=== PATIENT | female | born 1940 | race Caucasian/White ===

== ENCOUNTER 2016-09-27 12:02 | Outpatient (CLI) | payer MEDICARE, OTHER | END 2016-09-27 12:03 | disposition home or self-care (01) | DX: C73 Malignant neoplasm of thyroid gland (principal) ==

== ENCOUNTER 2016-11-23 11:54 | Outpatient (CLI) | payer MEDICARE, OTHER | END 2016-11-23 11:55 | disposition home or self-care (01) | DX: R07.81 Pleurodynia (principal) ==

== ENCOUNTER 2016-11-30 10:44 | Outpatient (CLI) | payer MEDICARE, OTHER | END 2016-11-30 10:45 | disposition home or self-care (01) | DX: Z12.31 Encounter for screening mammogram for malignant neoplasm of breast (principal) ==

== ENCOUNTER 2016-12-22 13:38 | Outpatient (CLI) | payer MEDICARE, OTHER | END 2016-12-22 13:39 | disposition critical access hospital (66) | LOC: EMS 13:38 | PROVIDERS: ATTEND Surgery | DX: S09.90XA Unspecified injury of head, initial encounter (principal); Z79.01 Long term (current) use of anticoagulants; W22.8XXA Striking against or struck by other objects, initial encounter; W18.39XA Other fall on same level, initial encounter; Y92.003 Bedroom of unspecified non-institutional (private) residence as the place of occurrence of the external cause | CPT/HCPCS: A0425; A0429 ==

== ENCOUNTER 2016-12-22 13:58 | Emergency (ER) | payer MEDICARE, OTHER | END 2016-12-22 14:52 | disposition home or self-care (01) | DX: S09.90XA Unspecified injury of head, initial encounter (principal); S00.03XA Contusion of scalp, initial encounter; W18.30XA Fall on same level, unspecified, initial encounter; Y92.009 Unspecified place in unspecified non-institutional (private) residence as the place of occurrence of the external cause; I10 Essential (primary) hypertension; I48.91 Unspecified atrial fibrillation; Z79.01 Long term (current) use of anticoagulants; Z79.82 Long term (current) use of aspirin; E11.9 Type 2 diabetes mellitus without complications; Z79.84 Long term (current) use of oral hypoglycemic drugs ==

== ENCOUNTER 2017-02-27 15:33 | Outpatient (CLI) | payer MEDICARE, OTHER | END 2017-02-27 15:34 | disposition critical access hospital (66) | LOC: EMS 15:33 | PROVIDERS: ATTEND Surgery | DX: R53.1 Weakness (principal); H53.9 Unspecified visual disturbance | CPT/HCPCS: A0425; A0429 ==

== ENCOUNTER 2017-02-27 15:51 | Emergency (ER) | payer MEDICARE, OTHER ==
--- NOTE | 2017-02-27 16:10 | ED Physician Documentation ---
History of Present Illness - Stated complaint Stated Complaint: WEAKNESS - Chief complaint Chief Complaint: General - History obtained from History obtained from: Patient, Family, EMS - History of Present Illness Timing: Other (76-year-old woman with history of paroxysmal atrial fibrillation on Xarelto and had an episode of the grocery store today where she felt like her eyes were fluttering side to side uncontrollably, she paid for her items and went out into the parking lot where she had a presyncopal episode with generalized weakness and was helped to the ground without injury. In total her symptoms lasted about 20 minutes and are now gone. She feels fine at this juncture. There is no associated chest pain, shortness of breathing, pedal edema, black or tarry stools.) Review of Systems Ten Systems: 10 systems reviewed and negative Constitutional: reports: Fatigue. denies: Fever, Chills Cardiac: denies: Chest pain / pressure, Palpitations Respiratory: denies: Dyspnea, Cough PD PAST MEDICAL HISTORY - Past Medical History Cardiovascular: Hypertension, Coronary artery disease, [place], Atrial fibrillation Neuro: TIA Endocrine/Autoimmune: Type 2 diabetes GI: GERD, Hiatal hernia Musculoskeletal: Osteoarthritis - Past Surgical History Past Surgical History: Yes Ortho: Knee replacement, Carpal Tunnel surgery Cardiovascular: Coronary stent HEENT: Tonsil/Adenoidectomy - Present Medications Home Medications: Ambulatory Orders Medication Instructions Recorded Confirmed Folic Acid 1 mg PO DAILY 09/05/14 03/26/15 Isosorbide Mononitrate [Isosorbide 30 mg PO DAILY 09/05/14 03/26/15 Mononitrate ER] Omeprazole [PriLOSEC] 20 mg PO BID 09/05/14 03/25/15 metFORMIN [Glucophage] 500 mg PO BID 09/05/14 03/26/15 Rivaroxaban [Xarelto] 20 mg PO DAILY 10/11/14 03/26/15 Atorvastatin [Lipitor] 40 mg PO DAILY 03/25/15 03/25/15 Docusate Sodium [Colace Clear] 50 mg PO DAILY PRN 03/25/15 03/25/15 Acetaminophen/Diphenhydramine 2 tab PO Q8HR 03/26/15 03/26/15 [Acetaminophen Pm Caplet] Aspirin [Aspir 81] 1 tab PO DAILY 03/26/15 03/26/15 Cholecalciferol (Vitamin D3) 400 unit PO DAILY 03/26/15 03/26/15 [Vitamin D3] Fentanyl [Fentanyl 12mcg patch] 150 each TD 03/26/15 03/26/15 Fluticasone [Flonase] 2 spray NS DAILY 03/26/15 03/26/15 Levothyroxine [Synthroid] 1 tab PO DAILY 03/26/15 03/26/15 Metoprolol Tartrate 1 tab PO BID 03/26/15 03/26/15 Amox/Clav 875/125 [Augmentin] 1 each PO Q12H #14 tablet 02/12/16 - Allergies Allergies/Adverse Reactions: Allergies Allergy/AdvReac Type Severity Reaction Status Date / Time No Known Drug Allergies Allergy Verified 12/22/16 14:02 - Social History Does the pt smoke?: No Smoking Status: Never smoker Does the pt drink ETOH?: No Does the pt have substance abuse?: No - Family History Family history: reports: Non contributory - Immunizations Immunizations are current?: Yes - POLST Patient has POLST: No PD ED PE NORMAL - Vitals Vital signs reviewed: Yes - General General: Alert and oriented X 3, No acute distress - HEENT HEENT: PERRL, EOMI - Neck Neck: Supple, no meningeal sign, No bony TTP - Cardiac Cardiac: RRR, No murmur - Respiratory Respiratory: No respiratory distress, Clear bilaterally - Abdomen Abdomen: Soft, Non tender - Derm Derm: Normal color, Warm and dry - Extremities Extremities: No edema, No calf tenderness / cord - Neuro Neuro: Alert and oriented X 3, Normal speech - Psych Psych: Normal mood, Normal affect Results - Vitals Vitals: Vital Signs - 24 hr 02/27/17 02/27/17 15:52 16:29 Temperature 36.8 C Heart Rate 61 58 L Respiratory 20 18 Rate Blood Pressure 191/75 H 125/58 L O2 Saturation 100 97 Oxygen O2 Source Room air - EKG (time done) 1607 Rate: Rate (enter#) (57) Rhythm: NSR Edison: LAD Intervals: Normal MS QRS: Normal Ischemia: Normal ST segments Computer interpretation: Agree with computer - Labs Labs: Laboratory Tests 02/27/17 02/27/17 02/27/17 16:10 16:10 16:20 WBC 4.2 L RBC 4.48 Hgb 13.1 Hct 38.7 MCV 86.5 MCH 29.3 MCHC 33.8 RDW 15.7 H Plt Count 142 MPV 7.7 L Neut # 2.5 Lymph # 1.3 L [place] # 0.3 Eos # 0.1 Baso # 0.0 Absolute Nucleated RBC 0.00 Nucleated RBCs 0.0 Sodium 140 Potassium 4.0 Chloride 105 Carbon Dioxide 28 Anion Gap 7.0 BUN 9 Creatinine 0.6 Estimated GFR (MDRD) 97 Glucose 105 H Calcium 8.2 L Magnesium 1.4 L Total Bilirubin 0.6 AST 34 ALT 26 Alkaline Phosphatase 77 Total Protein 6.3 L Albumin 3.1 L Globulin 3.2 Albumin/Globulin Ratio 1.0 Lipase 16 L Urine Color STRAW Urine Clarity CLEAR Urine pH 6.0 Ur Specific Hyrum <=1.005 Urine Protein NEGATIVE Urine Glucose (UA) NEGATIVE Urine Ketones NEGATIVE Urine Occult Blood NEGATIVE Urine Nitrite NEGATIVE Urine Bilirubin NEGATIVE Urine Urobilinogen 0.2 (NORMAL) Ur Leukocyte Esterase NEGATIVE Ur Microscopic Review NOT INDICATED Urine Culture Comments NOT INDICATED PD MEDICAL DECISION MAKING - ED course ED course: 76-year-old woman with history of paroxysmal atrial fibrillation presents after not episode of weakness, no evidence of stroke or seizure. She was in A. fib during the episode per the paramedics so that may have been causative but spontaneously converted to sinus rhythm before arrival. She has a normal exam here. Workup demonstrates mild hypomagnesemia which is repleted orally. Departure - Departure Disposition: 01 Home, Self Care Clinical Impression: Muscle weakness, Hypomagnesemia Condition: Stable Record reviewed to determine appropriate education?: Yes Instructions: ED Weakness [facility] Comments: Call your doctor to arrange a follow-up appointment, make the next available appointment. In the interim, return anytime if worse or if new symptoms develop.
[2017-02-27 16:36] LABS: BASOPHILS % (AUTO) 0.4 %; EOSINOPHILS # (AUTO) 0.1 10^3/uL (0.0-0.7); EOSINOPHILS % (AUTO) 1.5 %; HCT - HEMATOCRIT 38.7 % (37.0-47.0); HGB - HEMOGLOBIN 13.1 g/dL (12.0-16.0); LYMPHOCYTES # (AUTO) 1.3 10^3/uL (1.5-3.5); LYMPHOCYTES % (AUTO) 31.5 %; MEAN CORPUSCULAR HEMOGLOBIN 29.3 pg (27.0-31.0); MEAN CORPUSCULAR HGB CONC 33.8 g/dL (32.0-36.0); MEAN CORPUSCULAR VOLUME 86.5 fL (81.0-99.0); MEAN PLATELET VOLUME 7.7 fL (7.9-10.8); MONOCYTES # (AUTO) 0.3 10^3/uL (0.0-1.0); NEUTROPHILS # (AUTO) 2.5 10^3/uL (1.5-6.6); NEUTROPHILS % (AUTO) 59.6 %; RED BLOOD COUNT 4.48 10^6/uL (4.20-5.40); RED CELL DISTRIBUTION WIDTH 15.7 % (12.0-15.0); UNCORRECTED WHITE BLOOD COUNT 4.2 x10^3/uL; WHITE BLOOD COUNT 4.2 x10^3/uL (4.8-10.8)
[2017-02-27 16:42] LABS: BILIRUBIN,URINE NEGATIVE (NEGATIVE)
[2017-02-27 16:44] LABS: UA CHARGE (STRIP ONLY) YES; UR CULTURE IF IND NOT INDICATED
[2017-02-27 16:46] LABS: BILIRUBIN,TOTAL 0.6 mg/dL (0.2-1.0); CALCIUM 8.2 mg/dL (8.5-10.3); CREATININE 0.6 mg/dL (0.4-1.0); MAGNESIUM 1.4 mg/dL (1.7-2.8); TOTAL PROTEIN 6.3 g/dL (6.7-8.2)
[2017-02-27] MEDS ORDERED: MAGNESIUM OXIDE 400 MG TABLET PO STA (16:50)
[2017-02-27] MEDS ORDERED: MAGNESIUM OXIDE 400 MG TABLET PO ONE (16:53)
[2017-02-27 16:58] VITALS: BP 154/67
== END 2017-02-27 17:10 | disposition home or self-care (01) ==
LOC: EDUNIT# → ED 15:51
DX: M62.81 Muscle weakness (generalized) (principal); E83.42 Hypomagnesemia; I48.91 Unspecified atrial fibrillation; Z79.01 Long term (current) use of anticoagulants; I10 Essential (primary) hypertension; I25.10 Atherosclerotic heart disease of native coronary artery without angina pectoris; I25.2 Old myocardial infarction; E11.9 Type 2 diabetes mellitus without complications; Z79.84 Long term (current) use of oral hypoglycemic drugs; K21.9 Gastro-esophageal reflux disease without esophagitis; M19.90 Unspecified osteoarthritis, unspecified site; Z86.73 Personal history of transient ischemic attack (TIA), and cerebral infarction without residual deficits; Z79.82 Long term (current) use of aspirin
CPT/HCPCS: 36415; 80053; 81003; 83690; 83735; 85025; 93005; 99284; A9270; 81001; 87086

== ENCOUNTER 2017-03-03 12:24 | Outpatient (CLI) | payer MEDICARE, OTHER ==
[2017-03-03] MEDS ORDERED: GADOBUTROL 7.5 MMOL/7.5 ML VIAL IVP ONE (14:25)
--- NOTE | 2017-03-03 23:56 | MRI Report ---
REVISED: THIS REPORT WAS ORIGINALLY SIGNED ON 03/03/2017 @ 23:56. ORDERING PROVIDER FIELD REVISED ON 03/05/2017. EXAM: MRI LUMBAR SPINE WITHOUT AND WITH CONTRAST EXAM DATE: 03/03/2017 02:45 PM. CLINICAL HISTORY: CHRONIC BACK PAIN, left knee pain, bilateral foot neuropathy, history of lung cancer. COMPARISONS: None. TECHNIQUE: Multiplanar, multisequence T1-weighted and fluid-sensitive sequences of the lumbar spine from T11 to S2 before and after administration of intravenous contrast. IV contrast: 7.5 mL Gadavist. Other: None. FINDINGS: Spinal Cord: The conus terminates at . No signal abnormality in the visualized spinal cord. Alignment: Normal. No scoliosis or spondylolisthesis. Bone Marrow: Five [id number] lumbar vertebral bodies are assumed. No gross fractures or bone lesions. No bone marrow edema or abnormal enhancement. Disk Levels/Facets: T12-L1: Unremarkable. L1-L2: Unremarkable. L2-L3: There is disk height loss with endplate degenerative changes. There is a broad-based disk bulge. There is moderate facet hypertrophy. There is mild to moderate central canal narrowing. Mild right neural foraminal narrowing. L3-L4: There is a mild disk bulge. There is moderate facet hypertrophy. There is moderate central canal narrowing. There is mild bilateral neural foraminal narrowing. L4-L5: There is 3 mm anterolisthesis of L4 on L5. There is severe bilateral facet hypertrophy. There is moderate central canal narrowing. There is mild bilateral neural foraminal narrowing. L5-S1: Apparent postoperative changes with diskectomy and vertebral body fusion and laminectomies. No central canal or neural foraminal narrowing. Spinal Canal: No enhancing masses within the spinal canal. No epidural abscess. Musculature: Normal. No edema, abnormal enhancement, or fatty atrophy. Other: The visualized pelvic cavity is unremarkable. IMPRESSION: 1. L3-L4 disk bulge and posterior element degenerative changes with moderate central canal narrowing. 2. L4-L5 grade 1 anterolisthesis and posterior element degenerative changes with moderate central canal narrowing. 3. L2-L3 disk bulge and facet hypertrophy with mild to moderate central canal narrowing. 4. Mild right L2-L3, mild bilateral L3-L4, and mild bilateral L4-L5 neural foraminal narrowing. [facility] Referring Provider Line: [phone] SITE ID: [id number]
--- NOTE | 2017-03-06 18:57 | MRI Report ---
EXAM: MRI CERVICAL SPINE WITHOUT AND WITH CONTRAST EXAM DATE: 03/03/2017 01:56 PM. CLINICAL HISTORY: Persistent spine and neck pain. COMPARISON: MR cervical spine 03/28/2014. TECHNIQUE: Multiplanar, multisequence T1-weighted and fluid-sensitive sequences of the cervical spine before and after administration of intravenous contrast. IV contrast: Without and with contrast, 7.5 mL IV Gadavist. Other: None. FINDINGS: Neurologic Structures: The visualized posterior fossa structures are unremarkable. No signal abnormal ity in the visualized spinal cord. Alignment: 2 mm retrolisthesis of C3 on C4. 4 mm anterolisthesis of C7 on T1. Bone Marrow: No gross fractures or bone lesions. No marrow edema or abnormal enhancement. Interspace Levels/Facets: C1-C2: Unremarkable. C2-C3: Left greater than right facet arthropathy without significant canal or foraminal narrowing. C3-C4: Moderate disk height loss and disk desiccation. Minimal retrolisthesis. Posterior disk osteoph yte complex with left greater than right uncovertebral hypertrophy. Left greater than right facet art hropathy. Moderate canal narrowing with mild ventral and dorsal cord impingement. Severe left, mild t o moderate right foraminal narrowing. C4-C5: Disk desiccation. Posterior disk osteophyte complex and ligamentum flavum thickening. Moderate to severe canal narrowing with mild cord impingement. Moderate bilateral foraminal narrowing. C5-C6: Severe disk height loss. Posterior disk osteophyte complex partially effacing the ventral CSF space without cord impingement. Mild to moderate bilateral foraminal narrowing. C6-C7: Moderate disk height loss. Ligamentum flavum thickening. Left greater than right uncovertebral hypertrophy. Moderate left, mild right foraminal narrowing. C7-T1: Disk desiccation. Anterolisthesis. No significant canal narrowing. Mild bilateral facet arthro zakia. Spinal Canal: No enhancing lesions within the spinal canal. No epidural abscess. Musculature: Normal. No edema, enhancement, or fatty atrophy. Other: The paravertebral and prevertebral soft tissues are normal. IMPRESSION: 1. Multilevel degenerative changes with mild ventral and dorsal cord impingement at C3-C4 and C4-C5. 2. At C2-C3, left facet arthropathy, no significant narrowing, unchanged. 3. At C3-C4, slight progression of ligamentum flavum thickening with mild ventral and dorsal cord imp ingement progressive compared to 03/28/2014. No cord signal abnormalities. No significant change in s evere left, mild to moderate right foraminal narrowing. 4. At C4-C5, nonprogressive ventral and dorsal mild cord impingement secondary to disk osteophyte com plex and ligamentum flavum thickening. No cord signal abnormalities. Moderate bilateral foraminal amy rowing appears unchanged. 5. At C5-C6, severe disk height loss, mild to moderate bilateral foraminal narrowing, without signifi cant change. 6. At C6-C7, left greater than right uncovertebral hypertrophy with moderate left, mild right foramin al narrowing. No significant change. 7. At C7-T1, mild grade 1 anterolisthesis. Unchanged. Mild bilateral facet arthropathy without signif icant canal or foraminal narrowing. [facility] Referring Provider Line: [phone] SITE ID: [id number]
--- NOTE | 2017-03-06 18:57 | MRI Report ---
EXAM: MRI THORACIC SPINE WITHOUT AND WITH CONTRAST EXAM DATE: 03/03/2017 01:29 PM. CLINICAL HISTORY: Chronic back pain. History of lung cancer, large hiatal hernia status post right lo wer lobe resection. COMPARISONS: CT chest 05/26/2015. TECHNIQUE: Multiplanar, multisequence T1-weighted and fluid-sensitive sequences of the thoracic spine from C7 to L1 before and after administration of intravenous contrast. IV contrast: 7.[address] Other: None. FINDINGS: Spinal Cord: No signal abnormality in the visualized spinal cord. Alignment: There is minimal, 2 mm anterolisthesis of T1 on T2. Bone Marrow: No gross fractures or bone lesion. No bone marrow edema or abnormal enhancement. Inciden bindu Schmorl's node endplate type changes along the upper anterior L1 endplate. Disk Levels/Facets: Multilevel mild diskogenic degenerative changes with disk desiccation at nearly a ll levels. There is no significant spinal canal or foraminal narrowing. Minimal posterior bulging at T9-T10, T10 -T11 and T11-T12 without significant canal narrowing. Spinal Canal: No enhancing masses within the spinal canal. No epidural abscess. Musculature: There is mild atrophy of the paraspinous muscle. Other: There is a large hiatal hernia. Rounded ovoid T2 hyperintense secretion within the posterior a spect of the visualized trachea at T2 level. Postsurgical changes superimposed over the left lower lo be. Visualized abdomen appears unremarkable. IMPRESSION: 1. No acute abnormalities. No evidence to suggest metastatic lesion. No significant canal or foramina l narrowing. 2. Mild multilevel degenerative changes most pronounced in the lower thoracic spine. 3. Large hiatal hernia. Probable retained secretions and ovoid nonenhancing fluid-like signal intensi ty along the posterior trachea. [facility] Referring Provider Line: [phone] SITE ID: [id number]
== END 2017-03-03 12:25 | disposition home or self-care (01) ==
LOC: DI 12:24
PROVIDERS: ATTEND Physical Medicine & Rehabilitation Pain Medicine
DX: M51.36 Other intervertebral disc degeneration, lumbar region (principal); M43.16 Spondylolisthesis, lumbar region; M47.896 Other spondylosis, lumbar region; Z85.118 Personal history of other malignant neoplasm of bronchus and lung; Z85.01 Personal history of malignant neoplasm of esophagus
CPT/HCPCS: 72156; 72157; 72158; A9585

== ENCOUNTER 2017-03-29 16:08 | Outpatient (CLI) | payer MEDICARE, OTHER ==
--- NOTE | 2017-03-29 17:07 | XRAY Preliminary Report ---
Exam: XR Chest 2 View PA/LAT IMPRESSION: 1. Large hiatal hernia. 2. Findings of COPD with possible chronic tiny effusions. [facility] SITE ID: [id number]
--- NOTE | 2017-03-29 17:09 | XRAY Report ---
EXAM: CHEST RADIOGRAPHY EXAM DATE: 03/29/2017 04:29 PM. CLINICAL HISTORY: SCAPULA Pain, bad COUGH. COMPARISON: 11/09/2014 and 11/23/2016. TECHNIQUE: 2 views. FINDINGS: Lungs/Pleura: Hyperexpanded with flattened diaphragm and coarse lung markings typical of COPD. No def inite acute infiltrate, consolidation, or pneumothorax. Chronic blunting of costophrenic angle; possi ble tiny effusions. Mediastinum: Normal heart size, unchanged. Upper lobe vessels not distended. Large hiatal hernia with prominent air-fluid level. Other: Osteopenia, scoliosis, degenerative changes. IMPRESSION: 1. Large hiatal hernia. 2. Findings of COPD with possible chronic tiny effusions. [facility] Referring Provider Line: [phone] SITE ID: [id number]
== END 2017-03-29 16:09 | disposition home or self-care (01) ==
LOC: DI 16:08
PROVIDERS: ATTEND Internal Medicine
DX: J44.9 Chronic obstructive pulmonary disease, unspecified (principal); K44.9 Diaphragmatic hernia without obstruction or gangrene
CPT/HCPCS: 71020

== ENCOUNTER 2017-04-11 08:42 | Outpatient (CLI) | payer MEDICARE, OTHER ==
--- NOTE | 2017-04-11 13:50 | Mammography Report ---
DIGITAL DIAGNOSTIC RIGHT MAMMOGRAM: 04/11/2017 CLINICAL INDICATION: Rash, pain, family history of breast cancer. TECHNIQUE: Right CC, MLO, true lateral views. COMPARISON: 11/30/2016, 01/15/2015, 01/26/2014, 03/01/2012, 01/19/2011, 01/27/2009. FINDINGS: The right breast again demonstrates scattered fibroglandular densities. Coarse and punctat e, typically benign calcifications are present. No suspicious masses, clustered microcalcifications, or regions of architectural distortion are identified. Specifically, no mammographic abnormality is a ppreciated at the 9 o'clock position of the right breast, at the site of the painful rash indicated b y the patient. IMPRESSION: BENIGN FINDINGS. RECOMMENDATION: CONTINUED CLINICAL MANAGEMENT OF SKIN RASH. ROUTINE ANNUAL SCREENING, DUE IN NOVEMBER, U NLESS OTHERWISE CLINICALLY INDICATED. BIRADS CATEGORY 2-BENIGN FINDINGS. STANDARD QUALIFYING STATEMENTS 1. This examination was reviewed with the aid of Computer-Aided Detection (CAD). 2. A negative or benign imaging report should not delay biopsy if clinically suspicious findings are present. Consider surgical consultation if warranted. More than 5% of cancers are not identified by i yen. 3. Dense breasts may obscure an underlying neoplasm. JOB #: [id number] EXT JOB #:[id number]
== END 2017-04-11 08:43 | disposition home or self-care (01) ==
LOC: DI 08:42
PROVIDERS: ATTEND Internal Medicine
DX: N64.4 Mastodynia (principal); R21 Rash and other nonspecific skin eruption; Z80.3 Family history of malignant neoplasm of breast

== ENCOUNTER 2017-09-02 09:41 | Emergency (ER) | payer MEDICARE, OTHER ==
--- NOTE | 2017-09-02 10:13 | ED Physician Documentation ---
History of Present Illness - Stated complaint Stated Complaint: SORE THROAT/SINUS - Chief complaint Chief Complaint: Cardiac - Additonal information Additional information: hx from pt 77 f hx a fib on xarelot and a heart murmur to ER for dry couhg sore throat sinus congestions soa told nurse she was having chest pressure as well but to me she just says cough and trouble breathing no new leg swelling no contact with pna or flu no travel Review of Systems Constitutional: reports: Fatigue. denies: Fever, Chills Nose: reports: Congestion Throat: reports: Sore throat Respiratory: reports: Cough GI: denies: Vomiting, Diarrhea Musculoskeletal: denies: Extremity swelling (none new) Endocrine: reports: Easy bruising / bleeding (on xarelto) Immunocompromised: denies: Immunocompromised PD PAST MEDICAL HISTORY - Past Medical History Past Medical History: Yes Cardiovascular: Hypertension, Coronary artery disease, [place], Atrial fibrillation Neuro: TIA Endocrine/Autoimmune: Type 2 diabetes GI: GERD, Hiatal hernia Musculoskeletal: Osteoarthritis - Past Surgical History Past Surgical History: Yes General: Other Ortho: Knee replacement, Carpal Tunnel surgery Cardiovascular: Coronary stent HEENT: Tonsil/Adenoidectomy - Present Medications Home Medications: Ambulatory Orders Medication Instructions Recorded Confirmed Folic Acid 1 mg PO DAILY 09/05/14 09/02/17 Isosorbide Mononitrate [Isosorbide 30 mg PO DAILY 09/05/14 09/02/17 Mononitrate ER] Omeprazole [PriLOSEC] 20 mg PO BID 09/05/14 09/02/17 metFORMIN [Glucophage] 1,500 mg PO BID 09/05/14 09/02/17 Rivaroxaban [Xarelto] 20 mg PO DAILY 10/11/14 09/02/17 Atorvastatin [Lipitor] 20 mg PO DAILY 03/25/15 09/02/17 Docusate Sodium [Colace Clear] 250 mg PO PRN PRN 03/25/15 09/02/17 Acetaminophen/Diphenhydramine 650 mg PO Q8HR 03/26/15 09/02/17 [Acetaminophen Pm Caplet] Aspirin [Aspir 81] 1 tab PO DAILY 03/26/15 09/02/17 Cholecalciferol (Vitamin D3) 400 unit PO DAILY 03/26/15 09/02/17 [Vitamin D3] Fentanyl [Fentanyl 12mcg patch] 150 each TD TID 03/26/15 09/02/17 Levothyroxine [Synthroid] 1 tab PO DAILY 03/26/15 09/02/17 Metoprolol Tartrate 75 mg PO BID 03/26/15 09/02/17 Benzonatate [Tessalon] 100 mg PO TID PRN #20 capsule 09/02/17 Multivit-Min/Iron Fum/Folic AC 1 tab PO DAILY 09/02/17 09/02/17 [Acgdz-Eqstaeu-Rsiywtgh Tablet] Nitroglycerin [Nitrostat] 1 tab SQ PRN PRN 09/02/17 09/02/17 Oseltamivir [Tamiflu] 75 mg PO BID #9 capsule 09/02/17 Vit B Cmplx 3/FA/Vit C/Biotin 1 tab PO DAILY 09/02/17 09/02/17 [Nephro-Kathleen Rx Tablet] guaiFENesin/DEXTROMETHORPHAN 10 ml PO Q6H PRN #120 ml 09/02/17 [Robitussin Dm] - Allergies Allergies/Adverse Reactions: Allergies Allergy/AdvReac Type Severity Reaction Status Date / Time No Known Drug Allergies Allergy Verified 09/02/17 09:58 - Social History Does the pt smoke?: No Smoking Status: Never smoker Does the pt drink ETOH?: No Does the pt have substance abuse?: No - Immunizations Immunizations are current?: Yes - POLST Patient has POLST: No PD ED PE NORMAL - Vitals Vital signs reviewed: Yes - HEENT HEENT: PERRL, Moist mucous membranes, Pharynx benign - Neck Neck: Supple, no meningeal sign - Cardiac Cardiac: RRR - Respiratory Respiratory: No respiratory distress, Clear bilaterally - Abdomen Abdomen: Soft, Non tender - Extremities Extremities: Other (mild symm edema) - Neuro Neuro: Alert and oriented X 3 Results - Vitals Vitals: Vital Signs - 24 hr 09/02/17 09/02/17 09/02/17 09:55 11:33 12:41 Temperature 36.6 C Heart Rate 54 L 48 L 57 L Respiratory 16 18 16 Rate Blood Pressure 107/60 95/56 L 109/73 O2 Saturation 96 95 100 Oxygen O2 Source Room air - EKG (time done) 1000 Rate: Rate (enter#) (51) Rhythm: NSR [place]: Normal Intervals: Normal [place] QRS: Normal Ischemia: Normal ST segments - Labs Labs: Laboratory Tests 09/02/17 09/02/17 09/02/17 10:20 10:20 10:20 Troponin I < 0.04 B-Natriuretic Peptide 167 H Influenza A (Rapid) POSITIVE H Influenza B (Rapid) Negative Influenza Types A,B Ag + H - Rads (name of study) CXR Radiology: See rad report (miuld hyperinflation, crhonic blunting of angle, HH, no acute pna) PD MEDICAL DECISION MAKING - ED course ED course: influenza planned to dc on tamiflu BP was little low will give IVF and recheck have source and neg lactate - do not think further eval for sepsis needed Departure - Departure Disposition: Home, Self Care Clinical Impression: Influenza A Instructions: ED Flu, Medication: Tamiflu (Oseltamivir) Follow-Up: Krysta Mcknight MD [Primary Care Provider] - (this week for a recheck ) Prescriptions: Benzonatate [Tessalon] 100 mg PO TID PRN #20 capsule PRN Reason: to ease cough guaiFENesin/DEXTROMETHORPHAN [Robitussin Dm] 10 ml PO Q6H PRN #120 ml PRN Reason: Cough Oseltamivir [Tamiflu] 75 mg PO BID #9 capsule Comments: Rest and drink plenty of fluids Follow up with your PMD for recheck this week Return if worse in any way - influenza can be a very dangerous disease and secondary infections can develop after one is weakened by the flu virus
[2017-09-02] MEDS ORDERED: BENZONATATE 100 MG CAPSULE PO STA (10:14)
--- NOTE | 2017-09-02 10:55 | XRAY Report ---
EXAM: CHEST RADIOGRAPHY EXAM DATE: 09/02/2017 10:31 AM. CLINICAL HISTORY: Cough sp soa. COMPARISON: 03/29/2017. TECHNIQUE: 2 views. FINDINGS: Lungs/Pleura: Chronic blunting of the costophrenic sulci; tiny pleural effusions are not excluded. Mi ld pulmonary hyperinflation suggests COPD. Coarse lung markings. No new pulmonary opacity. Large hiat al hernia with air-fluid level. Mildly tortuous aorta with calcifications. Heart size is normal. Mediastinum: As above. Other: None. IMPRESSION: 1. No convincing acute cardiopulmonary abnormality. 2. Other findings as noted above. [facility] Referring Provider Line: [phone] SITE ID: [id number]
--- NOTE | 2017-09-02 10:55 | XRAY Preliminary Report ---
Exam: XR CHEST 2 VIEW X-RAY IMPRESSION: 1. No convincing acute cardiopulmonary abnormality. 2. Other findings as noted above. [facility] SITE ID: [id number]
[2017-09-02] MEDS ORDERED: OSELTAMIVIR 75 MG CAPSULE PO STA (11:39)
[2017-09-02] MEDS ORDERED: SODIUM CHLORIDE 0.9% 500 ML IV ONE (11:39)
[2017-09-02] MEDS: FLUTICASONE NASAL SPRAY NAS SCH ×2 (12:02→12:03)
[2017-09-02 12:42] VITALS: BP 109/73
== END 2017-09-02 13:20 | disposition home or self-care (01) ==
LOC: ED 09:41
DX: J10.1 Influenza due to other identified influenza virus with other respiratory manifestations (principal); I48.91 Unspecified atrial fibrillation; Z79.01 Long term (current) use of anticoagulants; I10 Essential (primary) hypertension; I25.2 Old myocardial infarction; I25.10 Atherosclerotic heart disease of native coronary artery without angina pectoris; R01.1 Cardiac murmur, unspecified; E11.9 Type 2 diabetes mellitus without complications; Z79.84 Long term (current) use of oral hypoglycemic drugs; M19.90 Unspecified osteoarthritis, unspecified site; K21.9 Gastro-esophageal reflux disease without esophagitis; Z86.73 Personal history of transient ischemic attack (TIA), and cerebral infarction without residual deficits; Z79.82 Long term (current) use of aspirin
CPT/HCPCS: 36415; 71046; 83880; 84484; 87275; 87276; 93005; 96360; 99283; 99284; A9270

== ENCOUNTER 2017-10-03 16:54 | Outpatient (CLI) | payer MEDICARE, OTHER ==
--- NOTE | 2017-10-04 11:37 | Ultrasound Report ---
ULTRASOUND NECK: 10/03/2017 CLINICAL INDICATION: History of thyroid cancer, status post thyroidectomy. TECHNIQUE: Real-time scanning was performed with sales representative groceries static images obtained. FINDINGS: Ultrasound of the thyroid bed was performed. No recurrent or residual mass is seen on either side of the trachea. No cervical adenopathy is appreciated. IMPRESSION: POSTOPERATIVE CHANGES OF THYROIDECTOMY. NO RECURRENT OR RESIDUAL MASS IS IDENTIFIED IN THE THYROID BED. TD: 10/04/2017 11:36
== END 2017-10-03 16:55 | disposition home or self-care (01) ==
LOC: DI 16:54
PROVIDERS: ATTEND Student in an Organized Health Care Education/Training Program
DX: C73 Malignant neoplasm of thyroid gland (principal)
CPT/HCPCS: 76536

== ENCOUNTER 2017-11-06 14:36 | Outpatient (CLI) | payer MEDICARE, OTHER ==
--- NOTE | 2017-11-06 17:24 | XRAY Report ---
RIGHT RIBS: 11/06/2017 CLINICAL INDICATION: Pain. FINDINGS: Oblique views of the right ribs were obtained, with a marker at site of maximal tenderness. There is no evidence of a displaced rib fracture. Moderate hiatal hernia is present, similar to chest x-ray of 09/02/2017. No pneumothorax is appreciated. An old, healed right anterior fifth rib fracture is incidentally noted. IMPRESSION: NO EVIDENCE OF ACUTE DISPLACED RIB FRACTURE. OLD, HEALED RIGHT 5TH RIB FRACTURE. TD: 11/06/2017 17:23
== END 2017-11-06 14:37 | disposition home or self-care (01) ==
LOC: DI 14:36
PROVIDERS: ATTEND Internal Medicine
DX: R07.81 Pleurodynia (principal)

== ENCOUNTER 2017-12-13 15:52 | Outpatient (CLI) | payer MEDICARE, OTHER ==
[2017-12-13 16:14] LABS: CREATININE 0.6 mg/dL (0.4-1.0)
== END 2017-12-13 15:53 | disposition home or self-care (01) ==
LOC: LAB 15:52
PROVIDERS: ATTEND Internal Medicine Cardiovascular Disease
DX: I48.91 Unspecified atrial fibrillation (principal)
CPT/HCPCS: 36415; 82565

== ENCOUNTER 2017-12-13 16:03 | Outpatient (CLI) | payer MEDICARE, OTHER ==
--- NOTE | 2017-12-14 17:32 | Mammography Report ---
DIGITAL SCREENING MAMMOGRAM: 12/13/2017 CLINICAL INDICATION: A 77-year-old for screening. COMPARISON: 03/2017, 11/2016, 01/2015, 01/2014, 02/2012, 01/2011. TECHNIQUE: Routine CC and MLO projections were obtained of the breasts. FINDINGS: The breasts demonstrate scattered fibroglandular densities bilaterally. Coarse and punctate, typically benign calcifications are present. No suspicious masses, clustered microcalcifications, or regions of architectural distortion are identified. IMPRESSION: BENIGN FINDINGS. RECOMMENDATION: Routine annual screening unless otherwise clinically indicated. BI-RADS category 2 benign findings. STANDARD QUALIFYING STATEMENTS 1. This examination was reviewed with the aid of Computed-Aided Detection (CAD). 2. A negative or benign imaging report should not delay biopsy if clinically suspicious findings are present. Consider surgical consultation if warranted. More than 5% of cancers are not identified by imaging. 3. Dense breasts may obscure an underlying neoplasm. TD: 12/14/2017 17:31
== END 2017-12-13 16:04 | disposition home or self-care (01) ==
LOC: DI 16:03
PROVIDERS: ATTEND Internal Medicine
DX: Z12.31 Encounter for screening mammogram for malignant neoplasm of breast (principal)
CPT/HCPCS: 77067

== ENCOUNTER 2018-01-17 06:12 | Day surgery (SDC) | payer MEDICARE, OTHER ==
[2018-01-17] MEDS ORDERED: LACTATED RINGERS 500 ML IV ONE (06:25)
[2018-01-17] MEDS ORDERED: PROPARACAINE 0.5% OPHTH DROPS 15 ML ONE (06:31)
[2018-01-17] MEDS ORDERED: CYCLOPENTOLATE 1% OPHTH DROPS 2 ML ONE (06:31)
[2018-01-17] MEDS ORDERED: PHENYLEPHRINE 2.5% OPHTH 2 ML DROPS ONE (06:31)
[2018-01-17] MEDS ORDERED: KETOROLAC 0.45% OPHTH DROPS ONE (06:31)
[2018-01-17] MEDS ORDERED: CYCLOPENTOLATE 1% OPHTH DROPS 2 ML RIGHTEYE ONE (06:40)
[2018-01-17] MEDS ORDERED: KETOROLAC 0.45% OPHTH DROPS RIGHTEYE ONE (06:40)
[2018-01-17] MEDS ORDERED: PHENYLEPHRINE 2.5% OPHTH 2 ML DROPS RIGHTEYE ONE (06:40)
[2018-01-17] MEDS ORDERED: PROPARACAINE 0.5% OPHTH DROPS 15 ML RIGHTEYE ONE ×2 (06:40→07:41)
[2018-01-17] MEDS ORDERED: EPINEPHrine 1 MG/ML AMP ONE (07:07)
[2018-01-17] MEDS ORDERED: BRIMONIDINE 0.2% OPHTH DROPS 5 ML ONE (07:08)
[2018-01-17] MEDS ORDERED: TIMOLOL 0.5% OPHTH DROPS ONE (07:08)
[2018-01-17] MEDS ORDERED: TRIAMCIN/MOXIFLOX OPHTHALMIC 0.6 ML VIAL IO ONE ×2 (07:08→07:53)
[2018-01-17] MEDS ORDERED: BSS/LIDOCAINE/EPINEPHRINE 1 ML SYRINGE ONE ×2 (07:09→07:54)
[2018-01-17] MEDS ORDERED: MIDAZOLAM 2 MG/2 ML VIAL IVP ONE (07:15)
[2018-01-17] MEDS ORDERED: BRIMONIDINE 0.2% OPHTH DROPS 5 ML OPTH ONE (07:38)
[2018-01-17] MEDS ORDERED: CHONDR SULF/HYALURONATE SYRINGE IO ONE (07:39)
[2018-01-17] MEDS ORDERED: EPINEPHrine 1 MG/ML AMP IR ONE (07:39)
[2018-01-17] MEDS ORDERED: TIMOLOL 0.5% OPHTH DROPS RIGHTEYE ONE (07:40)
[2018-01-17] MEDS ORDERED: BSS/LIDOCAINE/EPINEPHRINE 1 ML SYRINGE IO ONE (07:41)
[2018-01-17] MEDS ORDERED: VANCOMYCIN OPHTHALMI 8MG/0.8ML 8 MG/0.8 ML SYRINGE IO ONE ×2 (07:42→07:54)
[2018-01-17 08:01] VITALS: BP 132/63
--- NOTE | 2018-01-17 14:21 | OPERATIVE REPORT ---
DATE OF SERVICE: 01/17/2018 Physician: Isacc Ovalle MD PREOPERATIVE DIAGNOSIS: Visually significant cataract, right eye. This was her first cataract surgery. POSTOPERATIVE DIAGNOSIS: Visually significant cataract, right eye. This was her first cataract surgery. NAME OF PROCEDURE: Phacoemulsification with posterior chamber intraocular lens implant, right eye. SURGEON: Isacc Ovalle MD ANESTHESIA: Monitored anesthesia care. COMPLICATIONS: None. OPERATIVE INDICATIONS: This is a 77-year-old woman with progressive vision loss in the right eye due to 3-4+ nuclear sclerotic and 2-3+ cortical cataract. Best corrected visual acuity was 20/25 with count fingers at 8 feet vision glare in the right eye. INDICATIONS FOR SURGERY: Overall decrease in vision, difficulty seeing words on a computer screen, difficulty seeing words closed caption or game scores on TV; difficulty driving in low light or at night, difficulty driving at night because of headlights from other vehicles, and difficulty with glare or bright lights in any situation. She was consented at length concerning risks and benefits of cataract surgery after which she expressed desire to proceed with surgery. OPERATIVE PROCEDURE: The patient was taken into OR #3 and placed under monitored anesthesia care. A surgical timeout was conducted to confirm correct patient, correct procedure, and correct surgical site. She was given topical anesthesia, and then prepped and draped in the usual sterile fashion. The eye was entered at the 12 and 9-o'clock positions. Intracameral Shugarcaine was injected into the anterior chamber, followed by Viscoat. A continuous-tear curvilinear capsulorrhexis was performed. The nucleus was hydrodissected and phacoemulsified. The cortex was evacuated using automated infusion and aspiration. Provisc was injected in the capsular bag and a 21.5 diopter intraocular lens inserted in the bag. Approximately 0.7 mL of a mixture of triamcinolone and moxifloxacin was injected subconjunctivally in the superior quadrant for infection and inflammation prophylaxis. Additionally, 0.5 mL of vancomycin was injected subconjunctivally as well. I and A was used to evacuate the viscoelastic material. The eye was inflated to physiologic pressure using balanced salt solution and found to be watertight. The patient was taken from the operating room in good condition and given postop instructions. TD: 01/17/2018 08:05 ADRI
== END 2018-01-17 06:13 | disposition home or self-care (01) ==
LOC: SDS 06:12
PROVIDERS: ATTEND Ophthalmology
PROC: 08RJ3JZ Replacement of Right Lens with Synthetic Substitute, Percutaneous Approach (ICD-10-PCS; principal; 2018-01-17 07:30)
DX: H25.811 Combined forms of age-related cataract, right eye (principal); E11.9 Type 2 diabetes mellitus without complications; I48.91 Unspecified atrial fibrillation; Z79.01 Long term (current) use of anticoagulants; Z79.82 Long term (current) use of aspirin; Z79.84 Long term (current) use of oral hypoglycemic drugs
CPT/HCPCS: 66984; A9270; J3490; V2632

== ENCOUNTER 2018-03-07 06:10 | Day surgery (SDC) | payer MEDICARE, OTHER ==
[2018-03-07] MEDS ORDERED: PROPARACAINE 0.5% OPHTH DROPS 15 ML ONE (06:42)
[2018-03-07] MEDS ORDERED: CYCLOPENTOLATE 1% OPHTH DROPS 2 ML ONE (06:42)
[2018-03-07] MEDS ORDERED: KETOROLAC 0.45% OPHTH DROPS ONE (06:42)
[2018-03-07] MEDS ORDERED: PHENYLEPHRINE 2.5% OPHTH 2 ML DROPS ONE (06:42)
[2018-03-07] MEDS ORDERED: KETOROLAC 0.45% OPHTH DROPS LEFTEYE ONE (06:45)
[2018-03-07] MEDS ORDERED: PHENYLEPHRINE 2.5% OPHTH 2 ML DROPS LEFTEYE ONE (06:45)
[2018-03-07] MEDS ORDERED: PROPARACAINE 0.5% OPHTH DROPS 15 ML LEFTEYE ONE ×2 (06:45→07:39)
[2018-03-07] MEDS ORDERED: CYCLOPENTOLATE 1% OPHTH DROPS 2 ML LEFTEYE ONE (06:45)
[2018-03-07] MEDS ORDERED: LACTATED RINGERS 500 ML IV ONE (07:05)
[2018-03-07] MEDS ORDERED: EPINEPHrine 1 MG/ML AMP ONE (07:23)
[2018-03-07] MEDS ORDERED: TRIAMCIN/MOXIFLOX OPHTHALMIC 0.6 ML VIAL IO ONE (07:23)
[2018-03-07] MEDS ORDERED: BSS/LIDOCAINE/EPINEPHRINE 1 ML SYRINGE ONE (07:24)
[2018-03-07] MEDS ORDERED: TIMOLOL 0.5% OPHTH DROPS ONE (07:24)
[2018-03-07] MEDS ORDERED: BRIMONIDINE 0.2% OPHTH DROPS 5 ML ONE (07:24)
[2018-03-07] MEDS ORDERED: VANCOMYCIN OPHTHALMI 8MG/0.8ML 8 MG/0.8 ML SYRINGE IO ONE (07:25)
[2018-03-07] MEDS ORDERED: MIDAZOLAM 2 MG/2 ML VIAL IVP ONE (07:35)
[2018-03-07] MEDS ORDERED: BRIMONIDINE 0.2% OPHTH DROPS 5 ML OPTH ONE (07:37)
[2018-03-07] MEDS ORDERED: EPINEPHrine 1 MG/ML AMP IVP ONE (07:37)
[2018-03-07] MEDS ORDERED: EPINEPHrine 1 MG/ML AMP IR ONE (07:37)
[2018-03-07] MEDS ORDERED: CHONDR SULF/HYALURONATE SYRINGE IO ONE (07:38)
[2018-03-07] MEDS ORDERED: BSS/LIDOCAINE/EPINEPHRINE 1 ML SYRINGE IO ONE (07:38)
[2018-03-07] MEDS ORDERED: TIMOLOL 0.5% OPHTH DROPS OPTH ONE (07:38)
[2018-03-07 08:16] VITALS: BP 109/56
--- NOTE | 2018-03-07 10:19 | OPERATIVE REPORT ---
DATE OF SERVICE: 03/07/2018 Physician: Isacc Ovalle MD PREOPERATIVE DIAGNOSIS: Visually significant cataract, left eye. Cataract surgery was performed on the right eye on 01/17/2018. POSTOPERATIVE DIAGNOSIS: Visually significant cataract, left eye. Cataract surgery was performed on the right eye on 01/17/2018. PROCEDURE: Phacoemulsification with posterior chamber intraocular lens implant, left eye. SURGEON: Isacc Ovalle MD ANESTHESIA: Monitored anesthesia care. COMPLICATIONS: None. OPERATIVE INDICATIONS: This is a 77-year-old woman with progressive vision loss in the left eye due to 3+ nuclear sclerotic and 2-3+ cortical cataract. Best corrected visual acuity was 20/20 with glare to count fingers at 8 feet. Indications for surgery were difficulty seeing words on a computer screen, difficulty seeing words, closed caption or game scores on TV, difficulty driving in low light or at night, difficulty driving at night because of headlights from other vehicles, and difficulty with glare or bright lights in any situation. She was consented at length concerning risks and benefits of cataract surgery. Afterward, she expressed a desire to proceed with surgery. OPERATIVE PROCEDURE: The patient was taken to OR #3 and placed under monitored anesthesia care. A surgical timeout was conducted confirming correct patient, correct procedure, and correct surgical site. She was given topical anesthesia, and prepped and draped in the usual sterile fashion. The eye was entered at the 6 and 3 o'clock position. Intracameral Shugarcaine was injected into the anterior chamber, followed by Viscoat. A continuous-tear curvilinear capsulorrhexis was performed. The nucleus was hydrodissected and phacoemulsified. The cortex was evacuated using automated infusion and aspiration. Provisc was injected in the capsular bag, and a 21.5 diopter intraocular lens was inserted in the bag. Approximately 0.7 mL of a mixture of triamcinolone, moxifloxacin, and vancomycin was injected subconjunctivally in the superior quadrant for infection and inflammation prophylaxis. I and A, was used to evacuate the viscoelastic material. The eye was inflated to physiologic pressure using balanced salt solution and found to be watertight. The patient was taken from the operating room in good condition and given postop instructions. TD: 03/07/2018 08:02
== END 2018-03-07 06:11 | disposition home or self-care (01) ==
LOC: SDS 06:10
PROVIDERS: ATTEND Ophthalmology
PROC: 08RK3JZ Replacement of Left Lens with Synthetic Substitute, Percutaneous Approach (ICD-10-PCS; principal; 2018-03-07 07:30)
DX: H25.812 Combined forms of age-related cataract, left eye (principal); I25.10 Atherosclerotic heart disease of native coronary artery without angina pectoris; I10 Essential (primary) hypertension; E11.9 Type 2 diabetes mellitus without complications; E78.5 Hyperlipidemia, unspecified; Z87.891 Personal history of nicotine dependence; Z85.118 Personal history of other malignant neoplasm of bronchus and lung; I48.91 Unspecified atrial fibrillation; Z85.01 Personal history of malignant neoplasm of esophagus
CPT/HCPCS: 66984; A9270; J3490; V2632

== ENCOUNTER 2018-11-01 15:40 | Outpatient (CLI) | payer MEDICARE, OTHER | END 2018-11-01 15:41 | disposition home or self-care (01) | LOC: LAB 15:40 | PROVIDERS: ATTEND Student in an Organized Health Care Education/Training Program | DX: C73 Malignant neoplasm of thyroid gland (principal) | CPT/HCPCS: 36415; 84443; 86376; 86800 ==

== ENCOUNTER 2018-11-09 09:24 | Outpatient (CLI) | payer MEDICARE, OTHER | END 2018-11-09 09:25 | disposition home or self-care (01) | LOC: LAB 09:24 | PROVIDERS: ATTEND Student in an Organized Health Care Education/Training Program | DX: C73 Malignant neoplasm of thyroid gland (principal) | CPT/HCPCS: 84432; 86800 ==

== ENCOUNTER 2018-11-15 09:26 | Outpatient (CLI) | payer MEDICARE, OTHER ==
--- NOTE | 2018-11-15 10:54 | CT Report ---
Reason: HEMATURIA Procedure Date: 11/15/2018 Accession Number: [id number] / [id number] Procedure: CT - Abdomen/Pelvis WO CPT Code: FULL RESULT: EXAM: CT ABDOMEN AND PELVIS (CT KUB) EXAM DATE: 11/15/2018 09:39 AM. CLINICAL HISTORY: Hematuria. COMPARISONS: ABDOMEN/PELVIS W/ 03/26/2015 2:47 AM. TECHNIQUE: Routine axial helical CT imaging was performed through the abdomen and pelvis without IV contrast. Reconstructions: Coronal and sagittal. In accordance with CT protocol optimization, one or more of the following dose reduction techniques were utilized for this exam: automated exposure control, adjustment of mA and/or KV based on patient size, or use of iterative reconstructive technique. FINDINGS: Lung Bases: Unremarkable. Right Kidney/Ureter: No stones, hydronephrosis, or hydroureter. No perinephric fat stranding. 14 mm water density cyst is again noted of the anterior lower pole. Left Kidney/Ureter: No stones, hydronephrosis, or hydroureter. No perinephric fat stranding. Stable pattern of phleboliths noted within the left renal vein. Other Solid Organs: Noncontrast images of the solid organs are grossly unremarkable. Gallbladder/Bile Ducts: Gallbladder is surgically absent. There is no biliary ductal dilatation. Peritoneal Cavity: Stable appearance of very large hiatal hernia. Air-filled duodenal diverticulum near the ligament of Treitz. There is an atypical configuration to the ascending colon extending to the hepatic flexure; the segment of colon is diminished in caliber with an ahaustral appearance and shows abrupt transition from normal-appearing cecum proximal to mildly dilated transverse colon distal to the transition. Process involves roughly a 15 cm long segment. No appreciable masses, pericolonic inflammatory stranding or mucosal thickening. There is distal colonic diverticulosis without CT evidence of diverticulitis. Pelvic Organs: No bladder stones or wall thickening. Noncontrast images of the visualized pelvic organs are unremarkable. Vasculature: Atherosclerotic deposition commensurate with age. Other: None. IMPRESSION: 1. No appreciable urinary tract stone or hydronephrosis. Etiology of hematuria not identified. 2. Atypical appearance to 15 cm long segment of ascending colon to hepatic flexure as described. No appreciable mass or mucosal thickening on the provided imaging. Process may indicate colonic spasm, perhaps as a reaction to subclinical colitis. Recommend further evaluation with CT with enteric and IV contrast. 3. Colonic diverticulosis without evidence of diverticulitis. 4. Stable very large hiatal hernia. RADIA
== END 2018-11-15 09:27 | disposition home or self-care (01) ==
LOC: DI 09:26
PROVIDERS: ATTEND Internal Medicine
DX: R31.9 Hematuria, unspecified (principal); K57.30 Diverticulosis of large intestine without perforation or abscess without bleeding; K44.9 Diaphragmatic hernia without obstruction or gangrene
CPT/HCPCS: 74176

== ENCOUNTER 2018-11-16 15:37 | Outpatient (CLI) | payer MEDICARE, OTHER ==
--- NOTE | 2018-11-18 08:53 | Ultrasound Report ---
Reason: THYROID CANCER Procedure Date: 11/16/2018 Accession Number: [id number] / [id number] Procedure: US - Head or Neck Soft Tissue CPT Code: FULL RESULT: EXAM: THYROID ULTRASOUND EXAM DATE: 11/16/2018 05:15 PM. CLINICAL HISTORY: THYROID CANCER. COMPARISON: HEAD OR NECK SOFT TISSUE 10/03/2017 5:00 PM. TECHNIQUE: Real time sonographic imaging of the thyroid was performed by the bush hog operator. Multiple ict sales representative static images were saved for review. FINDINGS: THYROID GLAND: Surgically absent. No residual thyroid tissue or evidence for mass. LYMPH NODES: No adenopathy demonstrated in the central or lateral compartment. OTHER: None. IMPRESSION: 1. Prior thyroid resection. No evidence of residual thyroid tissue or recurrent mass. Management recommendations are based on 2015 [employer] Management Guidelines for Adult Patients with Thyroid Nodules and Differentiated Thyroid Cancer. RADIA
== END 2018-11-16 15:38 | disposition home or self-care (01) ==
LOC: DI 15:37
PROVIDERS: ATTEND Student in an Organized Health Care Education/Training Program
DX: C73 Malignant neoplasm of thyroid gland (principal); E89.0 Postprocedural hypothyroidism
CPT/HCPCS: 76536

== ENCOUNTER 2019-01-10 15:23 | Outpatient (CLI) | payer MEDICARE, OTHER ==
--- NOTE | 2019-01-13 08:51 | Mammography Report ---
Reason: ANNUAL SCREENING Procedure Date: 01/10/2019 Accession Number: [id number] / [id number] Procedure: NIKHIL - Screening Mammo Dig Bilat CPT Code: FULL RESULT: EXAM: Screening Mammo Dig Bilat DATE: 01/10/2019 3:43 PM CLINICAL HISTORY: Screening encounter. No reported risk factors. TECHNIQUE: (B) - Bilateral CC and MLO views were obtained. COMPARISON: 12/13/2017 through 01/15/2015. PARENCHYMAL PATTERN: (F) - The breast(s) demonstrate(s) diffuse fatty replacement. FINDINGS: Redemonstration of coarse typically benign bilateral calcifications. There are no suspicious masses, calcifications, or areas of distortion. IMPRESSION: Benign findings. BI-RADS category 2. RECOMMENDATION: (ANNUAL) - Recommend routine annual screening mammography. BI-RADS CATEGORY: (2) - Benign Findings. STANDARD QUALIFYING STATEMENTS: 1. This examination was not reviewed with the aid of Computer-Aided Detection (CAD). 2. A negative or benign imaging report should not preclude biopsy if clinically suspicious findings are present. 3. Dense breasts may obscure an underlying neoplasm. 4. This examination was reviewed without the aid of 3D breast imaging (tomosynthesis).
== END 2019-01-10 15:24 | disposition home or self-care (01) ==
LOC: DI 15:23
PROVIDERS: ATTEND Internal Medicine
DX: Z12.31 Encounter for screening mammogram for malignant neoplasm of breast (principal)
CPT/HCPCS: 77067

== ENCOUNTER 2019-02-26 10:01 | Outpatient (CLI) | payer MEDICARE, OTHER | END 2019-02-26 10:02 | disposition critical access hospital (66) | LOC: EMS 10:01 | PROVIDERS: ATTEND Surgery | DX: R51 Headache (principal); W06.XXXA Fall from bed, initial encounter; W22.8XXA Striking against or struck by other objects, initial encounter; Y92.003 Bedroom of unspecified non-institutional (private) residence as the place of occurrence of the external cause; Z79.01 Long term (current) use of anticoagulants | CPT/HCPCS: A0425; A0429 ==

== ENCOUNTER 2019-02-26 10:21 | Emergency (ER) | payer MEDICARE, OTHER ==
--- NOTE | 2019-02-26 10:30 | ED Physician Documentation ---
PD HPI Fall - Stated complaint Stated Complaint: GLF - History obtained from History obtained from: Patient, EMS - History of Present Illness Mechanism of injury: Tripped (on uneven footing and fell backward, striking back of head. No LOC. Just could not get herself back up. could not get her up either, so called EMS.) Fall distance: Standing position Where injury occurred: Home Timing - onset: Today Injury(ies) location: Head (back). No: Neck, Chest, Abdomen Associated symptoms: No: LOC, AMS, Weakness, Paresthesias, Dyspnea Symptoms improve with: Meds (Tylenol) Worsens with: Palpation. No: Movement Contributing factors: Anticoagulated. No: Intoxicated Similar symptoms before: Has not had sx before Review of Systems Constitutional: denies: Fever, Chills Nose: denies: Rhinorrhea / runny nose, Congestion Throat: denies: Sore throat Cardiac: denies: Chest pain / pressure, Palpitations Respiratory: denies: Cough GI: denies: Abdominal Pain, Nausea, Vomiting Skin: denies: Abrasion (s), Laceration (s) Neurologic: denies: Focal weakness, Numbness, Near syncope, Altered mental status PD PAST MEDICAL HISTORY - Past Medical History Cardiovascular: Hypertension, High cholesterol, Coronary artery disease, [place], Atrial fibrillation Respiratory: Other Endocrine/Autoimmune: Type 2 diabetes GI: GERD, Hiatal hernia, Other : Incontinence HEENT: Chronic vision loss, Other Psych: Depression Musculoskeletal: Osteoarthritis, Fibromyalgia - Past Surgical History Past Surgical History: Yes General: Cholecystectomy, Hiatal hernia repair, Colonoscopy, Other Ortho: Knee replacement, Carpal Tunnel surgery Cardiovascular: Coronary stent HEENT: Tonsil/Adenoidectomy, Other - Present Medications Home Medications: Ambulatory Orders Medication Instructions Recorded Confirmed Folic Acid 1 mg PO DAILY 09/05/14 02/26/19 Isosorbide Mononitrate [Isosorbide 30 mg PO DAILY 09/05/14 02/26/19 Mononitrate ER] Omeprazole [PriLOSEC] 20 mg PO BID 09/05/14 02/26/19 metFORMIN [Glucophage] 1,500 mg PO BID 09/05/14 02/26/19 Rivaroxaban [Xarelto] 20 mg PO DAILY 10/11/14 02/26/19 Atorvastatin [Lipitor] 20 mg PO DAILY 03/25/15 02/26/19 Aspirin [Aspir 81] 1 tab PO DAILY 03/26/15 02/26/19 Fentanyl [Fentanyl 12mcg patch] 75 mcg TD ONCE 03/26/15 02/26/19 Levothyroxine [Synthroid] 100 tab PO DAILY 03/26/15 02/26/19 Metoprolol Tartrate 75 mg PO BID 03/26/15 02/26/19 Nitroglycerin [Nitrostat] 1 tab SQ PRN PRN 09/02/17 02/26/19 Magnesium 250 mg PO DAILY 01/16/18 02/26/19 - Allergies Allergies/Adverse Reactions: Allergies Allergy/AdvReac Type Severity Reaction Status Date / Time No Known Drug Allergies Allergy Verified 02/26/19 10:38 - Social History Does the pt smoke?: No Smoking Status: Never smoker Does the pt drink ETOH?: No Does the pt have substance abuse?: No - Immunizations Immunizations are current?: Yes - POLST Patient has POLST: No PD ED PE NORMAL - Vitals Vital signs reviewed: Yes - General General: Alert and oriented X 3, No acute distress, Well developed/nourished - HEENT HEENT: PERRL, EOMI, Other (some local tenderness back of head without deformity. ) - Neck Neck: Supple, no meningeal sign, No bony TTP, No adenopathy - Cardiac Cardiac: RRR - Respiratory Respiratory: No respiratory distress, Clear bilaterally - Abdomen Abdomen: Soft, Non tender - Back Back: No spinal TTP - Derm Derm: Normal color, Warm and dry - Neuro Neuro: Alert and oriented X 3, No motor deficit, No sensory deficit, Normal speech Eye Opening: Spontaneous Motor: Obeys Commands Verbal: Oriented GCS Score: 15 Results - Vitals Vitals: Vital Signs - 24 hr 02/26/19 02/26/19 10:21 12:00 Temperature 35.7 C L Heart Rate 68 68 Respiratory 16 18 Rate Blood Pressure 145/78 H 134/78 H O2 Saturation 100 Oxygen O2 Source Room air - Labs Labs: Laboratory Tests 02/26/19 02/26/19 02/26/19 10:45 10:45 10:45 WBC 3.3 L RBC 4.32 Hgb 12.3 Hct 38.7 MCV 89.6 MCH 28.5 MCHC 31.8 L RDW 14.5 Plt Count 149 MPV 9.4 Neut # (Auto) 1.5 Lymph # (Auto) 1.4 L Webster # (Auto) 0.2 Eos # (Auto) 0.1 Baso # (Auto) 0.0 Absolute Nucleated RBC 0.00 Nucleated RBC % 0.0 PT 22.6 H INR 2.0 H APTT 46.5 H Sodium 142 Potassium 3.9 Chloride 104 Carbon Dioxide 26 Anion Gap 12.0 BUN 9 Creatinine 0.5 Estimated GFR (MDRD) 119 Glucose 122 H Calcium 8.3 L Magnesium 1.6 L Total Bilirubin 0.7 AST 24 ALT 23 Alkaline Phosphatase 62 Total Protein 6.0 L Albumin 3.3 Globulin 2.7 Albumin/Globulin Ratio 1.2 Lipase 24 - Rads (name of study) head CT Radiology: Prelim report reviewed (no acute process, no ICH. 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 No follow up needed for this size of it. ), considered differential, d/w patient Departure - Departure Disposition: 01 Home, Self Care Clinical Impression: Anticoagulant long-term use Accidental fall Qualifiers: Encounter type: initial encounter Qualified Code(s): W19.XXXA - Unspecified fall, initial encounter Head contusion Qualifiers: Encounter type: initial encounter Contusion of head detail: scalp Qualified Code(s): S00.03XA - Contusion of scalp, initial encounter Condition: Stable Record reviewed to determine appropriate education?: Yes Instructions: ED Contusion Scalp Follow-Up: Krysta Mcknight MD [Primary Care Provider] - Comments: Your head CT does not show any signs of bleeding or fractures. As discussed there was an incidental finding of a old calcified small aneurysm that has not changed over time and is too small to worry about. I mention it just because it was mentioned on the CT report. Tylenol if needed for headaches. I would anticipate being sore for a day or 2. Return if increasing head injury symptoms. Discharge Date/Time: 02/26/19 12:38
[2019-02-26] MEDS ORDERED: ACETAMINOPHEN 500 MG TABLET PO STA (10:50)
[2019-02-26 10:55] LABS: BASOPHILS % (AUTO) 0.6 %; EOSINOPHILS # (AUTO) 0.1 10^3/uL (0.0-0.7); EOSINOPHILS % (AUTO) 2.1 %; HGB - HEMOGLOBIN 12.3 g/dL (12.0-16.0); LYMPHOCYTES # (AUTO) 1.4 10^3/uL (1.5-3.5); MEAN CORPUSCULAR HEMOGLOBIN 28.5 pg (27.0-31.0); MEAN CORPUSCULAR HGB CONC 31.8 g/dL (32.0-36.0); MEAN CORPUSCULAR VOLUME 89.6 fL (81.0-99.0); MEAN PLATELET VOLUME 9.4 fL (7.9-10.8); MONOCYTES # (AUTO) 0.2 10^3/uL (0.0-1.0); MONOCYTES % (AUTO) 7.3 %; NEUTROPHILS # (AUTO) 1.5 10^3/uL (1.5-6.6); NEUTROPHILS % (AUTO) 46.7 %; PLT - PLATELET COUNT 149 10^3/uL (130-450); RED BLOOD COUNT 4.32 10^6/uL (4.20-5.40); RED CELL DISTRIBUTION WIDTH 14.5 % (12.0-15.0); WHITE BLOOD COUNT 3.3 x10^3/uL (4.8-10.8)
[2019-02-26 11:03] LABS: PT - PROTHROMBIN TIME 22.6 secs (9.9-12.6)
[2019-02-26 11:06] LABS: ALBUMIN 3.3 g/dL (3.2-5.5); ALBUMIN/GLOBULIN RATIO 1.2 (1.0-2.2); BILIRUBIN,TOTAL 0.7 mg/dL (0.2-1.0); CALCIUM 8.3 mg/dL (8.5-10.3); CREATININE 0.5 mg/dL (0.4-1.0); MAGNESIUM 1.6 mg/dL (1.7-2.8)
[2019-02-26 11:10] LABS: PARTIAL THROMBOPLASTIN TIME 46.5 secs (24.9-33.3)
--- NOTE | 2019-02-26 11:40 | CT Report ---
Reason: fell and struck head; on Xarelto Procedure Date: 02/26/2019 Accession Number: [id number] / [id number] Procedure: CT - HEAD WO CPT Code: FULL RESULT: EXAM: CT HEAD EXAM DATE: 02/26/2019 11:13 AM. CLINICAL HISTORY: Fell and struck head; on Xarelto. COMPARISON: HEAD W/O 12/22/2016 2:14 PM, BRAIN/IACS 11/14/2008 9:55 AM. TECHNIQUE: Multiaxial CT images were obtained from the foramen magnum to the vertex. Reformats: Sagittal and coronal. IV contrast: None. In accordance with CT protocol optimization, one or more of the following dose reduction techniques were utilized for this exam: automated exposure control, adjustment of mA and/or KV based on patient size, or use of iterative reconstructive technique. FINDINGS: Parenchyma: No intraparenchymal hemorrhage. No evidence of mass, midline shift. Green-white differentiation is distinct. Extraaxial Spaces: Basal cisterns are patent. No subdural or epidural collections identified. Ventricles: Normal in size and position. Sinuses and Orbits: Imaged paranasal sinuses, orbits, and mastoids show no significant abnormality. Bones: No evidence of fracture or calvarial defect. Other: As seen on image 2 series 3 there is a stable 0.6 x 0.7 cm calcification with appearance suggestive of vascular aneurysm, posterior circulation., Possibly also present retrospectively on the MRI of the brain in 2008 on image 1 series 801. IMPRESSION: No acute intracranial abnormality. Question posterior circulation aneurysm, likely unchanged compared to 2017 as described. RADIA
[2019-02-26 12:57] VITALS: BP 134/78
== END 2019-02-26 12:38 | disposition home or self-care (01) ==
LOC: EDUNIT# → ED 10:21
DX: S00.03XA Contusion of scalp, initial encounter (principal); W01.0XXA Fall on same level from slipping, tripping and stumbling without subsequent striking against object, initial encounter; Y92.009 Unspecified place in unspecified non-institutional (private) residence as the place of occurrence of the external cause; E11.9 Type 2 diabetes mellitus without complications; I10 Essential (primary) hypertension; I72.9 Aneurysm of unspecified site; Z79.84 Long term (current) use of oral hypoglycemic drugs; Z79.01 Long term (current) use of anticoagulants
CPT/HCPCS: 36415; 70450; 80053; 83690; 83735; 85025; 85610; 85730; 99282; 99284; A9270

== ENCOUNTER 2019-05-20 09:30 | Outpatient (CLI) | payer MEDICARE, OTHER ==
--- NOTE | 2019-05-21 04:59 | XRAY Report ---
Reason: L SHOULDER PAIN Procedure Date: 05/20/2019 Accession Number: [id number] / [id number] Procedure: XR - Shoulder 3 View LT CPT Code: FULL RESULT: EXAM: LEFT SHOULDER RADIOGRAPHY EXAM DATE: 05/20/2019 09:46 AM CLINICAL HISTORY: Left shoulder pain. COMPARISON: None. TECHNIQUE: 3 views. FINDINGS: Bones: No acute displaced fractures or suspicious bony lesion. However, bones are at least moderately osteopenic. This reduces exam sensitivity and specificity for detection of subtle bony lesions and/or fractures. Joints: No dislocation. There is moderate to severe degenerative change of the shoulder. Soft Tissues: Findings of partial left pneumonectomy. Mild atelectasis and/or scarring within the left midlung field. No significant soft tissue swelling. IMPRESSION: No acute osseous abnormality demonstrated. RADIA
== END 2019-05-20 09:31 | disposition home or self-care (01) ==
LOC: DI 09:30
PROVIDERS: ATTEND Internal Medicine
DX: M19.012 Primary osteoarthritis, left shoulder (principal)

== ENCOUNTER 2019-05-20 09:50 | Outpatient (CLI) | payer MEDICARE, OTHER ==
[2019-05-20 10:19] LABS: CALCIUM 8.6 mg/dL (8.5-10.3); CREATININE 0.7 mg/dL (0.4-1.0)
[2019-05-20 10:50] LABS: HEMOGLOBIN A1C 0.54 g/dL; HEMOGLOBIN A1C % 5.7 % (4.6-6.2)
== END 2019-05-20 09:51 | disposition home or self-care (01) ==
LOC: LAB 09:50
PROVIDERS: ATTEND Internal Medicine
DX: Z79.899 Other long term (current) drug therapy (principal); M19.012 Primary osteoarthritis, left shoulder
CPT/HCPCS: 36415; 80048; 82607; 83036

== ENCOUNTER 2019-07-02 18:25 | Outpatient (CLI) | payer MEDICARE, OTHER | END 2019-07-02 18:26 | disposition critical access hospital (66) | LOC: EMS 18:25 | PROVIDERS: ATTEND Surgery | DX: R10.9 Unspecified abdominal pain (principal); R11.10 Vomiting, unspecified | CPT/HCPCS: A0425; A0427 ==

== ENCOUNTER 2019-07-02 18:41 | Emergency (ER) | payer MEDICARE, OTHER ==
[2019-07-02] MEDS ORDERED: MORPHINE 10 MG/ML VIAL IVP STA (18:51)
[2019-07-02] MEDS ORDERED: ONDANSETRON 4 MG/2 ML VIAL IVP STA (18:51)
[2019-07-02] MEDS ORDERED: LACTATED RINGERS 1,000 ML IV STA (18:52)
--- NOTE | 2019-07-02 18:55 | ED Physician Documentation ---
History of Present Illness - Stated complaint Stated Complaint: ABD PAIN, VOMITING - Additonal information Additional information: This is an 79-year-old female with extensive past medical history including lung and thyroid cancer s/p lobectomy, esophageal cancer s/p partial gastrectomy, cholecystectomy, coronary artery disease with PCI x 3, most recently around 2012, with no catheterizations or stress tests for years, T2DM on metformin, atrial fibrillation on xarelto, who presents with epigastric discomfort. She began having some pain after eating around 830 this morning. She states the pain worsened throughout the day and she went saw her primary care provider, she had a urinalysis run but she does not have the results of this. She has had some nausea and vomited multiple times the vomit has been nonbloody, nonbilious. Now she has been dry heaving since she has nothing left to throw up. She has not had any diarrhea or blood in her stool. She states that her breathing feels normal to her. She denies pain in her chest. Review of Systems Constitutional: denies: Fever Cardiac: denies: Chest pain / pressure Respiratory: denies: Dyspnea GI: reports: Abdominal Pain, Nausea, Vomiting : denies: Dysuria Skin: denies: Rash Neurologic: reports: Generalized weakness Immunocompromised: denies: Immunocompromised PD PAST MEDICAL HISTORY - Past Medical History Cardiovascular: Hypertension, High cholesterol, Coronary artery disease, [place], Atrial fibrillation Respiratory: Other Endocrine/Autoimmune: Type 2 diabetes GI: GERD, Hiatal hernia, Other : Incontinence HEENT: Chronic vision loss, Other Psych: Depression Musculoskeletal: Osteoarthritis, Fibromyalgia - Past Surgical History Past Surgical History: Yes General: Cholecystectomy, Hiatal hernia repair, Colonoscopy, Other Ortho: Knee replacement, Carpal Tunnel surgery Cardiovascular: Coronary stent HEENT: Tonsil/Adenoidectomy, Other - Present Medications Home Medications: Ambulatory Orders Medication Instructions Recorded Confirmed Folic Acid 1 mg PO DAILY 09/05/14 02/26/19 Isosorbide Mononitrate [Isosorbide 30 mg PO DAILY 09/05/14 02/26/19 Mononitrate ER] Omeprazole [PriLOSEC] 20 mg PO BID 09/05/14 02/26/19 metFORMIN [Glucophage] 1,500 mg PO BID 09/05/14 02/26/19 Rivaroxaban [Xarelto] 20 mg PO DAILY 10/11/14 02/26/19 Atorvastatin [Lipitor] 20 mg PO DAILY 03/25/15 02/26/19 Aspirin [Aspir 81] 1 tab PO DAILY 03/26/15 02/26/19 Fentanyl [Fentanyl 12mcg patch] 75 mcg TD ONCE 03/26/15 02/26/19 Levothyroxine [Synthroid] 100 tab PO DAILY 03/26/15 02/26/19 Metoprolol Tartrate 75 mg PO BID 03/26/15 02/26/19 Nitroglycerin [Nitrostat] 1 tab SQ PRN PRN 09/02/17 02/26/19 Magnesium 250 mg PO DAILY 01/16/18 02/26/19 - Allergies Allergies/Adverse Reactions: Allergies Allergy/AdvReac Type Severity Reaction Status Date / Time No Known Drug Allergies Allergy Verified 07/02/19 18:58 - Social History Does the pt smoke?: No Smoking Status: Never smoker Does the pt drink ETOH?: No Does the pt have substance abuse?: No - Immunizations Immunizations are current?: Yes - POLST Patient has POLST: No PD ED PE NORMAL - Vitals Vital signs reviewed: Yes - General General: Alert and oriented X 3, No acute distress - HEENT HEENT: PERRL - Neck Neck: Supple, no meningeal sign - Cardiac Cardiac: RRR, No murmur - Respiratory Respiratory: No respiratory distress, Clear bilaterally - Abdomen Abdomen: Other (Tenderness palpation in the epigastric region in the left upper quadrant. To lesser extent there is some mild right upper quadrant tenderness. No lower abdominal tenderness. No guarding.) - Derm Derm: Warm and dry - Extremities Extremities: No deformity - Neuro Neuro: Alert and oriented X 3 - Psych Psych: Normal mood, Normal affect Results - Vitals Vitals: Vital Signs - 24 hr 07/02/19 07/02/19 07/02/19 18:52 20:45 20:56 Temperature 37.9 C H Heart Rate 88 91 Respiratory 14 16 Rate Blood Pressure 139/80 H 118/66 O2 Saturation 96 94 07/02/19 07/02/19 22:09 23:16 Temperature 36.3 C L Heart Rate 89 Respiratory 21 Rate Blood Pressure 96/55 L O2 Saturation 92 Oxygen O2 Source Room air Oxygen Flow Rate 2 - EKG (time done) 18:50 Other comments: Other comments (Rate 83,Rhythm sinus, there is a first-degree AV block. There is no ST segment elevation or depression, no abnormal T wave inversions. Borderline left axis deviation.) - Labs Labs: Laboratory Tests 07/02/19 07/02/19 07/02/19 17:15 17:15 17:15 WBC 4.4 L RBC 4.10 L Hgb 12.1 Hct 36.2 L MCV 88.3 MCH 29.5 MCHC 33.4 RDW 14.1 Plt Count 129 L MPV 8.9 Neut # (Auto) 4.0 Lymph # (Auto) 0.2 L [facility] # (Auto) 0.1 Eos # (Auto) 0.0 Baso # (Auto) 0.0 Absolute Nucleated RBC 0.00 Nucleated RBC % 0.0 PT INR APTT Sodium 138 Potassium 3.6 Chloride 105 Carbon Dioxide 25 Anion Gap 8.0 BUN 8 Creatinine 0.3 L Estimated GFR (MDRD) 214 Glucose 101 H Lactic Acid Calcium 8.3 L Total Bilirubin 1.3 H AST 353 H ALT 130 H Alkaline Phosphatase 97 Troponin I High Sens 82.7 H* Total Protein 6.0 L Albumin 3.3 Globulin 2.7 Albumin/Globulin Ratio 1.2 Lipase 23 Urine Color Urine Clarity Urine pH Ur Specific [place] Urine Protein Urine Glucose (UA) Urine Ketones Urine Occult Blood Urine Nitrite Urine Bilirubin Urine Urobilinogen Ur Leukocyte Esterase Ur Microscopic Review Urine Culture Comments 07/02/19 07/02/19 07/02/19 17:15 20:05 20:07 WBC RBC Hgb Hct MCV MCH MCHC RDW Plt Count MPV Neut # (Auto) Lymph # (Auto) [facility] # (Auto) Eos # (Auto) Baso # (Auto) Absolute Nucleated RBC Nucleated RBC % PT 15.4 H INR 1.4 H APTT 33.3 Sodium Potassium Chloride Carbon Dioxide Anion Gap BUN Creatinine Estimated GFR (MDRD) Glucose Lactic Acid 1.6 Calcium Total Bilirubin AST ALT Alkaline Phosphatase Troponin I High Sens Total Protein Albumin Globulin Albumin/Globulin Ratio Lipase Urine Color YELLOW Urine Clarity CLEAR Urine pH 7.0 Ur Specific [place] 1.015 Urine Protein NEGATIVE Urine Glucose (UA) NEGATIVE Urine Ketones NEGATIVE Urine Occult Blood NEGATIVE Urine Nitrite NEGATIVE Urine Bilirubin NEGATIVE Urine Urobilinogen 1 (NORMAL) Ur Leukocyte Esterase NEGATIVE Ur Microscopic Review NOT INDICATED Urine Culture Comments NOT INDICATED 07/02/19 20:26 WBC RBC Hgb Hct MCV MCH MCHC RDW Plt Count MPV Neut # (Auto) Lymph # (Auto) [facility] # (Auto) Eos # (Auto) Baso # (Auto) Absolute Nucleated RBC Nucleated RBC % PT INR APTT Sodium Potassium Chloride Carbon Dioxide Anion Gap BUN Creatinine Estimated GFR (MDRD) Glucose Lactic Acid Calcium Total Bilirubin AST ALT Alkaline Phosphatase Troponin I High Sens 92.4 H* Total Protein Albumin Globulin Albumin/Globulin Ratio Lipase Urine Color Urine Clarity Urine pH Ur Specific [place] Urine Protein Urine Glucose (UA) Urine Ketones Urine Occult Blood Urine Nitrite Urine Bilirubin Urine Urobilinogen Ur Leukocyte Esterase Ur Microscopic Review Urine Culture Comments - Rads (name of study) CT abd/pelvis with contrast Radiology: Other (Intrahepatic and extrahepatic ductal dilatation, more prominent than prior. Periportal edema and edema by the upper common bile ductwhich may be hepatitis or ductal inflammatory changes. No obvious intraluminal filling defect by CT. Small bilateral pleural effusions.) PD MEDICAL DECISION MAKING - ED course Complexity details: considered differential (Cholangitis, choledocholithiasis, pancreatitis, obstruction, gastroenteritis, bowel perforation, gastritis, PTX, ACS) ED course: Patient has abdominal tenderness, and her symptoms appear focused in the right upper quadrant, however given her extensive cardiac history and epigastric pain, EKG was obtained which did not show signs of convincing ischemia or dysrhythmia. She does have a elevated high-sensitivity troponin at 82.7, this is repeated after several hours and had increased somewhat to 92.4. Her EKG continues to show no changes. This may be a troponin leak vs NSTEMI, she was started on heparin after discussion with accepting facility's pharmacist for recommendations (last dose of Xarelto was over 24 hours ago). Labs are notable for a mildly elevated bilirubin of 1.3, AST and ALT elevations, normal alk phos. CT scan of the abdomen and pelvis show increased biliary dilatation. Given these findings combined with her liver enzyme elevations in her symptoms, I am concerned for choledocholithiasis or other biliary obstruction. She has no leukocytosis no fever, no signs of cholangitis at this time. Pain and nausea are well-controlled with one dose of morphine and zofran. She is receiving gentle fluid hydration. I spoke with Dr. Larson of [facility], and discussed the patient's case, She was accepted for transfer. Pt and her family are also in agreement with the plan. She was transferred via ALS. Departure - Departure Disposition: 02 Transfer Acute Care Hosp Clinical Impression: Biliary obstruction Condition: Good Discharge Date/Time: 07/03/19 00:42
[2019-07-02 19:20] LABS: BASOPHILS % (AUTO) 0.2 %; EOSINOPHILS % (AUTO) 0.2 %; HGB - HEMOGLOBIN 12.1 g/dL (12.0-16.0); LYMPHOCYTES # (AUTO) 0.2 10^3/uL (1.5-3.5); LYMPHOCYTES % (AUTO) 5.5 %; MEAN CORPUSCULAR HEMOGLOBIN 29.5 pg (27.0-31.0); MEAN CORPUSCULAR HGB CONC 33.4 g/dL (32.0-36.0); MEAN CORPUSCULAR VOLUME 88.3 fL (81.0-99.0); MEAN PLATELET VOLUME 8.9 fL (7.9-10.8); MONOCYTES # (AUTO) 0.1 10^3/uL (0.0-1.0); MONOCYTES % (AUTO) 1.4 %; NEUTROPHILS % (AUTO) 92.2 %; PLT - PLATELET COUNT 129 10^3/uL (130-450); RED CELL DISTRIBUTION WIDTH 14.1 % (12.0-15.0); WHITE BLOOD COUNT 4.4 x10^3/uL (4.8-10.8)
--- NOTE | 2019-07-02 19:31 | XRAY Report ---
Reason: chest pain Procedure Date: 07/02/2019 Accession Number: [id number] / [id number] Procedure: XR - Chest 1 View X-Ray CPT Code: 66487 Final Report FULL RESULT: EXAM: CHEST RADIOGRAPHY EXAM DATE: 07/02/2019 07:05 PM. CLINICAL HISTORY: Chest pain. COMPARISON: RIBS 2 VIEW RT 11/06/2017 2:45 PM CHEST 2 VIEW 09/02/2017 10:23 AM CHEST ANGIO 09/05/2014 12:27 PM. TECHNIQUE: 1 view. FINDINGS: LUNGS: The lungs are hypoventilatory with compressive changes. Unchanged scarring within the left midlung zone. Otherwise, the aerated portions of the lungs are clear, however the lung bases are poorly evaluated. PLEURA: Changed small right pleural effusion. No clinically significant pneumothorax. MEDIASTINUM: Heart and mediastinal contours are notable for aortic calcification. The cardiac silhouette is normal in size. BONES: No suspicious osseous lesions. IMPRESSION: 1. Expiratory chest x-ray. No acute disease within the limits of this study, however, the lung bases are poorly evaluated and cannot exclude a basilar process. 2. Unchanged small right pleural effusion. RADIA
[2019-07-02] MEDS ORDERED: IOVERSOL 320 100 ML VIAL IVP ONE ×2 (19:48→20:32)
[2019-07-02 19:50] LABS: ALBUMIN 3.3 g/dL (3.2-5.5); ALBUMIN/GLOBULIN RATIO 1.2 (1.0-2.2); BILIRUBIN,TOTAL 1.3 mg/dL (0.2-1.0); CALCIUM 8.3 mg/dL (8.5-10.3); CREATININE 0.3 mg/dL (0.4-1.0)
[2019-07-02 20:24] LABS: BILIRUBIN,URINE NEGATIVE (NEGATIVE); GLUCOSE, URINE (UA) NEGATIVE (NEGATIVE); KETONES,URINE (UA) NEGATIVE (NEGATIVE); LEUKOCYTE ESTERASE, URINE NEGATIVE (NEGATIVE); NITRITE,URINE NEGATIVE (NEGATIVE); OCCULT BLOOD,URINE NEGATIVE (NEGATIVE); PROTEIN,URINE NEGATIVE (NEGATIVE); UROBILINOGEN,URINE 1 (NORMAL) E.U./dL (NORMAL)
[2019-07-02 20:27] LABS: CLARITY,URINE CLEAR (CLEAR)
--- NOTE | 2019-07-02 20:55 | CT Report ---
Reason: upper abdominal pain, vomiting Procedure Date: 07/02/2019 Accession Number: [id number] / [id number] Procedure: CT - Abdomen/Pelvis W CPT Code: Final Report FULL RESULT: EXAM: CT ABDOMEN AND PELVIS EXAM DATE: 07/02/2019 08:27 PM. CLINICAL HISTORY: Upper abdominal pain, vomiting. COMPARISONS: ABDOMEN/PELVIS W/O 11/15/2018 9:38 AM. TECHNIQUE: Routine helical CT imaging was performed through the abdomen and pelvis. IV contrast: Optiray 320; 100 mL. Enteric contrast: No. Reconstructions: Coronal and sagittal. In accordance with CT protocol optimization, one or more of the following dose reduction techniques were utilized for this exam: automated exposure control, adjustment of mA and/or KV based on patient size, or use of iterative reconstructive technique. FINDINGS: Lung Bases: Small bilateral pleural effusions. Bibasilar opacities. Hiatal hernia/gastric pull-up. Heart size normal. Coronary nary artery calcified plaque. Basilar scar/atelectasis. Liver: Mild intrahepatic ductal dilatation. Periportal edema. No hepatic lesions. Patent portal vein. Small volume of perihepatic free fluid. Gallbladder/Bile Ducts: Status post cholecystectomy. Prominent common bile duct measuring up to 12 mm without a filling defect by CT. There is edema along the upper common bile duct. Common bile duct is more prominent compared to 11/15/2018. Spleen: Normal. Pancreas: Pancreatic parenchymal volume loss. Adrenal Glands: Normal. Kidneys: Right renal cyst is seen measuring 19 mm. No hydronephrosis. Left renal parenchymal scarring and volume loss. No ureteral dilatation or ureteral calculi. Peritoneal Cavity/Bowel: Stomach is largely within the posterior mediastinum. No small bowel obstruction or small bowel wall thickening. Small volume of stool in the colon. No diverticulitis. Diverticula are seen in the distal colon. No free air. No enlarged retroperitoneal or mesenteric lymph nodes. The appendix is well visualized and normal. Pelvic Organs: Urinary bladder is mildly distended and unremarkable. Right inguinal hernia noted. No adnexal masses. No pelvic free fluid. No pelvic adenopathy. Calcifications along the margins of the uterus again seen. Vasculature: Vascular calcifications. No aneurysm. Bones: Degenerative changes of the lower thoracic and lumbar spine. Grade 1 anterolisthesis of L5 on S1. Lumbar facet arthropathy. No acute osseous abnormalities. Degenerative changes of both hip joints. Other: Mild subcutaneous edema. IMPRESSION: 1. Normal appendix. 2. Colonic diverticulosis. No diverticulitis. No bowel obstruction. 3. Status post cholecystectomy. Intrahepatic and extrahepatic ductal dilatation which appears more prominent. Periportal edema and edema by the upper common bile duct which may represent changes related to hepatic disease, possibly hepatitis or ductal inflammatory changes, less likely infiltration. Common bile duct appears also more prominent in size compared to the CT from 11/15/2018. Correlation with liver function test. No intraluminal filling defect seen by CT. 4. Small bilateral pleural effusions. Small volume of perihepatic free fluid. RADIA
[2019-07-02] MEDS ORDERED: HEPARIN 25000UNITS/500ML (D5W) 25,000 UNIT/500 ML BAG IV STA ×2 (22:50→23:09)
[2019-07-02 23:02] LABS: INR 1.4 (0.8-1.2); PT - PROTHROMBIN TIME 15.4 secs (9.9-12.6)
[2019-07-02 23:11] LABS: PARTIAL THROMBOPLASTIN TIME 33.3 secs (24.9-33.3)
[2019-07-02 23:17] VITALS: BP 96/55
== END 2019-07-03 00:42 | disposition short-term general hospital (02) ==
LOC: EDUNIT# → ED 18:41
DX: K83.1 Obstruction of bile duct (principal); Z90.49 Acquired absence of other specified parts of digestive tract; R74.8 Abnormal levels of other serum enzymes; I44.0 Atrioventricular block, first degree; I48.91 Unspecified atrial fibrillation; Z79.01 Long term (current) use of anticoagulants; Z79.82 Long term (current) use of aspirin; I10 Essential (primary) hypertension; E11.9 Type 2 diabetes mellitus without complications; Z79.84 Long term (current) use of oral hypoglycemic drugs; Z85.118 Personal history of other malignant neoplasm of bronchus and lung; Z85.850 Personal history of malignant neoplasm of thyroid; Z85.01 Personal history of malignant neoplasm of esophagus
CPT/HCPCS: 36415; 71045; 74177; 80053; 81003; 83605; 83690; 84484; 85025; 85610; 85730; 93005; 96361; 96374; 96375; 99283; 99285; J7120; Q9967; 81001; 87086

== ENCOUNTER 2019-07-03 00:31 | Outpatient (CLI) | payer MEDICARE, OTHER | END 2019-07-03 00:32 | disposition short-term general hospital (02) | LOC: EMS 00:31 | PROVIDERS: ATTEND Surgery | DX: I21.4 Non-ST elevation (NSTEMI) myocardial infarction (principal) | CPT/HCPCS: A0425; A0426 ==

== ENCOUNTER 2019-08-15 08:51 | Emergency (ER) | payer MEDICARE, OTHER ==
[2019-08-15] MEDS ORDERED: METOPROLOL 5 MG/5 ML VIAL IVP STA (09:16)
--- NOTE | 2019-08-15 09:16 | ED Physician Documentation ---
History of Present Illness - Stated complaint Stated Complaint: FAST HEART BEAT - Additonal information Additional information: This is an 79-year-old female with a history of hypertension, atrial fibrillation on Xarelto, CAD status post drug-eluting stent in 2013, and STEMI in 2016, hypertension, hyperlipidemia, history of right lung adenocarcinoma status post lobectomy in 2014, esophageal cancer status post esophagectomy in 2014, and papillary thyroid cancer status post thyroidectomy in 2015, who is sent in from cardiac rehab with elevated heart rate. Patient forgot to take her medications last night, she typically takes 100 mg of metoprolol nightly. This morning she went to her cardiac rehab and was feeling at her baseline, which is a little bit of fatigue and dyspnea, but no worse than usual and no private branch exchange service adviser the last several weeks. When she was put on the monitor in cardiac rehab she was found to be in a narrow complex irregular tachycardia at a rate of around 165. She was brought to the emergency department. She states that she feels fine and if they had not checked her heart rate she would not of known that her heart was going so quickly. She denies chest pain, abdominal pain, vomiting, leg swelling. She did take her morning medications, but does not take a rate controlling medication in the morning. Review of Systems Constitutional: denies: Fever Cardiac: denies: Chest pain / pressure Respiratory: denies: Cough GI: denies: Abdominal Pain : denies: Dysuria Skin: denies: Rash Immunocompromised: denies: Immunocompromised PD PAST MEDICAL HISTORY - Past Medical History Cardiovascular: Hypertension, High cholesterol, Coronary artery disease, [place], Atrial fibrillation Respiratory: Other Endocrine/Autoimmune: Type 2 diabetes GI: GERD, Hiatal hernia, Other : Incontinence HEENT: Chronic vision loss, Other Psych: Depression Musculoskeletal: Osteoarthritis, Fibromyalgia - Past Surgical History Past Surgical History: Yes General: Cholecystectomy, Hiatal hernia repair, Colonoscopy, Other Ortho: Knee replacement, Carpal Tunnel surgery Cardiovascular: Coronary stent HEENT: Tonsil/Adenoidectomy, Other - Present Medications Home Medications: Ambulatory Orders Medication Instructions Recorded Confirmed Folic Acid 1 mg PO DAILY 09/05/14 02/26/19 Isosorbide Mononitrate [Isosorbide 30 mg PO DAILY 09/05/14 02/26/19 Mononitrate ER] Omeprazole [PriLOSEC] 20 mg PO BID 09/05/14 02/26/19 metFORMIN [Glucophage] 1,500 mg PO BID 09/05/14 02/26/19 Rivaroxaban [Xarelto] 20 mg PO DAILY 10/11/14 02/26/19 Atorvastatin [Lipitor] 20 mg PO DAILY 03/25/15 02/26/19 Aspirin [Aspir 81] 1 tab PO DAILY 03/26/15 02/26/19 Fentanyl [Fentanyl 12mcg patch] 75 mcg TD ONCE 03/26/15 02/26/19 Levothyroxine [Synthroid] 100 tab PO DAILY 03/26/15 02/26/19 Metoprolol Tartrate 75 mg PO BID 03/26/15 02/26/19 Nitroglycerin [Nitrostat] 1 tab SQ PRN PRN 09/02/17 02/26/19 Magnesium 250 mg PO DAILY 01/16/18 02/26/19 - Allergies Allergies/Adverse Reactions: Allergies Allergy/AdvReac Type Severity Reaction Status Date / Time No Known Drug Allergies Allergy Verified 08/15/19 08:55 - Social History Does the pt smoke?: No Smoking Status: Never smoker Does the pt drink ETOH?: No Does the pt have substance abuse?: No - Immunizations Immunizations are current?: Yes - POLST Patient has POLST: No PD ED PE NORMAL - General General: Alert and oriented X 3, No acute distress - HEENT HEENT: Atraumatic - Neck Neck: Supple, no meningeal sign - Cardiac Cardiac: Other (Irregularly irregular rhythm, tachycardiaAt 110 on my examination) - Respiratory Respiratory: No respiratory distress, Clear bilaterally - Abdomen Abdomen: Normal bowel sounds, Non tender - Extremities Extremities: No deformity - Neuro Neuro: Alert and oriented X 3 Results - Vitals Vitals: Vital Signs - 24 hr 08/15/19 08/15/19 08/15/19 08:56 09:31 10:01 Temperature 36.4 C L Heart Rate 107 H 101 H 90 Respiratory 15 17 15 Rate Blood Pressure 116/79 90/65 103/72 O2 Saturation 95 95 98 08/15/19 08/15/19 08/15/19 10:30 11:30 13:00 Temperature 36.8 C Heart Rate 91 81 88 Respiratory 15 17 18 Rate Blood Pressure 100/75 106/74 97/64 O2 Saturation 97 100 99 08/15/19 08/15/19 13:16 13:30 Temperature Heart Rate 81 81 Respiratory 22 18 Rate Blood Pressure 97/68 98/67 O2 Saturation 99 99 Oxygen O2 Source Room air - EKG (time done) 8:58 Other comments: Other comments (Rate 108, rhythm atrial fibrillation, there is no ST segment elevation. There were T wave inversions in the anterior leads and T wave flattening in the lateral leads, the anterior T wave changes appear new from 07/02/2019, otherwise the EKG is similar.) 12:07 Other comments: Other comments (Rate 80, rhythm likely atrial fibrillation - slightly irregular and no p waves seen. There is no ST segment elevation or depression. There are T wave inversions in the anterior and lateral leads, similar to prior EKG from today.) - Labs Labs: Laboratory Tests 08/15/19 08/15/19 08/15/19 09:05 09:05 09:05 WBC RBC Hgb Hct MCV MCH MCHC RDW Plt Count MPV Neut # (Auto) Lymph # (Auto) [place] # (Auto) Eos # (Auto) Baso # (Auto) Absolute Nucleated RBC Nucleated RBC % Sodium 136 Potassium 4.1 Chloride 101 Carbon Dioxide 24 Anion Gap 11.0 BUN 12 Creatinine 0.8 Estimated GFR (MDRD) 69 L Glucose 158 H Calcium 8.8 Total Bilirubin 0.8 AST 27 ALT 20 Alkaline Phosphatase 56 Troponin I High Sens 16.3 H* B-Natriuretic Peptide 61 Total Protein 6.8 Albumin 3.7 Globulin 3.1 Albumin/Globulin Ratio 1.2 Lipase 31 08/15/19 08/15/19 09:18 12:33 WBC 4.2 L RBC 4.47 Hgb 13.2 Hct 40.2 MCV 89.9 MCH 29.5 MCHC 32.8 RDW 15.6 H Plt Count 185 MPV 9.5 Neut # (Auto) 2.1 Lymph # (Auto) 1.8 [place] # (Auto) 0.2 Eos # (Auto) 0.1 Baso # (Auto) 0.0 Absolute Nucleated RBC 0.00 Nucleated RBC % 0.0 Sodium Potassium Chloride Carbon Dioxide Anion Gap BUN Creatinine Estimated GFR (MDRD) Glucose Calcium Total Bilirubin AST ALT Alkaline Phosphatase Troponin I High Sens 19.7 H* B-Natriuretic Peptide Total Protein Albumin Globulin Albumin/Globulin Ratio Lipase PD MEDICAL DECISION MAKING - ED course Complexity details: considered differential (Dysrhythmia, electrolyte abnormality, ACS, medication side effect) ED course: Patient presents with asymptomatic tachycardia in the setting of known atrial fibrillation and missing her metoprolol last night. She was completely asymptomatic but was found to be tachycardic in cardiac rehab so was sent here. Her EKG shows atrial fibrillation there are some T wave inversions in the anteri or leads which appear more prominent than in her past EKG, however she has had a known [place] in the interim, which may have been responsible for these changes. She remains completely asymptomatic during her stay here. After receiving her metoprolol here her heart rate has been in normal range in the 80s. Her missed dose appears to be the culprit for her A-fib with RVR. Her chest x-ray is unremarkable, CBC unremarkable, and her HS troponin is slightly elevated at 16.3, but this is greatly improved from her past value of 92.4. I did obtain a 3-hour delta troponin as well as a repeat EKG which are essentially unchanged. On repeat evaluation patient is very eager to go home, she does not want stay in the hospital and she remains asymptomatic. She has follow-up with a steam pipe fitter within the next couple days. I reviewed that she should take her medications without missing doses, and if she has any chest pain shortness of breath or other symptoms she needs to return to the emergency depa rtment immediately. Patient agrees and was discharged home. Departure - Departure Disposition: 01 Home, Self Care Clinical Impression: Rapid heart rate Condition: Good Instructions: Atrial Fibrillation Dc Follow-Up: Krysta Mcknight MD [Primary Care Provider] - Within 1 week Comments: Your heart rate has come down nicely with the metoprolol. You may continue your normal dosing of this medication tonight. Please ensure that you do not miss doses of your medications. Follow-up with your steam pipe fitter and primary care provider soon as possible. Return to the emergency department if you develop a ny chest pain, shortness of breath, or other concerning symptoms Discharge Date/Time: 08/15/19 13:39
[2019-08-15] MEDS ORDERED: METOPROLOL TARTRATE 50 MG TABLET PO STA (09:17)
[2019-08-15 09:27] LABS: BASOPHILS % (AUTO) 0.2 %; EOSINOPHILS # (AUTO) 0.1 10^3/uL (0.0-0.7); EOSINOPHILS % (AUTO) 1.2 %; HGB - HEMOGLOBIN 13.2 g/dL (12.0-16.0); LYMPHOCYTES # (AUTO) 1.8 10^3/uL (1.5-3.5); MEAN CORPUSCULAR HEMOGLOBIN 29.5 pg (27.0-31.0); MEAN CORPUSCULAR HGB CONC 32.8 g/dL (32.0-36.0); MEAN CORPUSCULAR VOLUME 89.9 fL (81.0-99.0); MEAN PLATELET VOLUME 9.5 fL (7.9-10.8); MONOCYTES # (AUTO) 0.2 10^3/uL (0.0-1.0); MONOCYTES % (AUTO) 4.1 %; NEUTROPHILS # (AUTO) 2.1 10^3/uL (1.5-6.6); NEUTROPHILS % (AUTO) 51.3 %; PLT - PLATELET COUNT 185 10^3/uL (130-450); RED BLOOD COUNT 4.47 10^6/uL (4.20-5.40); RED CELL DISTRIBUTION WIDTH 15.6 % (12.0-15.0); WHITE BLOOD COUNT 4.2 x10^3/uL (4.8-10.8)
[2019-08-15 09:39] LABS: ALBUMIN 3.7 g/dL (3.2-5.5); ALBUMIN/GLOBULIN RATIO 1.2 (1.0-2.2); BILIRUBIN,TOTAL 0.8 mg/dL (0.2-1.0); CALCIUM 8.8 mg/dL (8.5-10.3); CREATININE 0.8 mg/dL (0.4-1.0); TOTAL PROTEIN 6.8 g/dL (6.7-8.2)
--- NOTE | 2019-08-15 09:51 | XRAY Report ---
Reason: Tachycardia, dyspnea Procedure Date: 08/15/2019 Accession Number: [id number] / [id number] Procedure: XR - Chest 1 View X-Ray CPT Code: 92918 Final Report FULL RESULT: EXAM: CHEST RADIOGRAPHY EXAM DATE: 08/15/2019 09:29 AM. CLINICAL HISTORY: Tachycardia, dyspnea. COMPARISON: CHEST 1 VIEW 07/02/2019 6:49 PM RIBS 2 VIEW RT 11/06/2017 2:45 PM CHEST 2 VIEW 09/02/2017 10:23 AM. TECHNIQUE: 1 view. FINDINGS: Lungs/Pleura: The blunted right lateral costophrenic angle is again noted, without significant interval change. No new focal opacities evident. No pleural effusion. No pneumothorax. Mediastinum: Within exam limitations, the cardiomediastinal contour is normal. Other: Moderate to severe degenerative arthritis in the bilateral shoulders again noted, similar to prior exam. IMPRESSION: Negative for acute cardiopulmonary process or cardiomegaly. RADIA
[2019-08-15 13:40] VITALS: BP 98/67
== END 2019-08-15 13:39 | disposition home or self-care (01) ==
LOC: ED 08:51
DX: I48.91 Unspecified atrial fibrillation (principal); Z79.01 Long term (current) use of anticoagulants; Z91.14 Patient's other noncompliance with medication regimen; I10 Essential (primary) hypertension; I25.10 Atherosclerotic heart disease of native coronary artery without angina pectoris; Z95.5 Presence of coronary angioplasty implant and graft; I25.2 Old myocardial infarction; E78.5 Hyperlipidemia, unspecified; E11.9 Type 2 diabetes mellitus without complications; Z79.84 Long term (current) use of oral hypoglycemic drugs; Z79.82 Long term (current) use of aspirin; Z85.850 Personal history of malignant neoplasm of thyroid; Z85.118 Personal history of other malignant neoplasm of bronchus and lung; Z85.01 Personal history of malignant neoplasm of esophagus
CPT/HCPCS: 36415; 71045; 80053; 83690; 83880; 84484; 85025; 93005; 99284; A9270

== ENCOUNTER 2019-09-15 07:42 | Outpatient (CLI) | payer MEDICARE, OTHER | END 2019-09-15 07:43 | disposition critical access hospital (66) | LOC: EMS 07:42 | PROVIDERS: ATTEND Surgery | DX: R25.1 Tremor, unspecified (principal); R11.2 Nausea with vomiting, unspecified | CPT/HCPCS: A0425; A0427 ==

== ENCOUNTER 2019-09-15 07:59 | Emergency (ER) | payer MEDICARE, OTHER ==
[2019-09-15] MEDS ORDERED: SODIUM CHLORIDE 0.9% 1,000 ML IV ONE (08:12)
--- NOTE | 2019-09-15 08:14 | ED Physician Documentation ---
History of Present Illness - Stated complaint Stated Complaint: SHAKY - Chief complaint Chief Complaint: Fever - Additonal information Additional information: This is an 79-year-old female with a history of lung cancer status post resection, esophageal cancer status post resection and reconstruction with partial gastrectomy, CAD S/P PCI most recently around 2012, thyroidectomy, who presents with shakiness, shortness of breath, and vomiting. Patient states last week she has felt more short of breath than usual this is worse with exertion gets better when she rests. She denies cough. She woke up this morning after sleeping poorly throughout the night, and felt that she was shaking uncontrollably with chattering of her teeth, she did feel febrile. She also was nauseated. She denies chest pain. EMS arrived and found her to be febrile to 102 F. She received Zofran in route. She denies pain or burning with urination she endorses frequency but states that this is baseline for her. She denies abdominal pain. She previously presented here sevral months ago with abdominal pain and was found to have liver enzyme elevations, and signs of common bile duct obstruction, she was transferred to [facility], where she had an ERCP and what sounds like a sphincterotomy. She again denies any abdominal pain today. Review of Systems Constitutional: reports: Fever, Chills Nose: denies: Rhinorrhea / runny nose Cardiac: denies: Chest pain / pressure Respiratory: reports: Dyspnea GI: reports: Nausea. denies: Abdominal Pain : reports: Frequency. denies: Dysuria Skin: denies: Rash Neurologic: reports: Generalized weakness PD PAST MEDICAL HISTORY - Past Medical History Cardiovascular: Hypertension, High cholesterol, Coronary artery disease, OR, Atrial fibrillation Respiratory: Other Endocrine/Autoimmune: Type 2 diabetes GI: GERD, Hiatal hernia, Other : Incontinence HEENT: Chronic vision loss, Other Psych: Depression Musculoskeletal: Osteoarthritis, Fibromyalgia - Past Surgical History Past Surgical History: Yes General: Cholecystectomy, Hiatal hernia repair, Colonoscopy, Other Ortho: Knee replacement, Carpal Tunnel surgery Cardiovascular: Coronary stent HEENT: Tonsil/Adenoidectomy, Other - Present Medications Home Medications: Ambulatory Orders Medication Instructions Recorded Confirmed Folic Acid 1 mg PO DAILY 09/05/14 02/26/19 Isosorbide Mononitrate [Isosorbide 30 mg PO DAILY 09/05/14 02/26/19 Mononitrate ER] Omeprazole [PriLOSEC] 20 mg PO BID 09/05/14 02/26/19 metFORMIN [Glucophage] 1,500 mg PO BID 09/05/14 02/26/19 Rivaroxaban [Xarelto] 20 mg PO DAILY 10/11/14 02/26/19 Atorvastatin [Lipitor] 20 mg PO DAILY 03/25/15 02/26/19 Aspirin [Aspir 81] 1 tab PO DAILY 03/26/15 02/26/19 Fentanyl [Fentanyl 12mcg patch] 75 mcg TD ONCE 03/26/15 02/26/19 Levothyroxine [Synthroid] 100 tab PO DAILY 03/26/15 02/26/19 Metoprolol Tartrate 75 mg PO BID 03/26/15 02/26/19 Nitroglycerin [Nitrostat] 1 tab SQ PRN PRN 09/02/17 02/26/19 Magnesium 250 mg PO DAILY 01/16/18 02/26/19 - Allergies Allergies/Adverse Reactions: Allergies Allergy/AdvReac Type Severity Reaction Status Date / Time No Known Drug Allergies Allergy Verified 09/15/19 08:09 - Social History Does the pt smoke?: No Smoking Status: Never smoker Does the pt drink ETOH?: No Does the pt have substance abuse?: No - Immunizations Immunizations are current?: Yes - POLST Patient has POLST: No PD ED PE NORMAL - Vitals Vital signs reviewed: Yes - General General: Alert and oriented X 3, No acute distress - Neck Neck: Supple, no meningeal sign - Cardiac Cardiac: No murmur, Other (Irregularly irregular rhythm, tachycardic rate) - Respiratory Respiratory: Clear bilaterally - Abdomen Abdomen: Normal bowel sounds, Soft, Non tender, Non distended - Derm Derm: Warm and dry - Extremities Extremities: No deformity - Neuro Neuro: Alert and oriented X 3, No motor deficit, No sensory deficit, Normal speech - Psych Psych: Normal mood, Normal affect Results - Vitals Vitals: Vital Signs - 24 hr 09/15/19 09/15/19 09/15/19 15:29 15:43 15:53 Temperature Heart Rate 97 101 H 92 Respiratory 28 H 19 28 H Rate Blood Pressure 73/57 L 66/43 L 84/58 L O2 Saturation 97 95 99 09/15/19 09/15/19 09/15/19 16:07 16:44 17:21 Temperature 37.1 C Heart Rate 97 101 H 98 Respiratory 23 27 H 27 H Rate Blood Pressure 92/62 95/55 L 77/49 L O2 Saturation 98 100 97 09/15/19 09/15/19 09/15/19 17:30 17:45 18:11 Temperature Heart Rate 101 H 107 H 91 Respiratory 27 H 19 24 Rate Blood Pressure 95/69 94/69 95/68 O2 Saturation 97 98 99 09/15/19 18:50 Temperature 38 C H Heart Rate 94 Respiratory 24 Rate Blood Pressure 107/58 L O2 Saturation 98 Oxygen O2 Source Room air - EKG (time done) 8:26 Other comments: Other comments (Rate 130, rhythm atrial fibrillation with rapid ventricular response, there is borderline left axis deviation. There is some T wave inversions in the anterior leads probably rate related repolarization changes.) - Labs Labs: Microbiology 09/15/19 09:36 Blood Culture - Preliminary Blood - Right Hand 09/15/19 08:38 Blood Culture - Preliminary Blood 09/15/19 15:04 Occult Blood - Final Stool Laboratory Tests 09/15/19 09/15/19 09/15/19 08:15 08:38 08:38 WBC 3.4 L RBC 4.11 L Hgb 12.4 Hct 37.9 MCV 92.2 MCH 30.2 MCHC 32.7 RDW 16.8 H Plt Count 184 MPV 8.8 Neut # (Auto) Not Reportable Lymph # (Auto) Not Reportable [place] # (Auto) Not Reportable Eos # (Auto) Not Reportable Baso # (Auto) Not Reportable Absolute Nucleated RBC Not Reportable Total Counted 100 Band Neuts % (Manual) 0 Abnorm Lymph % (Manual) 0 Nucleated RBC % Not Reportable Neutrophils # (Manual) 2.9 Lymphocytes # (Manual) 0.4 L Monocytes # (Manual) 0.0 Eosinophils # (Manual) 0.0 Basophils # (Manual) 0.0 Differential Comment MANUAL DIFFERENTIAL Platelet Estimate NORMAL (130-450,000) Platelet Morphology NORMAL APPEARANCE RBC Morph Micro Appear NORMAL APPEARANCE PT INR Sodium 140 Potassium 3.8 Chloride 101 Carbon Dioxide 24 Anion Gap 15.0 H BUN 11 Creatinine 0.7 Estimated GFR (MDRD) 80 L Glucose 118 H Lactic Acid Calcium 8.4 L Total Bilirubin 0.9 AST 307 H ALT 116 H Alkaline Phosphatase 92 Troponin I High Sens B-Natriuretic Peptide Total Protein 6.4 L Albumin 3.5 Globulin 2.9 Albumin/Globulin Ratio 1.2 Free T4 Urine Color YELLOW Urine Clarity CLEAR Urine pH 7.5 Ur Specific [place] 1.020 Urine Protein NEGATIVE Urine Glucose (UA) NEGATIVE Urine Ketones NEGATIVE Urine Occult Blood NEGATIVE Urine Nitrite NEGATIVE Urine Bilirubin NEGATIVE Urine Urobilinogen 1 (NORMAL) Ur Leukocyte Esterase NEGATIVE Urine RBC 0-5 Urine WBC 0-3 Ur Squamous Epith Cells MOD Squamous H Urine Bacteria Rare Urine Culture Comments NOT INDICATED Influenza A (Rapid) Influenza B (Rapid) 09/15/19 09/15/19 09/15/19 08:38 08:38 08:38 WBC RBC Hgb Hct MCV MCH MCHC RDW Plt Count MPV Neut # (Auto) Lymph # (Auto) [place] # (Auto) Eos # (Auto) Baso # (Auto) Absolute Nucleated RBC Total Counted Band Neuts % (Manual) Abnorm Lymph % (Manual) Nucleated RBC % Neutrophils # (Manual) Lymphocytes # (Manual) Monocytes # (Manual) Eosinophils # (Manual) Basophils # (Manual) Differential Comment Platelet Estimate Platelet Morphology RBC Morph Micro Appear PT INR Sodium Potassium Chloride Carbon Dioxide Anion Gap BUN Creatinine Estimated GFR (MDRD) Glucose Lactic Acid 2.7 H Calcium Total Bilirubin AST ALT Alkaline Phosphatase Troponin I High Sens 14.6 B-Natriuretic Peptide 55 Total Protein Albumin Globulin Albumin/Globulin Ratio Free T4 Urine Color Urine Clarity Urine pH Ur Specific [place] Urine Protein Urine Glucose (UA) Urine Ketones Urine Occult Blood Urine Nitrite Urine Bilirubin Urine Urobilinogen Ur Leukocyte Esterase Urine RBC Urine WBC Ur Squamous Epith Cells Urine Bacteria Urine Culture Comments Influenza A (Rapid) Influenza B (Rapid) 09/15/19 09/15/19 09/15/19 08:38 12:05 13:55 WBC 8.9 RBC 3.32 L Hgb 9.8 L Hct 30.4 L MCV 91.6 MCH 29.5 MCHC 32.2 RDW 16.6 H Plt Count 155 MPV 9.0 Neut # (Auto) Lymph # (Auto) [place] # (Auto) Eos # (Auto) Baso # (Auto) Absolute Nucleated RBC Total Counted Band Neuts % (Manual) Abnorm Lymph % (Manual) Nucleated RBC % Neutrophils # (Manual) Lymphocytes # (Manual) Monocytes # (Manual) Eosinophils # (Manual) Basophils # (Manual) Differential Comment Platelet Estimate Platelet Morphology RBC Morph Micro Appear PT INR Sodium Potassium Chloride Carbon Dioxide Anion Gap BUN Creatinine Estimated GFR (MDRD) Glucose Lactic Acid 1.9 Calcium Total Bilirubin AST ALT Alkaline Phosphatase Troponin I High Sens B-Natriuretic Peptide Total Protein Albumin Globulin Albumin/Globulin Ratio Free T4 1.11 Urine Color Urine Clarity Urine pH Ur Specific [place] Urine Protein Urine Glucose (UA) Urine Ketones Urine Occult Blood Urine Nitrite Urine Bilirubin Urine Urobilinogen Ur Leukocyte Esterase Urine RBC Urine WBC Ur Squamous Epith Cells Urine Bacteria Urine Culture Comments Influenza A (Rapid) Influenza B (Rapid) 09/15/19 09/15/19 09/15/19 13:55 13:55 16:42 WBC 16.5 H RBC 3.45 L Hgb 10.5 L Hct 31.5 L MCV 91.3 MCH 30.4 MCHC 33.3 RDW 16.8 H Plt Count 187 MPV 8.9 Neut # (Auto) 15.2 H Lymph # (Auto) 0.6 L [place] # (Auto) 0.4 Eos # (Auto) 0.2 Baso # (Auto) 0.1 Absolute Nucleated RBC 0.00 Total Counted Band Neuts % (Manual) Abnorm Lymph % (Manual) Nucleated RBC % 0.0 Neutrophils # (Manual) Lymphocytes # (Manual) Monocytes # (Manual) Eosinophils # (Manual) Basophils # (Manual) Differential Comment Platelet Estimate Platelet Morphology RBC Morph Micro Appear PT INR Sodium 137 Potassium 3.8 Chloride 105 Carbon Dioxide 22 Anion Gap 10.0 BUN 12 Creatinine 0.7 Estimated GFR (MDRD) 80 L Glucose 99 Lactic Acid 1.7 Calcium 7.3 L Total Bilirubin 0.9 AST 549 H ALT 208 H Alkaline Phosphatase 70 Troponin I High Sens B-Natriuretic Peptide Total Protein 4.8 L Albumin 2.5 L Globulin 2.3 Albumin/Globulin Ratio 1.1 Free T4 Urine Color Urine Clarity Urine pH Ur Specific [place] Urine Protein Urine Glucose (UA) Urine Ketones Urine Occult Blood Urine Nitrite Urine Bilirubin Urine Urobilinogen Ur Leukocyte Esterase Urine RBC Urine WBC Ur Squamous Epith Cells Urine Bacteria Urine Culture Comments Influenza A (Rapid) Influenza B (Rapid) 09/15/19 09/15/19 16:42 17:12 WBC RBC Hgb Hct MCV MCH MCHC RDW Plt Count MPV Neut # (Auto) Lymph # (Auto) [place] # (Auto) Eos # (Auto) Baso # (Auto) Absolute Nucleated RBC Total Counted Band Neuts % (Manual) Abnorm Lymph % (Manual) Nucleated RBC % Neutrophils # (Manual) Lymphocytes # (Manual) Monocytes # (Manual) Eosinophils # (Manual) Basophils # (Manual) Differential Comment Platelet Estimate Platelet Morphology RBC Morph Micro Appear PT 22.9 H INR 2.1 H Sodium Potassium Chloride Carbon Dioxide Anion Gap BUN Creatinine Estimated GFR (MDRD) Glucose Lactic Acid Calcium Total Bilirubin AST ALT Alkaline Phosphatase Troponin I High Sens B-Natriuretic Peptide Total Protein Albumin Globulin Albumin/Globulin Ratio Free T4 Urine Color Urine Clarity Urine pH Ur Specific [place] Urine Protein Urine Glucose (UA) Urine Ketones Urine Occult Blood Urine Nitrite Urine Bilirubin Urine Urobilinogen Ur Leukocyte Esterase Urine RBC Urine WBC Ur Squamous Epith Cells Urine Bacteria Urine Culture Comments Influenza A (Rapid) Negative Influenza B (Rapid) Negative - Rads (name of study) CXR Radiology: Other (Small bilateral effusions, no consolidation. Hiatal hernia) CT abd/pelvis Radiology: Other (Mild intra and extra hepatic ductal dilatation, similar to previous CT. Other chronic findings) CXR post line Radiology: Other (Central line catheter in the high right atrium) Procedures - Central Line Central Line Preparation: Consent Obtained, Time out completed, Ultrasound used, Sterile prep and drape Central line location: Right IJ Central line type: Triple lumen Central line aftercare: Chlorhexidine disc placed, Secured, Placement confirmed, No pneumothorax, No complications, Pt tolerated well, Other (Placement slightly deep on CXR, so line retracted 2 cm and re-secured using sterile technique. Pt has slight oozing from site, controlled with direct pressure.) PD MEDICAL DECISION MAKING - ED course Complexity details: considered differential (Sepsis, septic shock, bacteremia, biliary obstruction, pancreatitis, PNA, HF, ACS, malignancy) ED course: On arrival patient is tachycardic, she is in atrial fibrillation with RVR, her blood pressure is normal, she is febrile to 38.6. She is given Tylenol, labs are drawn, she was placed on the monitor. Her labs were initially notable for a leukopenia 3.4 which is about baseline for the patient. Her hemoglobin is normal. Her CMP shows AST and ALT elevations with a normal bilirubin. Her lactic acid is also elevated at 2.7. She has an anion gap though her CO2 is normal at 24. Her urine is negative, her chest x-ray does not show signs of pneumonia, her influenza swab is negative. She does not have any abdominal tenderness but given her liver enzyme elevations and unclear source for infection, CT of abdomen pelvis was obtained which shows persistent dilation of her common bile duct at 13 mm, similar to appearance on the previous CT. She had some diverticulosis as well but no diverticulitis. Her gallbladder is surgically absent. Repeat labs show a downtrending hemoglobin to 9.8, I did perform a guaiac study on her and it was positive, though she has had no reilly bleeding. No bowel movements while she has been here. Another repeat CBC a few hours later shows a stable hemoglobin of 10.5. Unclear if the initial drop was somewhat due to dilution, though I have been judicious with fluids given her heart failure. She would not tolerate a 30cc/kg bolus with her heart conditions. Her liver enzymes did uptrend from 307 to 549 for the AST, and 116 to to wait for the ALT. I spoke with the GI team at [facility] and they reviewed her records, she had an ERCP and sphicter of oddi dilation but did not have signs of CBD obstruction. She has no abdominal pain at this time so bilairy pathology is unclear as a cause of her symptoms. This may be early shock liver/ related to slight hypoperfusion. SHe does take tylenol but no overdoses by history. Her lactic acid has normalized at 1.7. Her blood pressure began downtrending and she had multiple blood pressures in the 60s systolic, so a central line was placed into her right IJ, and then norepinephrine was started with good response. The chest x-ray did show that the placement was a bit deep, I retracted the central line 3 cm using sterile technique and it was resecured. She had some mild oozing from the site, but this was controlled with direct pressure. She is on Eliquis and Plavix, she had not taken her Eliquis today and given her potential GI bleeding we held off on giving her home medication here. Her heart rate has normalized, and her blood pressure on the norepinephrine is now maintaining maps in the 70s I spoke with our hospitalist, for admission to the ICU, she felt the patient needed care cannot provide here including potential GI, infectious disease. I think reasonable, I called to [facility], they do not have any ICU beds. I called to [facility], and spoke with Dr. Fernandez of the ICU, accepted the patient for transfer. Patient has been stable on a norepinephrine drip, with stable vital signs, and appears appropriate for ACLS ground transfer. However as transferred being arranged in the ambulance in fact was arriving, I was alerted that the biomedical equipment tech for the ambulance system wanted the patient flown. I spoke with Dr. Zavala personally, and explained the situation the patient has been stable in the emergency department on the norepinephrine drip, her labs have also been stable she does not show signs of active hemorrhage, her hemoglobin is been stable between the most recent draws, and in my judgement is stable for ground ACLS, however he continues to feel that she cannot be transferred by ground, needs air transfer. I did explain that this will cause further delay in her care as we h ave a ground ambulance ready at this time, he understands this but continues to refuse ground transfer. Given that it is not an option of transfer by ground, we will transfer via air. Patient is in agreement the plan Departure - Departure Disposition: 02 Transfer Acute Care Hosp Clinical Impression: Septic shock Discharge Date/Time: 09/15/19 18:58
[2019-09-15 08:24] LABS: BILIRUBIN,URINE NEGATIVE (NEGATIVE); GLUCOSE, URINE (UA) NEGATIVE (NEGATIVE); KETONES,URINE (UA) NEGATIVE (NEGATIVE); LEUKOCYTE ESTERASE, URINE NEGATIVE (NEGATIVE); NITRITE,URINE NEGATIVE (NEGATIVE); OCCULT BLOOD,URINE NEGATIVE (NEGATIVE); PH,URINE 7.5 PH (5.0-7.5); PROTEIN,URINE NEGATIVE (NEGATIVE); UROBILINOGEN,URINE 1 (NORMAL) E.U./dL (NORMAL)
[2019-09-15 08:25] LABS: CLARITY,URINE CLEAR (CLEAR)
[2019-09-15 08:27] LABS: BACTERIA,URINE Rare /HPF (None Seen); RBC,URINE 0-5 /HPF (0-5); SQUAMOUS EPITHELIAL CELL,UR MOD Squamous (<= Few)
--- NOTE | 2019-09-15 08:36 | XRAY Report ---
Reason: Shortness of breath, fever Procedure Date: 09/15/2019 Accession Number: [id number] / [id number] Procedure: XR - Chest 1 View X-Ray CPT Code: 98430 Final Report FULL RESULT: EXAM: CHEST RADIOGRAPHY EXAM DATE: 09/15/2019 08:26 AM. CLINICAL HISTORY: Shortness of breath, fever. COMPARISON: CHEST 1 VIEW 08/15/2019 9:13 AM ABDOMEN/PELVIS W/ 07/02/2019 8:17 PM CHEST 1 VIEW 07/02/2019 6:49 PM. TECHNIQUE: 1 view. FINDINGS: Lungs/Pleura: Small bilateral pleural fluid or blunting of the costophrenic angles. Decreased lung volume. Negative for consolidation. Mediastinum: Heart size is normal. Other: Large sliding hiatal hernia. IMPRESSION: 1. Negative for active cardiopulmonary process. 2. Large sliding hiatal hernia. 3. Small bilateral pleural fluid versus pleural fibrosis. RADIA
[2019-09-15] MEDS ORDERED: ACETAMINOPHEN 325 MG TABLET PO STA (08:44)
[2019-09-15 08:51] LABS: BASOPHILS % (AUTO) 0.3 %; EOSINOPHILS % (AUTO) 0.3 %; HGB - HEMOGLOBIN 12.4 g/dL (12.0-16.0); LYMPHOCYTES % (AUTO) 9.2 %; MEAN CORPUSCULAR HEMOGLOBIN 30.2 pg (27.0-31.0); MEAN CORPUSCULAR HGB CONC 32.7 g/dL (32.0-36.0); MEAN CORPUSCULAR VOLUME 92.2 fL (81.0-99.0); MEAN PLATELET VOLUME 8.8 fL (7.9-10.8); MONOCYTES % (AUTO) 0.6 %; NEUTROPHILS % (AUTO) 89.3 %; PLT - PLATELET COUNT 184 10^3/uL (130-450); RED BLOOD COUNT 4.11 10^6/uL (4.20-5.40); RED CELL DISTRIBUTION WIDTH 16.8 % (12.0-15.0); WHITE BLOOD COUNT 3.4 x10^3/uL (4.8-10.8)
[2019-09-15 09:00] LABS: ALBUMIN 3.5 g/dL (3.2-5.5); ALBUMIN/GLOBULIN RATIO 1.2 (1.0-2.2); BILIRUBIN,TOTAL 0.9 mg/dL (0.2-1.0); CALCIUM 8.4 mg/dL (8.5-10.3); CREATININE 0.7 mg/dL (0.4-1.0); TOTAL PROTEIN 6.4 g/dL (6.7-8.2)
[2019-09-15 09:07] LABS: ABNORMAL LYMPHS % (MANUAL) 0 %; BAND NEUTROPHILS % (MANUAL) 0 %
[2019-09-15 09:39] LABS: LYMPHOCYTES # (MANUAL) 0.4 10^3/uL (1.5-3.5); LYMPHOCYTES % (MANUAL) 13 %
[2019-09-15 09:40] LABS: DIFFERENTIAL COMMENT MANUAL DIFFERENTIAL; PLATELET ESTIMATE, MANUAL NORMAL (130-450,000) (NORMAL); PLATELET MORPHOLOGY NORMAL APPEARANCE (NORMAL); RBC MORPHOLOGY (MULTIPLE) NORMAL APPEARANCE (NORMAL)
[2019-09-15] MEDS ORDERED: PIPERACILLIN/TAZOBACTAM 3.375 GM in SODIUM CHLORIDE 0.9% MINIBAG 100 ML IV STA (10:12)
[2019-09-15] MEDS ORDERED: VANCOMYCIN INJ 1 GM in SODIUM CHLORIDE 0.9% 500 ML IV STA (10:12)
[2019-09-15] MEDS ORDERED: IOVERSOL 320 100 ML VIAL IVP ONE ×2 (10:52→12:11)
--- NOTE | 2019-09-15 11:53 | CT Report ---
Reason: LFT elevations, hx biliary obstruct, fever Procedure Date: 09/15/2019 Accession Number: [id number] / [id number] Procedure: CT - Abdomen/Pelvis W CPT Code: Final Report FULL RESULT: EXAM: CT ABDOMEN AND PELVIS EXAM DATE: 09/15/2019 11:38 AM. CLINICAL HISTORY: LFT elevations, hx biliary obstruct, fever. COMPARISONS: ABDOMEN/PELVIS W/ 07/02/2019 8:17 PM. TECHNIQUE: Routine helical CT imaging was performed through the abdomen and pelvis. IV contrast: OPTI 320 90ML. Enteric contrast: No. Reconstructions: Coronal and sagittal. In accordance with CT protocol optimization, one or more of the following dose reduction techniques were utilized for this exam: automated exposure control, adjustment of mA and/or KV based on patient size, or use of iterative reconstructive technique. FINDINGS: Lung Bases: Unremarkable. Liver: Normal. No masses. Gallbladder/Bile Ducts: Gallbladder surgically absent. Minimal central intrahepatic biliary ductal dilatation. Common bile duct mildly dilated in the suprapancreatic portion measuring up to 12 mm and in the intrapancreatic portion up to 9 mm. No radiopaque choledocholithiasis. Spleen: Normal. Pancreas: Normal. Adrenal Glands: Normal. Kidneys: 1.8 cm simple cyst anterolateral cortex lower pole right kidney. Otherwise unremarkable. No hydronephrosis. Peritoneal Cavity/Bowel: Incompletely visualized large hiatal hernia with most of the stomach in the chest, as before. Unopacified small bowel loops are nondilated. The appendix is normal. There is a small amount of formed stool in the colon. There is moderate sigmoid colon diverticulosis. There is no focal pericolonic fat stranding. There is no lymphadenopathy, ascites, or pneumoperitoneum. Pelvic Organs: Small volume bladder. Uterus and ovaries are unremarkable. Vasculature: Incompletely visualized extensive coronary artery calcifications. Moderate aortoiliac calcification without abnormal dilation. Otherwise unremarkable. Bones: L5 is sacralized. There is mild to moderate multilevel lumbar degenerative disk disease greatest at L2-L3. There is prominent Schmorl's node formation superiorly at L1. There is mild bilateral L2-L3, moderate bilateral L3-L4, severe bilateral L4-L5 facet osteoarthritis. Other: Body wall unremarkable. IMPRESSION: 1. Gallbladder surgically absent. Minimal central intrahepatic and mild extrahepatic biliary ductal dilatation, as before. 2. Moderate sigmoid colon diverticulosis without evidence of acute diverticulitis. 3. Large hiatal hernia, as before. 4. Extensive coronary artery calcifications. Moderate aortoiliac atherosclerotic calcification. RADIA
[2019-09-15] MEDS ORDERED: SODIUM CHLORIDE 0.9% 250 ML IV ONE (13:19)
[2019-09-15] MEDS ORDERED: NOREPINEPHRINE IV STA (13:32)
[2019-09-15] MEDS ORDERED: DEXTROSE 5% IV STA (13:32)
[2019-09-15 13:58] LABS: HGB - HEMOGLOBIN 9.8 g/dL (12.0-16.0); MEAN CORPUSCULAR HEMOGLOBIN 29.5 pg (27.0-31.0); MEAN CORPUSCULAR HGB CONC 32.2 g/dL (32.0-36.0); MEAN CORPUSCULAR VOLUME 91.6 fL (81.0-99.0); RED BLOOD COUNT 3.32 10^6/uL (4.20-5.40); RED CELL DISTRIBUTION WIDTH 16.6 % (12.0-15.0); WHITE BLOOD COUNT 8.9 x10^3/uL (4.8-10.8)
[2019-09-15 14:19] LABS: ALBUMIN 2.5 g/dL (3.2-5.5); ALBUMIN/GLOBULIN RATIO 1.1 (1.0-2.2); BILIRUBIN,TOTAL 0.9 mg/dL (0.2-1.0); CALCIUM 7.3 mg/dL (8.5-10.3); CREATININE 0.7 mg/dL (0.4-1.0); TOTAL PROTEIN 4.8 g/dL (6.7-8.2)
--- NOTE | 2019-09-15 15:24 | XRAY Report ---
Reason: CENTRAL LINE PLACEMENT Procedure Date: 09/15/2019 Accession Number: [id number] / [id number] Procedure: XR - Chest for Line Placement CPT Code: Final Report FULL RESULT: EXAM: CHEST RADIOGRAPHY EXAM DATE: 09/15/2019 03:11 PM. CLINICAL HISTORY: CENTRAL LINE PLACEMENT. COMPARISON: 09/15/2019 chest radiograph. TECHNIQUE: 1 view. FINDINGS: Interval placement of a right internal jugular central venous catheter, with the tip terminating in the high right atrium. Lungs are clear. No pneumothorax or pleural effusion. Hiatal hernia. Atherosclerotic calcification in the aorta. Cardiomediastinal silhouette is within normal limits. No fractures. IMPRESSION: Right internal jugular central venous catheter tip terminates in the high right atrium. No pneumothorax. RADIA
[2019-09-15 16:46] LABS: BASOPHILS # (AUTO) 0.1 10^3/uL (0.0-0.1); BASOPHILS % (AUTO) 0.4 %; EOSINOPHILS # (AUTO) 0.2 10^3/uL (0.0-0.7); HGB - HEMOGLOBIN 10.5 g/dL (12.0-16.0); LYMPHOCYTES # (AUTO) 0.6 10^3/uL (1.5-3.5); LYMPHOCYTES % (AUTO) 3.4 %; MEAN CORPUSCULAR HEMOGLOBIN 30.4 pg (27.0-31.0); MEAN CORPUSCULAR HGB CONC 33.3 g/dL (32.0-36.0); MEAN CORPUSCULAR VOLUME 91.3 fL (81.0-99.0); MEAN PLATELET VOLUME 8.9 fL (7.9-10.8); MONOCYTES # (AUTO) 0.4 10^3/uL (0.0-1.0); MONOCYTES % (AUTO) 2.2 %; NEUTROPHILS # (AUTO) 15.2 10^3/uL (1.5-6.6); NEUTROPHILS % (AUTO) 92.4 %; PLT - PLATELET COUNT 187 10^3/uL (130-450); RED BLOOD COUNT 3.45 10^6/uL (4.20-5.40); RED CELL DISTRIBUTION WIDTH 16.8 % (12.0-15.0); WHITE BLOOD COUNT 16.5 x10^3/uL (4.8-10.8)
[2019-09-15 17:05] LABS: INR 2.1 (0.8-1.2); PT - PROTHROMBIN TIME 22.9 secs (9.9-12.6)
[2019-09-15 18:51] VITALS: BP 107/58
== END 2019-09-15 18:58 | disposition short-term general hospital (02) ==
LOC: EDUNIT# → ED 07:59
DX: A41.9 Sepsis, unspecified organism (principal); R65.21 Severe sepsis with septic shock; R74.8 Abnormal levels of other serum enzymes; R74.0 Nonspecific elevation of levels of transaminase and lactic acid dehydrogenase [LDH]; J90 Pleural effusion, not elsewhere classified; I11.0 Hypertensive heart disease with heart failure; I50.9 Heart failure, unspecified; I48.91 Unspecified atrial fibrillation; Z79.01 Long term (current) use of anticoagulants; Z79.02 Long term (current) use of antithrombotics/antiplatelets; Z79.82 Long term (current) use of aspirin; I25.10 Atherosclerotic heart disease of native coronary artery without angina pectoris; Z95.5 Presence of coronary angioplasty implant and graft; E11.9 Type 2 diabetes mellitus without complications; Z79.84 Long term (current) use of oral hypoglycemic drugs; K44.9 Diaphragmatic hernia without obstruction or gangrene; K83.8 Other specified diseases of biliary tract; Z90.49 Acquired absence of other specified parts of digestive tract; K57.30 Diverticulosis of large intestine without perforation or abscess without bleeding; M51.36 Other intervertebral disc degeneration, lumbar region; M47.816 Spondylosis without myelopathy or radiculopathy, lumbar region; Z85.118 Personal history of other malignant neoplasm of bronchus and lung; Z85.01 Personal history of malignant neoplasm of esophagus
CPT/HCPCS: 36415; 36556; 71045; 74177; 80053; 81001; 82272; 83605; 83880; 84439; 84484; 85025; 85027; 85610; 87040; 87077; 87181; 87275; 87276; 93005; 96361; 96365; 96366; 96367; 96375; 99284; 99285; A9270; J3370; Q9967; 87086

== ENCOUNTER 2019-10-12 13:04 | Emergency (ER) | payer MEDICARE, OTHER ==
[2019-10-12 13:12] VITALS: BP 145/82
--- NOTE | 2019-10-12 13:31 | ED Physician Documentation ---
History of Present Illness - Stated complaint Stated Complaint: FALL - Chief complaint Chief Complaint: Wound - History obtained from History obtained from: Patient, Family - History of Present Illness Timing: Today - Additonal information Additional information: 79-year-old female who is on Xarelto went to sit on the commode and abraded her tailbone against the edge of the commode and she has had some bleeding to the area and she is having some trouble controlling this she has had to wear a depends and she is had change that because of bleeding. Review of Systems Constitutional: denies: Fever Nose: denies: Congestion Respiratory: denies: Cough GI: denies: Vomiting PD PAST MEDICAL HISTORY - Past Medical History Cardiovascular: Hypertension, High cholesterol, Coronary artery disease, [place], Atrial fibrillation Respiratory: Other Endocrine/Autoimmune: Type 2 diabetes GI: GERD, Hiatal hernia, Other : Incontinence HEENT: Chronic vision loss, Other Psych: Depression Musculoskeletal: Osteoarthritis, Fibromyalgia - Past Surgical History Past Surgical History: Yes General: Cholecystectomy, Hiatal hernia repair, Colonoscopy, Other Ortho: Knee replacement, Carpal Tunnel surgery Cardiovascular: Coronary stent HEENT: Tonsil/Adenoidectomy, Other - Present Medications Home Medications: Ambulatory Orders Medication Instructions Recorded Confirmed Folic Acid 1 mg PO DAILY 09/05/14 02/26/19 Isosorbide Mononitrate [Isosorbide 30 mg PO DAILY 09/05/14 02/26/19 Mononitrate ER] Omeprazole [PriLOSEC] 20 mg PO BID 09/05/14 02/26/19 metFORMIN [Glucophage] 1,500 mg PO BID 09/05/14 02/26/19 Rivaroxaban [Xarelto] 20 mg PO DAILY 10/11/14 02/26/19 Atorvastatin [Lipitor] 20 mg PO DAILY 03/25/15 02/26/19 Aspirin [Aspir 81] 1 tab PO DAILY 03/26/15 02/26/19 Fentanyl [Fentanyl 12mcg patch] 75 mcg TD ONCE 03/26/15 02/26/19 Levothyroxine [Synthroid] 100 tab PO DAILY 03/26/15 02/26/19 Metoprolol Tartrate 75 mg PO BID 03/26/15 02/26/19 Nitroglycerin [Nitrostat] 1 tab SQ PRN PRN 09/02/17 02/26/19 Magnesium 250 mg PO DAILY 01/16/18 02/26/19 - Allergies Allergies/Adverse Reactions: Allergies Allergy/AdvReac Type Severity Reaction Status Date / Time No Known Drug Allergies Allergy Verified 10/12/19 13:09 - Social History Does the pt smoke?: No Smoking Status: Never smoker Does the pt drink ETOH?: No Does the pt have substance abuse?: No - Immunizations Immunizations are current?: Yes - POLST Patient has POLST: No PD ED PE NORMAL - Vitals Vital signs reviewed: Yes (tachy and hypertensive ) - General General: No acute distress, Well developed/nourished - HEENT HEENT: Atraumatic, PERRL, EOMI - Respiratory Respiratory: No respiratory distress - Back Back: Other (over the distal sacral area there is an abrasion that has a linear component that continues to ooze blood a deep scratch. this is covered with dermabond. ) - Derm Derm: Normal color, Warm and dry, No rash - Neuro Neuro: No motor deficit, No sensory deficit Eye Opening: Spontaneous Motor: Obeys Commands Verbal: Oriented GCS Score: 15 - Psych Psych: Normal mood, Normal affect Results - Vitals Vitals: Vital Signs - 24 hr 10/12/19 13:09 Temperature 36.8 C Heart Rate 121 H Respiratory 16 Rate Blood Pressure 145/82 H O2 Saturation 93 Oxygen O2 Source Room air Procedures - Laceration (location) sacrum Length in cm: 2 Wound type: Linear, Superficial Neurovascular status: Sensory intact, Motor intact Wound Preparation: Wound explored, To the base Skin layer closure: Dermabond Other: Patient tolerated well, No complications, Neurovascular intact Complexity: Simple PD MEDICAL DECISION MAKING - ED course Complexity details: considered differential, d/w patient, d/w family ED course: 79-year-old female on xaralto who has abraded her sacral area with a superficial laceration that continues to ooze blood require some Dermabond to cover this area to resolve her bleeding. Departure - Departure Disposition: 01 Home, Self Care Clinical Impression: Abrasion Condition: Stable Instructions: ED Abrasion Follow-Up: Krysta Mcknight MD [Primary Care Provider] - Discharge Date/Time: 10/12/19 13:39
== END 2019-10-12 13:39 | disposition home or self-care (01) ==
LOC: ED 13:04
DX: S30.810A Abrasion of lower back and pelvis, initial encounter (principal); W18.30XA Fall on same level, unspecified, initial encounter; W22.09XA Striking against other stationary object, initial encounter; Y93.E8 Activity, other personal hygiene; Y92.002 Bathroom of unspecified non-institutional (private) residence as the place of occurrence of the external cause; I10 Essential (primary) hypertension; E11.9 Type 2 diabetes mellitus without complications; Z79.84 Long term (current) use of oral hypoglycemic drugs; Z79.01 Long term (current) use of anticoagulants
CPT/HCPCS: 12001; 99282; 99284

== ENCOUNTER 2019-10-24 10:13 | Outpatient (CLI) | payer MEDICARE, OTHER | END 2019-10-24 10:14 | disposition home or self-care (01) | LOC: LAB 10:13 | PROVIDERS: ATTEND Student in an Organized Health Care Education/Training Program | DX: E05.90 Thyrotoxicosis, unspecified without thyrotoxic crisis or storm (principal) | CPT/HCPCS: 36415; 84432; 84443; 86800 ==

== ENCOUNTER 2020-10-07 13:03 | Outpatient (CLI) | payer MEDICARE, OTHER | END 2020-10-07 13:04 | disposition short-term general hospital (02) | LOC: EMS 13:03 | DX: R42 Dizziness and giddiness (principal); R00.1 Bradycardia, unspecified; R06.00 Dyspnea, unspecified; R07.9 Chest pain, unspecified; W18.11XA Fall from or off toilet without subsequent striking against object, initial encounter; Y92.002 Bathroom of unspecified non-institutional (private) residence as the place of occurrence of the external cause | CPT/HCPCS: A0425; A0427 ==

== ENCOUNTER 2020-12-16 11:29 | Outpatient (CLI) | payer MEDICARE, OTHER ==
--- NOTE | 2020-12-16 16:53 | XRAY Report ---
PROCEDURE: Hips 2V BILAT INDICATIONS: BILATERAL HIP PAIN TECHNIQUE: For total views of the hip were acquired. COMPARISON: CT abdomen/pelvis 09/15/2019 FINDINGS: Bones: No fractures or dislocations but there is moderately severe degenerative hip joint osteoarthr itis with joint space narrowing and articular margin osteophyte formation. No prior trauma is found.. No suspicious bony lesions. The visualized pelvic ring appears intact. Soft tissues: No suspicious soft tissue calcifications or masses. IMPRESSION: Moderately severe symmetric bilateral hip joint osteoarthritis without trauma. Reviewed by: Jesus Taylor MD on 12/16/2020 4:52 PM PDT Approved by: Jesus Taylor MD on 12/16/2020 4:52 PM PDT Station ID: [id number]
== END 2020-12-16 11:30 | disposition home or self-care (01) ==
LOC: DI 11:29
PROVIDERS: ATTEND Internal Medicine
DX: M16.0 Bilateral primary osteoarthritis of hip (principal)

== ENCOUNTER 2021-09-02 11:57 | Emergency (ER) | payer MEDICARE, OTHER ==
[2021-09-02] MEDS ORDERED: NITROGLYCERIN SL 0.4 MG TABLET SL STA (12:26)
[2021-09-02] MEDS ORDERED: ASPIRIN 325 MG TABLET PO STA (12:26)
--- NOTE | 2021-09-02 12:27 | ED Physician Documentation ---
History of Present Illness - Stated complaint Stated Complaint: PX UNDER RIBS,L SIDE,L SHOULDER - Chief complaint Chief Complaint: Cardiac - Additonal information Additional information: 81-year-old female who has a history of atrial fibrillation with a watchman device in place presents to the emergency department for evaluation of epigastric abdominal pain as well as chest pain. Reports that she was on the toilet began to have epigastric pain that then radiated into her chest and shoulder. She did have some nausea but no vomiting. She reports a history of multiple previous myocardial infarctions though this feels different than jazlyn mauros. She continues to endorse mild chest pain at this time here in the emergency department. She initially went to her primary care doctor's office who referred her to the ER. Review of Systems Constitutional: denies: Fever, Chills Eyes: reports: Reviewed and negative Nose: reports: Reviewed and negative Throat: reports: Reviewed and negative Cardiac: reports: Chest pain / pressure. denies: Palpitations, Pedal edema, Calf pain Respiratory: denies: Dyspnea GI: reports: Abdominal Pain, Nausea. denies: Vomiting, Constipation, Diarrhea : denies: Dysuria, Frequency Skin: reports: Reviewed and negative Musculoskeletal: reports: Reviewed and negative Neurologic: reports: Reviewed and negative PD PAST MEDICAL HISTORY - Past Medical History Past Medical History: Yes Cardiovascular: Hypertension, High cholesterol, Coronary artery disease, [place], Atrial fibrillation Respiratory: Other Endocrine/Autoimmune: Type 2 diabetes GI: GERD, Hiatal hernia, Other : Incontinence HEENT: Chronic vision loss, Other Psych: Depression Musculoskeletal: Osteoarthritis, Fibromyalgia - Past Surgical History Past Surgical History: Yes General: Cholecystectomy, Hiatal hernia repair, Colonoscopy, Other Ortho: Knee replacement, Carpal Tunnel surgery Cardiovascular: Coronary stent HEENT: Tonsil/Adenoidectomy, Other - Present Medications Home Medications: Ambulatory Orders Medication Instructions Recorded Confirmed Folic Acid 1 mg PO DAILY 09/05/14 09/02/21 Isosorbide Mononitrate [Isosorbide 30 mg PO DAILY 09/05/14 09/02/21 Mononitrate ER] Omeprazole [PriLOSEC] 20 mg PO BID 09/05/14 09/02/21 metFORMIN [Glucophage] 500 mg PO BID 09/05/14 09/02/21 Atorvastatin [Lipitor] 10 mg PO DAILY 03/25/15 09/02/21 Aspirin [Aspir 81] 1 tab PO DAILY 03/26/15 09/02/21 Fentanyl [Fentanyl 12mcg patch] 75 mcg TD ONCE 03/26/15 09/02/21 Levothyroxine [Synthroid] 112 tab PO DAILY 03/26/15 09/02/21 Metoprolol Tartrate 25 mg PO BID 03/26/15 09/02/21 Nitroglycerin [Nitrostat] 1 tab SQ PRN PRN 09/02/17 09/02/21 Magnesium 500 mg PO DAILY 01/16/18 09/02/21 Furosemide [Lasix] 20 mg PO DAILY 09/02/21 09/02/21 Pantoprazole [Protonix] 40 mg PO DAILY 09/02/21 09/02/21 Potassium Chloride 10 meq PO DAILY 09/02/21 09/02/21 - Allergies Allergies/Adverse Reactions: Allergies Allergy/AdvReac Type Severity Reaction Status Date / Time No Known Drug Allergies Allergy Verified 09/02/21 12:09 - Social History Does the pt smoke?: No Smoking Status: Never smoker Does the pt drink ETOH?: No Does the pt have substance abuse?: No - Immunizations Immunizations are current?: Yes - POLST Patient has POLST: No PD ED PE EXPANDED - General General: Alert, No acute distress - Cardiac Cardiac: Regular Rate, Irregularly irregular, Murmur Present, Radial strong equal, Pedal strong equal, Cap refill < 2 sec - Respiratory Respiratory: Clear to ausultation paxton. No: Distress, Labored - Abdomen Abdomen: Normal Bowel sounds. No: Tender to palpation - Back Back: Normal exam - Derm Derm: Normal color, Warm and dry. No: Rash - Extremities Extremities: Normal. No: Deformity, Tenderness - Neuro Neuro: Alert and Oriented X 3, CNII-XII intact - GCS Eye Opening: Spontaneous Motor: Obeys Commands Verbal: Oriented Total: 15 Results - Vitals Vitals: Vital Signs - 24 hr 09/02/21 09/02/21 09/02/21 12:07 12:16 12:42 Temperature 36.5 C Heart Rate 68 59 L 59 L Respiratory 20 21 14 Rate Blood Pressure 163/84 H 162/86 H 159/96 H O2 Saturation 99 100 98 09/02/21 09/02/21 09/02/21 13:12 13:34 14:00 Temperature Heart Rate 63 62 62 Respiratory 24 21 20 Rate Blood Pressure 153/74 H 168/71 H 150/89 H O2 Saturation 97 97 98 Oxygen O2 Source Room air - EKG (time done) 1209 Rate: Rate (enter#) (57) Rhythm: Atrial fibrillation [place]: Other Intervals: LBBB QRS: Low voltage Ischemia: Q waves Compare to prior EKG: Changed from prior EKG (new LBBB) - Labs Labs: Laboratory Tests 09/02/21 09/02/21 09/02/21 12:27 12:27 12:27 WBC 4.3 L RBC 4.50 Hgb 13.7 Hct 40.6 MCV 90.2 MCH 30.4 MCHC 33.7 RDW 13.6 Plt Count 145 MPV 9.1 Neut # (Auto) 2.7 Lymph # (Auto) 1.1 L George # (Auto) 0.3 Eos # (Auto) 0.0 Baso # (Auto) 0.0 Absolute Nucleated RBC 0.00 Nucleated RBC % 0.0 PT INR Sodium 136 Potassium 3.9 Chloride 98 L Carbon Dioxide 28 Anion Gap 10.0 BUN 17 Creatinine 0.7 Estimated GFR (MDRD) 80 L Glucose 152 H Calcium 9.0 Total Bilirubin 0.6 AST 47 H ALT 21 Alkaline Phosphatase 63 Troponin I High Sens 9.4 B-Natriuretic Peptide Total Protein 6.7 Albumin 3.6 Globulin 3.1 Albumin/Globulin Ratio 1.2 Lipase 23 TSH 09/02/21 09/02/21 09/02/21 12:27 12:27 12:27 WBC RBC Hgb Hct MCV MCH MCHC RDW Plt Count MPV Neut # (Auto) Lymph # (Auto) George # (Auto) Eos # (Auto) Baso # (Auto) Absolute Nucleated RBC Nucleated RBC % PT 11.3 INR 1.0 Sodium Potassium Chloride Carbon Dioxide Anion Gap BUN Creatinine Estimated GFR (MDRD) Glucose Calcium Total Bilirubin AST ALT Alkaline Phosphatase Troponin I High Sens B-Natriuretic Peptide 157 H Total Protein Albumin Globulin Albumin/Globulin Ratio Lipase TSH 0.18 L 09/02/21 13:59 WBC RBC Hgb Hct MCV MCH MCHC RDW Plt Count MPV Neut # (Auto) Lymph # (Auto) George # (Auto) Eos # (Auto) Baso # (Auto) Absolute Nucleated RBC Nucleated RBC % PT INR Sodium Potassium Chloride Carbon Dioxide Anion Gap BUN Creatinine Estimated GFR (MDRD) Glucose Calcium Total Bilirubin AST ALT Alkaline Phosphatase Troponin I High Sens 9.6 B-Natriuretic Peptide Total Protein Albumin Globulin Albumin/Globulin Ratio Lipase TSH PD MEDICAL DECISION MAKING - ED course Complexity details: reviewed results, re-evaluated patient, d/w patient, d/w benefits sales consultant (Kermit (Deckhand Engineer)) ED course: 81-year-old female who has an extensive history of coronary artery disease status post stenting as well as atrial fibrillation with a watchman device in place presents to the emergency department for epigastric abdominal pain that radiated to her chest. This occurred while she was on the toilet defecating. She states that this feels different than previous myocardial infarction she has had. Her EKG today does show atrial fibs with a new left bundle branch block. On initial presentation tot he ED, pt has mild chest pressure. This was resolved with nitro X1. About 30 minutes later she again developed chest pressure, therefore nitro was again administered. After the second dose, she remaine dchest pain free Screening labs show a very mild leukocytosis. Initial troponin and BNP are not elevated. The rest of her electrolytes are unrevealing. Chest x-ray did not show A focal pneumonia. Given the finding of a new left bundle branch block I did call her cardiology office. I spoke with Dr. Carmen who is on-call for Dr. Knutson and he reported that the left bundle branch block is okay as long as she does not have elevated troponins and he would recommend 2-3 serial troponins. she should be seen in cardiology clinic in follow-up for stress test as this is not available this weekend here at [facility]. Departure - Departure Disposition: Home, Self Care Clinical Impression: Left bundle branch block (LBBB) determined by electrocardiography Chest pain Qualifiers: Chest pain type: unspecified Qualified Code(s): R07.9 - Chest pain, unspecified Condition: Stable Record reviewed to determine appropriate education?: Yes Instructions: Nitroglycerin Fast Act Dc Follow-Up: Krysta Mcknight MD [Primary Care Provider] - Comments: Amber nelson were seen in the emergency department today for chest pain. Your EKG has changed today and now shows a left bundle branch block. This was discussed with your staff air defense officer group. They would like you to call to schedule an outpatient stress test for perhaps next week. Continue to take your previously prescribed medications. If you develop chest pain it is okay to take the nitroglycerin. If the chest pain does not improve with the nitroglycerin then you should return to the emergency department. Return sooner for fevers, any fainting episodes or worsening symptoms.
[2021-09-02 12:33] LABS: BASOPHILS % (AUTO) 0.2 %; EOSINOPHILS % (AUTO) 0.7 %; HCT - HEMATOCRIT 40.6 % (37.0-47.0); HGB - HEMOGLOBIN 13.7 g/dL (12.0-16.0); LYMPHOCYTES # (AUTO) 1.1 10^3/uL (1.5-3.5); LYMPHOCYTES % (AUTO) 26.7 %; MEAN CORPUSCULAR HEMOGLOBIN 30.4 pg (27.0-31.0); MEAN CORPUSCULAR HGB CONC 33.7 g/dL (32.0-36.0); MEAN CORPUSCULAR VOLUME 90.2 fL (81.0-99.0); MEAN PLATELET VOLUME 9.1 fL (7.9-10.8); MONOCYTES # (AUTO) 0.3 10^3/uL (0.0-1.0); NEUTROPHILS # (AUTO) 2.7 10^3/uL (1.5-6.6); NEUTROPHILS % (AUTO) 64.2 %; PLT - PLATELET COUNT 145 10^3/uL (130-450); RED CELL DISTRIBUTION WIDTH 13.6 % (12.0-15.0); WHITE BLOOD COUNT 4.3 x10^3/uL (4.8-10.8)
[2021-09-02 12:46] LABS: ALBUMIN 3.6 g/dL (3.2-5.5); ALBUMIN/GLOBULIN RATIO 1.2 (1.0-2.2); BILIRUBIN,TOTAL 0.6 mg/dL (0.2-1.0); CREATININE 0.7 mg/dL (0.4-1.0); POTASSIUM 3.9 mmol/L (3.5-5.0); TOTAL PROTEIN 6.7 g/dL (6.7-8.2)
[2021-09-02 12:48] LABS: PT - PROTHROMBIN TIME 11.3 secs (9.9-12.6)
--- NOTE | 2021-09-02 12:57 | XRAY Report ---
PROCEDURE: Chest 1 View X-Ray INDICATIONS: Chest pain TECHNIQUE: One view of the chest was acquired. COMPARISON: 09/15. FINDINGS: Surgical changes and devices: None. Lungs and pleura: Blunting of the costophrenic angles is stable compared to prior exam and could repr esent pleural scarring or trace bilateral pleural fluid collections. Lungs are clear. Mediastinum: Mediastinal contours appear normal. Heart size is normal. Large retrocardiac hiatal he rnia is stable. Bones and chest wall: No suspicious bony lesions. Overlying soft tissues appear unremarkable. IMPRESSION: Trace recurrent bilateral pleural fluid collections versus pleural scarring. Reviewed by: Viktoriya Connor MD, PhD on 09/02/2021 11:55 AM [facility] Approved by: Viktoriya Connor MD, PhD on 09/02/2021 11:55 AM [facility] Station ID: [id number]
[2021-09-02 14:35] VITALS: BP 153/75
== END 2021-09-02 15:39 | disposition home or self-care (01) ==
LOC: ED 11:57
DX: I44.7 Left bundle-branch block, unspecified (principal); I48.91 Unspecified atrial fibrillation; Z79.01 Long term (current) use of anticoagulants; I10 Essential (primary) hypertension; E11.9 Type 2 diabetes mellitus without complications; Z79.84 Long term (current) use of oral hypoglycemic drugs
CPT/HCPCS: 36415; 71045; 80053; 83690; 83880; 84443; 84484; 85025; 85610; 93005; 99282; 99284; A9270

== ENCOUNTER 2021-12-07 08:00 | Outpatient (CLI) | payer MEDICARE, OTHER ==
[2021-12-07 16:22] LABS: BASOPHILS % (AUTO) 0.5 %; EOSINOPHILS # (AUTO) 0.1 10^3/uL (0.0-0.7); EOSINOPHILS % (AUTO) 1.3 %; HCT - HEMATOCRIT 41.6 % (37.0-47.0); HGB - HEMOGLOBIN 13.8 g/dL (12.0-16.0); LYMPHOCYTES # (AUTO) 1.6 10^3/uL (1.5-3.5); LYMPHOCYTES % (AUTO) 40.5 %; MEAN CORPUSCULAR HEMOGLOBIN 30.2 pg (27.0-31.0); MEAN CORPUSCULAR HGB CONC 33.2 g/dL (32.0-36.0); MONOCYTES # (AUTO) 0.4 10^3/uL (0.0-1.0); MONOCYTES % (AUTO) 9.2 %; NEUTROPHILS # (AUTO) 1.9 10^3/uL (1.5-6.6); NEUTROPHILS % (AUTO) 48.2 %; PLT - PLATELET COUNT 185 10^3/uL (130-450); RED BLOOD COUNT 4.57 10^6/uL (4.20-5.40); RED CELL DISTRIBUTION WIDTH 13.5 % (12.0-15.0); WHITE BLOOD COUNT 3.9 x10^3/uL (4.8-10.8)
[2021-12-07 16:31] LABS: BILIRUBIN,URINE NEGATIVE (NEGATIVE); GLUCOSE, URINE (UA) NEGATIVE (NEGATIVE); KETONES,URINE (UA) NEGATIVE (NEGATIVE); LEUKOCYTE ESTERASE, URINE NEGATIVE (NEGATIVE); NITRITE,URINE NEGATIVE (NEGATIVE); OCCULT BLOOD,URINE NEGATIVE (NEGATIVE); PH,URINE 7.5 PH (5.0-7.5); PROTEIN,URINE NEGATIVE (NEGATIVE); UROBILINOGEN,URINE 0.2 (NORMAL) E.U./dL (NORMAL)
[2021-12-07 16:32] LABS: CLARITY,URINE CLEAR (CLEAR)
[2021-12-07 16:37] LABS: RBC,URINE None Seen /HPF (0-5); WBC,URINE 0-3 /HPF (0-5)
[2021-12-07 16:38] LABS: BACTERIA,URINE Few /HPF (None Seen); SQUAMOUS EPITHELIAL CELL,UR FEW Squamous (<= Few); YEAST,URINE PRESENT
[2021-12-07 16:44] LABS: CREATININE,URINE 121.5 mg/dL; MICROALBUM/CREATININE RATIO,UR 2.5 ug/mg (<30.0); MICROALBUMIN,URINE 0.3 mg/dL (0-300.0)
[2021-12-07 16:46] LABS: ALBUMIN 3.9 g/dL (3.2-5.5); ALBUMIN/GLOBULIN RATIO 1.3 (1.0-2.2); ALKALINE PHOSPHATASE 52 IU/L (42-121); ALT ALANINE AMINOTRANSFERASE 15 IU/L (10-60); AST ASPARTATE AMINOTRANSFERASE 26 IU/L (10-42); BILIRUBIN,TOTAL 0.8 mg/dL (0.2-1.0); BUN - BLOOD UREA NITROGEN 15 mg/dL (6-20); CALCIUM 8.8 mg/dL (8.5-10.3); CARBON DIOXIDE - CO2 30 mmol/L (21-32); CHLORIDE 94 mmol/L (101-111); CHOL/HDL RATIO 2.2 (<4.4); CHOLESTEROL 121 mg/dL; CREATININE 0.7 mg/dL (0.4-1.0); GFR - MDRD 80 (>89); GLUCOSE 95 mg/dL (70-100); HDL CHOLESTEROL 56 mg/dL; LDL CHOLESTEROL,CALCULATED 46 mg/dL; LDL/HDL RATIO 0.8 (<4.4); POTASSIUM 3.9 mmol/L (3.5-5.0); SODIUM 135 mmol/L (135-145); TOTAL PROTEIN 6.9 g/dL (6.7-8.2); TRIGLYCERIDES 93 mg/dL; VLDL CHOLESTEROL 19 mg/dL
[2021-12-07 16:51] LABS: THYROID STIMULATING HORMONE 0.38 uIU/mL (0.34-5.60)
[2021-12-07 20:31] LABS: ESTIMATED AVERAGE GLUCOSE 108 mg/dL (70-100); HEMOGLOBIN A1c% 5.4 % (4.27-6.07)
== END 2021-12-07 08:01 | disposition home or self-care (01) ==
LOC: LAB.R 08:00
PROVIDERS: ATTEND Internal Medicine
DX: C34.90 Malignant neoplasm of unspecified part of unspecified bronchus or lung (principal); I48.91 Unspecified atrial fibrillation; I50.9 Heart failure, unspecified; I25.10 Atherosclerotic heart disease of native coronary artery without angina pectoris; E11.9 Type 2 diabetes mellitus without complications; R13.10 Dysphagia, unspecified; G43.909 Migraine, unspecified, not intractable, without status migrainosus; K27.9 Peptic ulcer, site unspecified, unspecified as acute or chronic, without hemorrhage or perforation; C73 Malignant neoplasm of thyroid gland; G45.9 Transient cerebral ischemic attack, unspecified; N39.41 Urge incontinence; Z79.899 Other long term (current) drug therapy; Z13.6 Encounter for screening for cardiovascular disorders
CPT/HCPCS: 80053; 80061; 81001; 81599; 82043; 82570; 82607; 83036; 83721; 84443; 85025; 86376; 86800; 87086

== ENCOUNTER 2022-01-18 08:00 | Outpatient (CLI) | payer MEDICARE, OTHER ==
--- NOTE | 2022-01-23 10:58 | Mammography Report ---
BILATERAL DIGITAL SCREENING MAMMOGRAM 3D/2D: 01/18/2022 CLINICAL: Routine screening. Comparison is made to exams dated: 01/10/2019 mammogram, 12/13/2017 mammogram, 04/11/2017 mammogram, 11/12 mammogram, 01/15/2015 mammogram, and 01/26/2014 mammogram - [facility]. There are scattered fibroglandular elements in both breasts. No significant masses, calcifications, or other findings are seen in either breast. There has been no significant interval change. IMPRESSION: NEGATIVE There is no mammographic evidence of malignancy. A 1 year screening mammogram is recommended. This exam was interpreted at Station ID: [id number]. NOTE: For mammograms, a report in lay terms will be sent to the patient. Approximately 15% of breast malignancies will not be visualized mammographically. In the management of a palpable breast mass, a negative mammogram must not discourage biopsy of a clinically suspicious lesion. Electronically Signed By: Lauro atwood/len:01/23/2022 07:51:13 ACR BI-RADS Category 1: Negative 3341F PARENCHYMAL PATTERN: (A) - The breast(s) demonstrate(s) scattered fibroglandular densities. BI-RADS CATEGORY: (1) - 1 RECOMMENDATION: (ANNUAL) - Recommend routine annual screening mammography. [id number] 1 year screening LATERALITY: (B)
== END 2022-01-18 23:59 | disposition home or self-care (01) ==
LOC: DI.S 08:00
PROVIDERS: ATTEND Internal Medicine
DX: Z12.31 Encounter for screening mammogram for malignant neoplasm of breast (principal)

== ENCOUNTER 2023-01-16 10:53 | Outpatient (CLI) | payer MEDICARE, OTHER ==
--- NOTE | 2023-01-17 10:09 | Mammography Report ---
BILATERAL DIGITAL SCREENING MAMMOGRAM 3D/2D: 01/16/2023 CLINICAL: Routine screening. Comparison is made to exams dated: 01/18/2022 mammogram and 01/10/2019 mammogram - [facility]. There are scattered areas of fibroglandular density in both breasts (category b / 25%-50% glandular t issue). There are benign calcifications in both breasts. No significant masses, calcifications, or other findings are seen in either breast. There has been no significant interval change. IMPRESSION: BENIGN There is no mammographic evidence of malignancy. A 1 year screening mammogram is recommended. Based on the Tyrer Cuzick model (a risk assessment model) the patients lifetime risk is 0.2% and her 10 year risk is 0.0%. According to the ACR, ACS, and NCCN guidelines, an annual breast MRI exam waqas g with mammogram is recommended if the patients lifetime risk is 20% or greater. This exam was interpreted at Station ID: [id number]. NOTE: For mammograms, a report in lay terms will be sent to the patient. Approximately 15% of breast malignancies will not be visualized mammographically. In the management of a palpable breast mass, a negative mammogram must not discourage biopsy of a clinically suspicious lesion. Electronically Signed By: Gwendolyn ballard/len:01/16/2023 14:49:09 letter sent: No_Letter ACR BI-RADS Category 2: Benign Finding(s) 3342F PARENCHYMAL PATTERN: (A) - The breast(s) demonstrate(s) scattered fibroglandular densities. BI-RADS CATEGORY: (2) - 2 Mammogram [id number] 1 year screening LATERALITY: (B)
== END 2023-01-16 10:54 | disposition home or self-care (01) ==
LOC: DI.S 10:53
PROVIDERS: ATTEND Internal Medicine
DX: Z12.31 Encounter for screening mammogram for malignant neoplasm of breast (principal)

== ENCOUNTER 2023-02-28 13:32 | Outpatient (CLI) | payer MEDICARE, OTHER | END 2023-02-28 23:59 | disposition critical access hospital (66) | LOC: EMS 13:32 | DX: S09.90XA Unspecified injury of head, initial encounter (principal); W03.XXXA Other fall on same level due to collision with another person, initial encounter; Y92.009 Unspecified place in unspecified non-institutional (private) residence as the place of occurrence of the external cause | CPT/HCPCS: A0425; A0429 ==

== ENCOUNTER 2023-06-07 12:10 | Outpatient (CLI) | payer MEDICARE, OTHER ==
[2023-06-07 12:32] LABS: BASOPHILS # (AUTO) 0.1 10^3/uL (0.0-0.1); BASOPHILS % (AUTO) 0.4 %; EOSINOPHILS # (AUTO) 0.1 10^3/uL (0.0-0.7); EOSINOPHILS % (AUTO) 0.6 %; HCT - HEMATOCRIT 37.3 % (37.0-47.0); HGB - HEMOGLOBIN 12.9 g/dL (12.0-16.0); LYMPHOCYTES # (AUTO) 1.2 10^3/uL (1.5-3.5); LYMPHOCYTES % (AUTO) 9.7 %; MEAN CORPUSCULAR HEMOGLOBIN 30.4 pg (27.0-31.0); MEAN CORPUSCULAR HGB CONC 34.6 g/dL (32.0-36.0); MONOCYTES # (AUTO) 1.3 10^3/uL (0.0-1.0); MONOCYTES % (AUTO) 10.2 %; NEUTROPHILS # (AUTO) 9.9 10^3/uL (1.5-6.6); NEUTROPHILS % (AUTO) 78.5 %; PLT - PLATELET COUNT 232 10^3/uL (130-450); RED BLOOD COUNT 4.24 10^6/uL (4.20-5.40); RED CELL DISTRIBUTION WIDTH 13.4 % (12.0-15.0); WHITE BLOOD COUNT 12.6 x10^3/uL (4.8-10.8)
[2023-06-07 12:45] LABS: ALBUMIN 3.5 g/dL (3.2-5.5); BILIRUBIN,TOTAL 0.6 mg/dL (0.2-1.0); CALCIUM 9.9 mg/dL (8.5-10.3); CREATININE 0.9 mg/dL (0.6-1.3); POTASSIUM 4.4 mmol/L (3.5-4.5); TOTAL PROTEIN 7.1 g/dL (6.4-8.9)
[2023-06-07 13:01] LABS: THYROID STIMULATING HORMONE 1.19 uIU/mL (0.34-5.60)
[2023-06-07 13:12] LABS: BILIRUBIN,URINE NEGATIVE (NEGATIVE); GLUCOSE, URINE (UA) NEGATIVE (NEGATIVE); KETONES,URINE (UA) TRACE mg/dL (NEGATIVE); LEUKOCYTE ESTERASE, URINE MODERATE (NEGATIVE); NITRITE,URINE POSITIVE (NEGATIVE); OCCULT BLOOD,URINE SMALL (NEGATIVE); PH,URINE 5.5 PH (5.0-7.5); PROTEIN,URINE 30 mg/dL (NEGATIVE); UROBILINOGEN,URINE 0.2 (NORMAL) E.U./dL (NORMAL)
[2023-06-07 13:27] LABS: BACTERIA,URINE Moderate /HPF (None Seen); CLARITY,URINE HAZY (CLEAR); RBC,URINE 0-5 /HPF (0-5); SQUAMOUS EPITHELIAL CELL,UR RARE Squamous (<= Few); WBC CLUMPS,URINE PRESENT; WBC,URINE >25 /HPF (0-5)
--- NOTE | 2023-06-07 13:51 | XRAY Report ---
PROCEDURE: Chest 2 View X-Ray INDICATIONS: DYSPNEA ON EXERTION TECHNIQUE: 2 views of the chest were acquired. COMPARISON: 09/02/2021 and 09/15/2019. FINDINGS: Surgical changes and devices: Atrial appendage occlusion device. Cholecystectomy clips. Lungs and pleura: No pleural effusions or pneumothorax. Lungs are clear. Chronic blunting of the bi lateral costophrenic angles. Lungs hyperinflated testing COPD. Mediastinum: Mediastinal contours appear normal. Heart size is normal. Large retrocardiac hiatal he rnia. Hiatal hernia. Bones and chest wall: No suspicious bony lesions. Overlying soft tissues appear unremarkable. IMPRESSION: No acute cardiopulmonary process. Reviewed by: Viktoriya Connor MD, PhD on 06/07/2023 1:50 PM PDT Approved by: Viktoriya Connor MD, PhD on 06/07/2023 1:50 PM PDT Station ID: [id number]
== END 2023-06-07 12:11 | disposition home or self-care (01) ==
LOC: DI 12:10
PROVIDERS: ATTEND Internal Medicine
DX: R06.09 Other forms of dyspnea (principal); R68.83 Chills (without fever); R05.3 Chronic cough; R53.83 Other fatigue; M79.10 Myalgia, unspecified site; Z79.899 Other long term (current) drug therapy
CPT/HCPCS: 36415; 80053; 81001; 83880; 84443; 85025; 87086; 87181

== ENCOUNTER 2025-08-04 11:14 | Inpatient (IN) ==
--- NOTE | 2025-08-04 11:26 | ED Physician Documentation ---
PD HPI ALTERED MENTAL STATUS Stated complaint Stated Complaint: SEPSIS Chief complaint Chief Complaint: Neuro Additional information Additional information: 85-year-old female comes in via ambulance for altered mental status and profound weakness. Patient was obtunded unable to provide any information she lives with her daughter Dayami who is at bedside and lives with the patient. Patient's daughter Dayami states that over the last couple days patient seems to have been declining she still was communicative last night but definitely seems more weak does not think there is any fevers or chills she recently had bilateral femur surgery from a fall that caused femur fractures at [facility] and since this time she has not been able to get out of bed or ambulate she has been working with [facility] [employer] for her at home nursing services as well as physical therapy but daughter reports that she has not been able to participate much in physical therapy due to profound weakness. Dayami says she went to go awake her mother this morning to give her her medication but mother was not really waking responding to her. Patient is only arousable to painful stimuli. Nikita Coma Scale Assess Eye opening: To Pain Verbal response: None Motor response: Localizes to Pain Total score: 8 Meds/Allgy Home Medications Ambulatory Orders Medication Instructions Recorded Confirmed folic acid 1 mg tablet 1 mg PO DAILY 09/05/1408/04 metformin 500 mg tablet 500 mg PO BID 09/05/1408/04 atorvastatin 20 mg tablet 10 mg PO DAILY 03/25/1507/14 nitroglycerin 0.4 mg sublingual 1 tab sublingual PRN P RN Angina 09/02/17 08/04/25 tablet pantoprazole 40 mg tablet,delayed 40 mg PO DAILY 09/0208/04/25 release acetaminophen 650 mg 650 mg PO QID 08/23/2408/04 tablet,extended release famotidine 20 mg tablet 20 mg PO QDAY 08/23/2408/04 aspirin 81 mg chewable tablet 81 mg PO DAILY 08/04/25 08/04/25 calcium 600 mg (as 1 tab PO DAILY 08/04/2507/14 carbonate)-vitamin D3 5 mcg (200 unit) tablet (Calcium 600 + D(3)) duloxetine 60 mg capsule,delayed 60 mg PO DAILY 08/04/25 release levothyroxine 112 mcg tablet 112 mcg PO DAILY 08/04/25 08/04/25 (Synthroid) magnesium 200 mg tablet 200 mg PO DAILY 08/04/25 metoprolol tartrate 25 mg tablet 25 mg PO BID 08/04/25 08/04/25 multivitamin (Daily Multi-Vitamin 1 tab PO DAILY 08/0408/04/25 tablet) ondansetron 4 mg disintegrating 4 mg PO Q6H PRN nausea and vomiting 08/04/25 08/04/25 tablet vitamin B complex (Vitamins B 1 cap PO DAILY 08/04/25 08/04/25 Complex capsule) Allergies Allergies Allergy/AdvReac Type Severity Reaction Status Date / Time No Known Drug Allergies Allergy Verified 08/04/25 12:24 PFSH Active Problems All Active Problems (Updated 08/04/25 @ 16:46 by Tanvi Serrato DNP) Acute metabolic encephalopathy (Acute) Acute UTI (Acute) Sepsis (Acute) Pneumonia (Acute) Lactic acidosis (Acute) Urinary tract infection (Acute) Pneumonia (Acute) Femur fracture, left (Acute) Viral upper respiratory infection (Acute) Medical History Medical History (Updated 08/04/25 @ 16:46 by Tanvi Serrato DNP) Hx of cancer of lung Atrial fibrillation DMII (diabetes mellitus, type 2) Hypothyroidism CHF (congestive heart failure) Coronary artery disease Social History Social History Smoking Status: Unknown if ever smoked If you are a former smoker, when did you quit? (Date/Year): 1984 Number of Years Smoked: 35 Do you dip or chew tobacco?: No Do you vape?: No Patient requests smoking cessation consult: No Initiate information on smoking cessation: No Living arrangement: At home Living Condition: With spouse/s.o. Do you feel safe in your home environment?: Yes History of physical, verbal, emotional, or financial abuse?: No POLST Patient has POLST: No Exam Exam Vital Signs: Vital Signs x48h Temp Pulse Resp BP Pulse Ox O2 Flow Rate 08/04/25 14:35 37.5 C 93 24 75/45 L 92 8 08/04/25 13:34 37.5 C 105 H 82/53 L 94 8 08/04/25 13:24 37.5 C 103 H 79/45 L 95 8 08/04/25 13:03 37.6 C 105 H 86/58 L 95 8 08/04/25 12:54 37.5 C 112 H 82/58 L 95 8 08/04/25 12:53 108 H 26 H 88/56 L 95 8 08/04/25 12:19 36 C L 125 H 29 H 92 Constitutional abnormal general appearance (disheveled), (chronically ill), (appears older than stated age) and (frail appearing), no apparent distress, average body habitus, limitations noted (altered mental status), (behavioral limitations) and (physical limitations) and level of alertness abnormal (obtunded) HENMT normocephalic and head/scalp atraumatic Eyes Left pupil about 1mm larger than right. both round and reactive Chest inspection of chest normal Respiratory auscultation abnormal (diminished breath sound) Gastrointestinal abdomen normal to inspection Genitourinary no CVA tenderness Extremities Bilateral wounds well-approximated and healing from recent femur surgery Neurology no focal motor deficit noted and GCS calculation - Eye opening: To Pain Verbal response: None Motor response: Localizes to Pain Nikita Coma Scale total score: 8 Skin skin color abnormal (pale) Results Vitals Vitals: Vital Signs - 24 hr 08/04/25 12:19 08/04/25 12:53 08/04/25 12:54 Temperature 36 C L 37.5 C Temperature Source Temporal Artery Scan Core Pulse Rate 125 H 108 H 112 H Respiratory Rate 29 H 26 H Blood Pressure 88/56 L 82/58 L O2 Saturation 92 95 95 O2 Source Room air Simple Mask Oxymask If not protocol: Oxygen Flow, liters/minute 8 8 Pain Intensity 5 08/04/25 13:03 08/04/25 13:24 08/04/25 13:34 Temperature 37.6 C 37.5 C 37.5 C Temperature Source Core Core Core Pulse Rate 105 H 103 H 105 H Respiratory Rate Blood Pressure 86/58 L 79/45 L 82/53 L O2 Saturation 95 95 94 O2 Source Oxymask Oxymask Oxymizer If not protocol: Oxygen Flow, liters/minute 8 8 8 Pain Intensity 08/04/25 14:35 Temperature 37.5 C Temperature Source Core Pulse Rate 93 Respiratory Rate 24 Blood Pressure 75/45 L O2 Saturation 92 O2 Source Simple Mask If not protocol: Oxygen Flow, liters/minute 8 Pain Intensity Oxygen O2 Source Simple Mask EKG (time done) 1241: EKG releavant findings:: EKG personally interpreted by author of this note. Relevant findings are: Rate: Rate (enter#) (97) Rhythm: Atrial fibrillation [place]: Normal Other comments: Other comments (Incomplete left bundle branch block with low voltage in the extremity and precordial leads minimal ST elevation in the lateral leads) Computer interpretation: Agree with computer Labs Labs: Laboratory Tests 08/04/25 08/04/25 08/04/25 11:33 12:00 12:18 WBC 7.9 RBC 4.29 Hgb 13.4 Hct 43.6 MCV 101.6 H MCH 31.2 H MCHC 30.7 L RDW 20.1 H Plt Count 293 MPV 9.4 Neut # (Auto) Not Reportable Lymph # (Auto) Not Reportable [place] # (Auto) Not Reportable Eos # (Auto) Not Reportable Baso # (Auto) Not Reportable Absolute Nucleated RBC Not Reportable Total Counted 100 Band Neuts % (Manual) 16 H Reactive Lymphs % (Man) 6 Abnorm Lymph % (Manual) 0 Metamyelocytes % 2 H Nucleated RBC % Not Reportable Neutrophils # (Manual) 6.0 Lymphocytes # (Manual) 1.4 L Monocytes # (Manual) 0.3 Eosinophils # (Manual) 0.0 Basophils # (Manual) 0.0 Differential Comment MANUAL DIFFERENTIAL Platelet Estimate NORMAL (130-450,000) RBC Morph Micro Appear 4+ ANISOCYTOSIS VBG pH 7.173 L* VBG pCO2 23.3 L VBG pO2 43.5 VBG HCO3 8.6 L VBG Total CO2 9.4 L VBG O2 Saturation 56.0 L VBG Base Excess -20.0 L Sodium 134 L Potassium 5.2 H Chloride 95 L Carbon Dioxide 10 L* Anion Gap 29.0 H BUN 33 H Creatinine 1.2 Estimated GFR (MDRD) 42 L Glucose 137 H Lactic Acid Calcium 9.2 Total Bilirubin 0.7 AST 267 H ALT 136 H Alkaline Phosphatase 89 Total Protein 5.3 L Albumin 2.7 L Globulin 2.6 Albumin/Globulin Ratio 1.0 Urine Color Urine Clarity Urine pH Ur Specific [place] Urine Protein Urine Glucose (UA) Urine Ketones Urine Occult Blood Urine Nitrite Urine Bilirubin Urine Urobilinogen Ur Leukocyte Esterase Urine RBC Urine WBC Ur Squamous Epith Cells Urine Bacteria Urine Culture Comments Nasal Adenovirus (PCR) NOT DETECTED Nasal B. parapertussis DNA (PCR) NOT DETECTED Nasal Coronavir 229E PCR NOT DETECTED Nasal Coronavir HKU1 PCR NOT DETECTED Nasal Coronavir NL63 PCR NOT DETECTED Nasal Coronavir OC43 PCR NOT DETECTED Nasal Enterovir/Rhinovir PCR NOT DETECTED Nasal Influenza B PCR NOT DETECTED Nasal Influenza A PCR NOT DETECTED Nasal Parainfluen 1 PCR NOT DETECTED Nasal Parainfluen 2 PCR NOT DETECTED Nasal Parainfluen 3 PCR NOT DETECTED Nasal Parainfluen 4 PCR NOT DETECTED Nasal RSV (PCR) NOT DETECTED Nasal B.pertussis DNA PCR NOT DETECTED Nasal C.pneumoniae (PCR) NOT DETECTED Jimmy Human Metapneumo PCR NOT DETECTED Nasal M.pneumoniae (PCR) NOT DETECTED Nasal SARS-CoV-2 (PCR) NOT DETECTED 08/04/25 08/04/25 12:35 14:49 WBC RBC Hgb Hct MCV MCH MCHC RDW Plt Count MPV Neut # (Auto) Lymph # (Auto) [place] # (Auto) Eos # (Auto) Baso # (Auto) Absolute Nucleated RBC Total Counted Band Neuts % (Manual) Reactive Lymphs % (Man) Abnorm Lymph % (Manual) Metamyelocytes % Nucleated RBC % Neutrophils # (Manual) Lymphocytes # (Manual) Monocytes # (Manual) Eosinophils # (Manual) Basophils # (Manual) Differential Comment Platelet Estimate RBC Morph Micro Appear VBG pH VBG pCO2 VBG pO2 VBG HCO3 VBG Total CO2 VBG O2 Saturation VBG Base Excess Sodium Potassium Chloride Carbon Dioxide Anion Gap BUN Creatinine Estimated GFR (MDRD) Glucose Lactic Acid 9.1 H* Calcium Total Bilirubin AST ALT Alkaline Phosphatase Total Protein Albumin Globulin Albumin/Globulin Ratio Urine Color BROWN Urine Clarity CLOUDY Urine pH 6.5 Ur Specific [place] 1.025 Urine Protein 30 H Urine Glucose (UA) NEGATIVE Urine Ketones NEGATIVE Urine Occult Blood MODERATE H Urine Nitrite NEGATIVE Urine Bilirubin SMALL H Urine Urobilinogen 0.2 (NORMAL) Ur Leukocyte Esterase MODERATE H Urine RBC 11-25 H Urine WBC >25 H Ur Squamous Epith Cells FEW Squamous Urine Bacteria Many H Urine Culture Comments INDICATED Nasal Adenovirus (PCR) Nasal B. parapertussis DNA (PCR) Nasal Coronavir 229E PCR Nasal Coronavir HKU1 PCR Nasal Coronavir NL63 PCR Nasal Coronavir OC43 PCR Nasal Enterovir/Rhinovir PCR Nasal Influenza B PCR Nasal Influenza A PCR Nasal Parainfluen 1 PCR Nasal Parainfluen 2 PCR Nasal Parainfluen 3 PCR Nasal Parainfluen 4 PCR Nasal RSV (PCR) Nasal B.pertussis DNA PCR Nasal C.pneumoniae (PCR) Jimmy Human Metapneumo PCR Nasal M.pneumoniae (PCR) Nasal SARS-CoV-2 (PCR) Rads (name of study) Chest x-ray: Relevant Findings:: Final report received and EMP independent interpretation of test Interpretation: IMPRESSION: Suspect bilateral pneumonia, right greater than left. However, the densities have a masslike appearance. Consider CT chest. Head CT without: Relevant Findings:: Final report received and EMP independent interpretation of test Interpretation: IMPRESSION: No acute intracranial pathology. Age related volume loss, mild small vessel ischemic change, interval lacunar infarction, now chronic. CT angio chest: Relevant Findings:: Final report received and EMP independent interpretation of test Interpretation: IMPRESSION: No pulmonary embolus. Extensive right-sided pneumonia, focal left-sided pneumonia. Large hiatal hernia with likely reflux. Pneumonia may be aspiration pneumonia. CT angio head neck: Relevant Findings:: Final report received and EMP independent interpretation of test Interpretation: IMPRESSION: The entire intracranial arterial vasculature is diffusely diminutive without focal stenosis. No large vessel intracranial arterial occlusion. Extensive circumferential calcifications involving the carotid bifurcations and proximal internal carotid arteries. Question bilateral severe proximal internal carotid artery stenosis. Moderate to severe calcified stenosis of the proximal right subclavian before the origin of the right vertebral artery. The left vertebral artery, which is diffusely diminutive, occludes before the basilar artery, likely chronic. Dense right-sided pneumonia. Comment: Consider nonemergent carotid ultrasound to more fully evaluate the severity of bilateral carotid stenoses. The estimate of stenosis included in the report of the imaging study was calculated using the NASCET method CT abdomen pelvis with: Relevant Findings:: Final report received and EMP independent interpretation of test Interpretation: IMPRESSION: 1. Bilateral pneumonia, large on the right and focal on the left. 2. Large hiatal hernia. 3. A Parada is in place. There is diffuse bladder wall thickening and inflammatory change in the adjacent fat. Recommend correlation with urine studies. PD Medical Decision Making ED course ED course: 85-year-old frail female with significant medical comorbidities including CHF, CAD, atrial fibrillation, diabetes, hypothyroidism, and recent bilateral femur fracture repair (roughly 6 weeks ago) who presented via EMS with acute altered mental status and profound weakness. History was obtained from the patients daughter at bedside, as the patient was obtunded and only arousable to painful stimuli with a GCS of 8. The daughter reported several days of functional decline and weakness, with acute worsening this morning when the patient was found minimally responsive. On arrival, the patient was hypotensive, tachycardic, tachypneic, and hypoxic, concerning for shock. Laboratory evaluation demonstrated severe highanion gap metabolic acidosis with pH 7.17, bicarbonate 8.6, and anion gap of 29, acute kidney injury, transaminitis consistent with hypoperfusion, and left-shifted differential despite a normal WBC count. Urinalysis was grossly abnormal with pyuria, bacteriuria, and hematuria, consistent with urinary tract infection, and chest x-ray showed bilateral infiltrates, right greater than left, concerning for pneumonia. EKG showed atrial fibrillation without acute ischemic changes. Overall presentation was most consistent with severe sepsis with septic shock secondary to pneumonia and UTI, resulting in acute metabolic encephalopathy and multiorgan dysfunction. The patient required supplemental oxygen, aggressive resuscitation, and ICU- level care, and a central line was placed by anesthesiology. The patient is DNR, and this was acknowledged in ongoing management and disposition to the ICU under hospitalist and critical care services. Critical Care Critical Care Provided: Yes Time(min): 90 Time Includes: Direct patient care, Review records, Reassess patient, Document care, Coordinate care, Medical consult, Family consult for tx dec and See progress note Data interpretation: Labs, Pulse ox, Prior EKG and See progress note Procedures included in critical care time: Peripheral IV and Blood draw Discharge Plan Discharge Patient Disposition: [facility] DC/Xfer Clinical Impression: Pneumonia, Sepsis, Acute UTI, Acute metabolic encephalopathy Interventions: ED Admission Assessment Last Done: 08/04/25 15:20 Vitals documented within 30 minutes of discharge?: Yes
[2025-08-04 11:38] LABS: HCT - HEMATOCRIT 43.6 % (37.0-47.0); HGB - HEMOGLOBIN 13.4 g/dL (12.0-16.0); MEAN PLATELET VOLUME 9.4 fL (7.9-10.8); PLT - PLATELET COUNT 293 10^3/uL (130-450); RED CELL DISTRIBUTION WIDTH 20.1 % (12.0-15.0)
--- OUTSIDE RECORDS SUMMARY | 2025-08-04 11:48 | EXTERNAL MEDICAL SUMMARY RPT | Continuity of Care Document ---
Author Organization [facility] Address [address] [place] [id number] Phone Allergies and Intolerances date description facility reaction severity 2024-08-23 10:00 [id number]^No Known Drug Allergies^^No Known Drug Allergies^^allergy.id [facility] (no reaction) (no severity) Problems date description facility 2025-06-16 13:10 Pain in left knee [facility] 2025-06-17 08:02 Pain in left leg [facility] 2025-06-25 12:54 Pain in left leg [facility] Results/Labs test date facility value unit notes Result panel 1 NUCLEATED RED BLOOD CELLS AUTO 2025-06-13 00:41 [facility] 0.0 /100wbc (missing) BASOPHILS # (AUTO) 2025-06-13 00:41 [facility] 0.0 10 3/ul (missing) NRBC ABSOLUTE COUNT (AUTO) 2025-06-13 00:41 [facility] 0.00 x10 3/ul (missing) EOSINOPHILS # (AUTO) 2025-06-13 00:41 [facility] 0.1 10 3/ul (missing) MONOCYTES # (AUTO) 2025-06-13 00:41 [facility] 0.5 10 3/ul (missing) CREATININE 2025-06-13 00:41 [facility] 0.8 mg/dl As of February 2023 testing method has changed, this may include reference ranges. LYMPHOCYTES # (AUTO) 2025-06-13 00:41 [facility] 1.7 10 3/ul (missing) HGB - HEMOGLOBIN 2025-06-13 00:41 [facility] 12.7 g /dl (missing) RED CELL DISTRIBUTION WIDTH 2025-06-13 00:41 [facility] 13.9 % (mi ssing) GLUCOSE 2025-06-13 00:41 [facility] 134 mg/dl As of February 2023 testing method has changed, this may include reference ranges. SODIUM 2025-06-13 00:41 [facility] 134 mmol/l (missing) BUN - BLOOD UREA NITROGEN 2025-06-13 00:41 [facility] 16 mg/dl As of Feb testing method has changed, this may include reference ranges. PLT - PLATELET COUNT 2025-06-13 00:41 [facility] 197 10 3/ul (missing) CARBON DIOXIDE - CO2 2025-06-13 00:41 [facility] 28 mmol/l As of February 2023 testing method has changed, this may include reference ranges. NEUTROPHILS # (AUTO) 2025-06-13 00:41 [facility] 3.0 10 3/ul (missing) MEAN CORPUSCULAR HEMOGLOBIN 2025-06-13 00:41 [facility] 30.2 pg (missing) MEAN CORPUSCULAR HGB CONC 2025-06-13 00:41 [facility] 33.1 g/dl (missing) HCT - HEMATOCRIT 2025-06-13 00:41 [facility] 38.4 % (missing) RED BLOOD COUNT 2025-06-13 00:41 [facility] 4.21 10 6/ul (missing) POTASSIUM 2025-06-13 00:41 [facility] 4.3 mmol/l As of February 2023 testing method has changed, this may include reference ranges. WHITE BLOOD COUNT 2025-06-13 00:41 [facility] 5.4 x10 3/ul (missing) GFR - MDRD 2025-06-13 00:41 [facility] 68 (missin g) The IDMS-traceable MDRD Study Equation has been validated extensively in and populations between the ages of 18 and 70 with impaired kidney function (eGFR < 60 mL/min/1.73m2) and has shown good performance for patients with all common causes of kidney disease. Although this equation has not been validated for patients older than 70, an MDRD-derived eGFR may still be a useful tool for providers caring for patients older than 70. References: http://www.nkdep.n ih.gov/lab-evaluat ion/gfr/creatinine -stand ardization, last updated October 2011. ANION GAP 2025-06-13 00:41 [facility] 7.0 (missing ) (missing) CALCIUM 2025-06-13 00:41 [facility] 8.6 mg/dl As of February 2023 testing method has changed, this may include reference ranges. MEAN PLATELET VOLUME 2025-06-13 00:41 [facility] 8.9 fl (missing) MEAN CORPUSCULAR VOLUME 2025-06-13 00:41 [facility] 91.2 fl (missing) CHLORIDE 2025-06-13 00:41 [facility] 99 mmol/l As of February 2023 testing method has changed, this may include reference ranges. Social History date description facility
[2025-08-04 11:52] LABS: ABNORMAL LYMPHS % (MANUAL) 0 %; BASOPHILS # (MANUAL) 0.0 10^3/uL (0-0.1); EOSINOPHILS # (MANUAL) 0.0 10^3/uL (0-0.7)
[2025-08-04 12:13] LABS: CARBON DIOXIDE - CO2 10.0 mmol/L (21-32)
[2025-08-04 12:15] LABS: BUN - BLOOD UREA NITROGEN 33.0 mg/dL (6-20); CREATININE 1.2 mg/dL (0.6-1.3); GFR - MDRD 42.0 (>89)
[2025-08-04 12:23] LABS: BAND NEUTROPHILS % (MANUAL) 16 %; LYMPHOCYTES # (MANUAL) 1.4 10^3/uL (1.5-3.5); LYMPHOCYTES % (MANUAL) 12 %; METAMYELOCYTES % (MANUAL) 2 %; MONOCYTES # (MANUAL) 0.3 10^3/uL (0.0-1.0); NEUTROPHILS # (MANUAL) 6.0 10^3/uL (1.5-6.6); PLATELET ESTIMATE, MANUAL NORMAL (130-450,000) (NORMAL); RBC MORPHOLOGY (MULTIPLE) 4+ ANISOCYTOSIS (NORMAL); REACTIVE LYMPHS % (MANUAL) 6 %
[2025-08-04 12:38] LABS: VBG BASE EXCESS -20.0 mmol/L (-2 - +2); VBG PCO2 23.3 mmHg (41-51); VBG PO2 43.5 mmHg (25-47); VBG TOTAL CO2 9.4 mmol/L (24-29)
[2025-08-04 12:40] LABS: VBG PH 7.173 (7.31-7.41)
--- NOTE | 2025-08-04 12:42 | XRAY Report ---
PROCEDURE: XR Chest 1V INDICATIONS: Sepsis TECHNIQUE: One view of the chest was acquired. COMPARISON: None. FINDINGS: Surgical changes and devices: None. Lungs and pleura: Question bilateral masslike areas of consolidation, right greater than left versus bilateral pulmonary masses. Mediastinum: Mediastinal contours appear normal. Heart size is normal. Bones and chest wall: No suspicious bony lesions. Overlying soft tissues appear unremarkable. IMPRESSION: Suspect bilateral pneumonia, right greater than left. However, the densities have a masslike appearance. Consider CT chest. Reviewed by: Carlo Borreor MD on 08/04/2025 12:39 PM PST Approved by: Carlo Borrero MD on 08/04/2025 12:39 PM PST Station ID: [id number]
[2025-08-04] MEDS: CEFEPIME 2 GM VIAL IVP STA (12:43)
[2025-08-04 12:49] LABS: ALT ALANINE AMINOTRANSFERASE 136.0 IU/L (10-60); AST ASPARTATE AMINOTRANSFERASE 267.0 IU/L (10-42)
[2025-08-04] MEDS: SODIUM CHLORIDE 0.9% 1,000 ML IV STA ×2 (12:59→13:47)
[2025-08-04] MEDS: SODIUM CHLORIDE 0.9% 500 ML IV ONE (13:00)
[2025-08-04] MEDS: VANCOMYCIN INJ 1 GM, VANCOMYCIN INJ 250 MG in SODIUM CHLORIDE 0.9% 250 ML IV STA (13:01)
[2025-08-04 13:14] LABS: KETONES,URINE (UA) NEGATIVE (NEGATIVE); OCCULT BLOOD,URINE MODERATE (NEGATIVE)
[2025-08-04 13:15] LABS: GLUCOSE, URINE (UA) NEGATIVE (NEGATIVE)
[2025-08-04 13:22] LABS: CORONAVIRUS 229E-RESP PCR NOT DETECTED; CORONAVIRUS HKU1-RESP PCR NOT DETECTED; CORONAVIRUS NL63-RESP PCR NOT DETECTED; CORONAVIRUS OC43-RESP PCR NOT DETECTED; HUMAN METAPNEUMOVIRUS NOT DETECTED; INFLUENZA A- RESP PCR PANEL NOT DETECTED; RHINOVIRUS/ENTEROVIRUS NOT DETECTED; SARS-CoV-2 -RESP PCR PANEL NOT DETECTED
[2025-08-04 13:23] LABS: B. PARAPERTUSSIS- RESP PCR PAN NOT DETECTED; B. PERTUSSIS- RESP PCR PANEL NOT DETECTED; C. PNEUMONIAE- RESP PCR PANEL NOT DETECTED; INFLUENZA B - RESP PCR PANEL NOT DETECTED; M. PNEUMONIAE- RESP PCR PANEL NOT DETECTED; PARAINFLUENZA VIRUS 1 NOT DETECTED; PARAINFLUENZA VIRUS 2 NOT DETECTED; PARAINFLUENZA VIRUS 4 NOT DETECTED; RSV- RESP PCR PANEL NOT DETECTED
[2025-08-04 13:28] LABS: SQUAMOUS EPITHELIAL CELL,UR FEW Squamous (<= Few)
--- NOTE | 2025-08-04 13:54 | CT Report ---
PROCEDURE: CT Abdomen/Pelvis W INDICATIONS: AMS, SEPTIC? CONTRAST: [id number] 100ML TECHNIQUE: After the administration of intravenous contrast, a CT scan of the abdomen and pelvis was performed. Images were recorded and evaluated at appropriate window settings. Reformats: coronal and sagittal. For radiation dose reduction, the following was used: automated exposure control, adjustment of mA and/or kV according to patient size. COMPARISON: CT abdomen and pelvis dated 09/15/2019, CT chest from today FINDINGS: Image quality: Diagnostic. Lower chest: Dense pneumonia, right lower lobe. Focal pneumonia, superior segment of left lower lobe. Mild cardiomegaly. Left atrial appendage occlusion device. Severe coronary artery calcifications. Large hiatal hernia. Liver: No solid mass. Gallbladder: Absent Biliary tree: No intrahepatic or extrahepatic dilation, accounting for age. Spleen: No splenomegaly. Pancreas: No pancreatic ductal dilation. Adrenals: No adrenal nodule. Kidneys and ureters: No hydronephrosis. No renal cystic lesion which requires follow up. No solid mass. Stomach, bowel and peritoneum: No gastric or small bowel dilation. No abnormal wall thickening. No pathologic free fluid. Diverticulosis. This is relatively advanced in the sigmoid. No acute diverticulitis identified. Lymph nodes: No central or retroperitoneal adenopathy. Vessels: No infrarenal aortic aneurysm. Patent portal vein. PELVIS Reproductive organs: Unremarkable. Bladder: A Parada catheter is in place. The bladder wall is thickened and there is minimal inflammatory change in the adjacent fat. Pelvic lymph nodes: No pelvic adenopathy by size criteria. Bones: No aggressive osseous abnormality. Lumbar degenerative change.. Other: Fat-containing right inguinal hernia. IMPRESSION: 1. Bilateral pneumonia, large on the right and focal on the left. 2. Large hiatal hernia. 3. A Parada is in place. There is diffuse bladder wall thickening and inflammatory change in the adjacent fat. Recommend correlation with urine studies. Reviewed by: Carlo Borrero MD on 08/04/2025 1:50 PM PST Approved by: Carlo Borrero MD on 08/04/2025 1:50 PM PST Station ID: [id number]
--- NOTE | 2025-08-04 13:57 | CT Report ---
PROCEDURE: CT Angio Chest INDICATIONS: SOA, r/o PE, recent surgery CONTRAST: [id number] 100ML TECHNIQUE: After the administration of intravenous contrast images of the chest were acquired. 3-dimensional coronal oblique maximum intensity projection (MIP) reformats, axial MIP, and coronal and sagittal MPR reformats were then performed through the chest. For radiation dose reduction, the following was used: automated exposure control, adjustment of mA and/or kV according to patient size. COMPARISON: CT abdomen and pelvis from the same date FINDINGS: Image quality: Excellent. Large vessels: No acute pulmonary emboli. Study is timed to evaluate pulmonary tree. Well-opacified aorta without aneurysm or dissection. Classic three-vessel arch anatomy. Great vessel origins are patent. Moderate proximal right subclavian artery stenosis. Lungs and pleura: Large dense pneumonia of the right lower lobe with consolidation of almost all of the right lower lobe. There is patchy airspace consolidation in the right upper lobe as well, predominantly in the posterior segment. There is dense consolidation in the superior segment of the left lower lobe with patchy minimal infiltrate in the basilar segments. No pleural effusions. No pneumothorax. No suspicious pulmonary nodules which require follow up. Mediastinum: Heart size is normal. No pericardial effusion. No large vessel abnormality. No mediastinal adenopathy by size criteria. Large hiatal hernia. Esophagus is dilated with fluid in its distal aspect. Chest wall and lower neck: Thyroid is unremarkable. No axillary or supraclavicular adenopathy by size. Bones: No aggressive osseous abnormality. Upper Abdomen: Unremarkable. IMPRESSION: No pulmonary embolus. Extensive right-sided pneumonia, focal left-sided pneumonia. Large hiatal hernia with likely reflux. Pneumonia may be aspiration pneumonia. Reviewed by: Carlo Borrero MD on 08/04/2025 1:54 PM PST Approved by: Carlo Borrero MD on 08/04/2025 1:54 PM PST Station ID: [id number]
--- NOTE | 2025-08-04 14:04 | CT Report ---
PROCEDURE: CT Head WO INDICATIONS: AMS pupil assymetry TECHNIQUE: CT of the head was performed, without intravenous contrast. Reformats: Coronal and sagittal. For radiation dose reduction, the following was used: automated exposure control, adjustment of mA and/or kV according to patient size. COMPARISON: 02/28/2023 FINDINGS: Image quality: Diagnostic. CSF spaces: Basal cisterns are patent. No extra-axial fluid collections. Ventricles are normal in size and shape. Brain: No midline shift. No intracranial mass effect or hemorrhage. Green- white matter interface is normal. Age appropriate volume loss and mild, age- appropriate periventricular white matter hypoattenuation, likely chronic ischemic change. Interval development of a focal left periventricular lacunar infarction, now chronic. Skull and face: Calvarium and visualized facial bones are intact, without suspicious lesions. Sinuses: Visualized sinuses and mastoids are clear. IMPRESSION: No acute intracranial pathology. Age related volume loss, mild small vessel ischemic change, interval lacunar infarction, now chronic. Reviewed by: Carlo Borrero MD on 08/04/2025 2:00 PM PST Approved by: Carlo Borrero MD on 08/04/2025 2:00 PM PST Station ID: [id number]
--- NOTE | 2025-08-04 14:28 | CT Report ---
PROCEDURE: CT Angio Head/Neck INDICATIONS: AMS CONTRAST: [id number] 100ML TECHNIQUE: After the administration of intravenous contrast, images were acquired from the aortic arch through the [place]. 3-dimensional svmcfky-nuzsunyey-lmahlshdpf (MIP) and volume rendering reformats were acquired of the central intracranial vasculature and neck separately. COMPARISON: CT head from the same date. FINDINGS: Image quality: Diagnostic. Cerebral CT Angiogram: Internal carotid arteries: No acute findings. Intracranial ICA are patent with no significant stenosis. No occlusion. No aneurysm. Anterior cerebral arteries: Diffusely diminutive. No focal stenosis or occlusion. No occlusion. No aneurysm. Middle cerebral arteries: Diffusely diminutive. No focal stenosis or occlusion. No aneurysm. Posterior cerebral arteries: Diffusely diminutive. No focal stenosis or occlusion. No aneurysm. Basilar artery: Diffusely diminutive. No focal stenosis or occlusion. No aneurysm. Vertebral arteries: The left vertebral artery is diffusely diminutive from its origin. It may occlude before the basilar artery, likely chronic. The right vertebral artery is dominant. There are multiple calcific plaques present within its course. Dural venous sinuses: Unremarkable given phase of enhancement. Other: Arterial phase appearance of the brain parenchyma is unremarkable. Neck CT Angiogram: Internal carotid arteries: Circumferential dense calcifications at the carotid bifurcations and extending into the proximal internal carotid arteries. There is extensive blooming artifact. Question bilateral severe proximal internal carotid artery stenosis. Common carotid arteries: Unremarkable. No significant stenosis. No dissection or occlusion. External carotid arteries: Unremarkable. No occlusion. Vertebral arteries: The left vertebral artery is diffusely diminutive from its origin. It may occlude before the basilar artery, likely chronic. The right vertebral artery is dominant. There are multiple calcific plaques present within its course. Aortic Arch and Mediastinum: Partially visualized aortic arch unremarkable without evidence of aneurysm. Origins of the great vessels unremarkable. Moderate to severe proximal right subclavian artery calcified stenosis. Other: Dense right-sided pneumonia. IMPRESSION: The entire intracranial arterial vasculature is diffusely diminutive without focal stenosis. No large vessel intracranial arterial occlusion. Extensive circumferential calcifications involving the carotid bifurcations and proximal internal carotid arteries. Question bilateral severe proximal internal carotid artery stenosis. Moderate to severe calcified stenosis of the proximal right subclavian before the origin of the right vertebral artery. The left vertebral artery, which is diffusely diminutive, occludes before the basilar artery, likely chronic. Dense right-sided pneumonia. Comment: Consider nonemergent carotid ultrasound to more fully evaluate the severity of bilateral carotid stenoses. The estimate of stenosis included in the report of the imaging study was calculated using the NASCET method Reviewed by: Carlo Borrero MD on 08/04/2025 2:24 PM PST Approved by: Carlo Borrero MD on 08/04/2025 2:24 PM PST Station ID: [id number]
--- NOTE | 2025-08-04 14:49 | HISTORY & PHYSICAL EXAMINATION ---
Chief Complaint Chief Complaint Chief Complaint: Altered mental status History of Present Illness Admitted From Admitted From:: Home History Obtained From Records Reviewed: EMR History obtained from: Patient's daughter Exam Limitations: Patient unresponsive History of Present Illness HPI Comment/Other: Patient is a 85-year-old female with a history of hypothyroidism, hypertension who has had a progressive decline since a fall about 8 weeks ago. She was recently admitted to [place] and underwent surgery for angulated displaced comminuted distal femoral fracture. After this, she was admitted to rehab, and then was sent home with home health. Daughter is at bedside, and states that she noticed progressive decline over the last few days. She was unresponsive, not eating or drinking anything. She did not complain of any fevers or chills. She did not complain of any abdominal pain or urinary symptoms either. Patient is responsive to verbal stimuli, and turns towards voice but is unable to respond meaningfully past that. In the ER, patient was hypotensive despite 3 L of IV fluid resuscitation. Central line was placed and she was started on Levophed. She has been tachycardic with heart rate ranging from 90-1 03. She has been afebrile. She is tachypneic with respiratory rate between 20-30. She saturating 94% on 10 L at this time. Lab work was reviewedshe has no leukocytosis, she does have a severe metabolic acidosis with a high anion gap, a lactic acid of 9.1. Urinalysis is positive for infection. Respiratory viral panel is negative. Chest x-ray is reviewed. Abdomen/pelvis CT shows bilateral pneumonia, large on the right and focal on the left. Diffuse bladder wall thickening inflammatory changes are also noted. No pulmonary embolus is noted. Large hiatal hernia is noted with likely reflux. Head CT is negative. CTA does show calcification of right subclavian. She was started on broad-spectrum antibiotics and admitted for septic shock. Past medical history includes GERD, diabetes, hypothyroidism, hypertension. Medications include atorvastatin, aspirin, levothyroxine, metoprolol, Protonix. She has no known drug allergies Surgical history includes recent orthopedic surgery at [place]. Daughter states he does not drink, smoke, or use any recreational drugs. Prior to the fracture, she was conversive, able to engage in conversation, and largely active. Goals of care were discussed with the daughter, Rey is okay with vasopressors and central line placement, however, she states that patient is a DO NOT RESUSCITATE and DO NOT INTUBATE. She understands that her mother is critically ill at this time. Meds/Allgy Home Medications Ambulatory Orders Medication Instructions Recorded Confirmed folic acid 1 mg tablet 1 mg PO DAILY 09/05/1408/04 metformin 500 mg tablet 500 mg PO BID 09/05/1408/04 nitroglycerin 0.4 mg sublingual 1 tab sublingual PRN P RN Angina 09/02/17 08/04/25 tablet pantoprazole 40 mg tablet,delayed 40 mg PO DAILY 09/0208/04/25 release acetaminophen 650 mg 650 mg PO QID 08/23/2408/04 tablet,extended release famotidine 20 mg tablet 20 mg PO DAILY 08/23/2407/14 albuterol sulfate 90 mcg/actuation 2 puff inhalation Q 4H PRN 08/04/25 08/04/25 aerosol inhaler shortness of breath or wheez ing aspirin 81 mg chewable tablet 81 mg PO DAILY 08/04/25 08/04/25 atorvastatin 10 mg tablet 10 mg PO DAILY 08/04/2507/14 calcium 600 mg (as 1 tab PO DAILY 08/04/2507/14 carbonate)-vitamin D3 5 mcg (200 unit) tablet (Calcium 600 + D(3)) duloxetine 60 mg capsule,delayed 60 mg PO DAILY 08/04/25 release levothyroxine 112 mcg tablet 112 mcg PO DAILY 08/04/25 08/04/25 (Synthroid) magnesium 200 mg tablet 200 mg PO DAILY 08/04/25 metoprolol tartrate 25 mg tablet 25 mg PO BID 08/04/25 08/04/25 multivitamin (Daily Multi-Vitamin 1 tab PO DAILY 08/0408/04/25 tablet) ondansetron 4 mg disintegrating 4 mg PO Q6H PRN nausea and vomiting 08/04/25 08/04/25 tablet vitamin B complex (Vitamins B 1 cap PO DAILY 08/04/25 08/04/25 Complex capsule) Allergies Allergies Allergy/AdvReac Type Severity Reaction Status Date / Time No Known Drug Allergies Allergy Verified 08/04/25 12:24 PFSH Active Problems All Active Problems (Updated 08/04/25 @ 16:57 by Oswaldo Cohen MD) Acute hypoxic respiratory failure (Acute) Acute metabolic encephalopathy (Acute) Acute UTI (Acute) Sepsis (Acute) Pneumonia (Acute) Lactic acidosis (Acute) Urinary tract infection (Acute) Pneumonia (Acute) Femur fracture, left (Acute) Viral upper respiratory infection (Acute) Medical History Medical History (Updated 08/04/25 @ 16:57 by Oswaldo Cohen MD) Hx of cancer of lung Atrial fibrillation DMII (diabetes mellitus, type 2) Hypothyroidism CHF (congestive heart failure) Coronary artery disease Social History Social History (Updated 08/04/25 @ 16:46 by Tanvi Serrato DNP) Smoking Status: Unknown if ever smoked If you are a former smoker, when did you quit? (Date/Year): 1984 Number of Years Smoked: 35 Do you dip or chew tobacco?: No Do you vape?: No Patient requests smoking cessation consult: No Initiate information on smoking cessation: No Living arrangement: At home Living Condition: With spouse/s.o. Level: Dependent Home Mobility Equipment: Wheeled walker, Wheelchair and Lift Do you feel safe in your home environment?: Yes (unobtainable) History of physical, verbal, emotional, or financial abuse?: No (unobtainable) Substance Use: denies use POLST Patient has POLST: No Review of Systems Status of ROS: unobtainable due to medical condition and unobtainable due to mental status Exam Exam Vital Signs: Vital Signs x48h Temp Pulse Pulse Resp BP BP BP 08/04/25 18:00 98.6 F 110 H 33 H 110/67 08/04/25 17:00 98.8 F 106 H 36 H 61/52 L 08/04/25 16:00 98.4 F 106 H 33 H 115/77 08/04/25 15:47 98.6 F 95 35 H 84/53 L 08/04/25 14:35 99.5 F 93 24 75/45 L 08/04/25 13:34 99.5 F 105 H 82/53 L 08/04/25 13:24 99.5 F 103 H 79/45 L 08/04/25 13:03 99.7 F 105 H 86/58 L 08/04/25 12:54 99.5 F 112 H 82/58 L 08/04/25 12:53 108 H 26 H 88/56 L 08/04/25 12:19 96.8 F L 125 H 29 H BP Pulse Ox O2 Flow Rate 08/04/25 18:00 102/64 90 L 08/04/25 17:00 105/61 93 14 08/04/25 16:00 94 10 08/04/25 15:47 90 L 10 08/04/25 14:35 92 8 08/04/25 13:34 94 8 08/04/25 13:24 95 8 08/04/25 13:03 95 8 08/04/25 12:54 95 8 08/04/25 12:53 95 8 08/04/25 12:19 92 Constitutional abnormal general appearance (disheveled), (chronically ill), (lethargic), (appears older than stated age) and (frail appearing), distress noted (moderate) and (respiratory), abnormal body habitus (thin) and (underweight), limitations noted (altered mental status) and level of alertness abnormal Frail appearing, older than stated age, pale. Turns towards voice, but unable to interact meaningfully beyond that. HENMT normocephalic, head/scalp atraumatic and hearing grossly normal bilaterally Eyes EOMs intact bilaterally and conjunctivae normal Neck/C-Spine visual inspection normal Chest inspection of chest normal Respiratory breath sounds equal bilaterally, no wheezes and no rales Coarse breath sounds, diffuse rhonchi, right worse than left. Diminished air entry bilaterally. Some accessory muscle use, mild to moderate respiratory distress noted on 10 L. Cardiovascular heart rate abnormal (tachycardic), regular rhythm noted and no gallop Gastrointestinal abdomen normal to inspection, abdomen soft to palpation, nontender to palpation and normoactive bowel sounds Genitourinary no CVA tenderness Extremities normal to inspection, normal to palpation and no tenderness Neurology no focal motor deficit noted Psychiatry mental status abnormal (somnolent), orientation abnormal (disoriented to person), (disoriented to place) and (disoriented to time), thought process abnormality noted (confused) and affect normal Skin skin color abnormal (pale) Conclusion/Plan Problem List (1) Septic shock: (2) Pneumonia: (3) Urinary tract infection: Plan: Patient presented with lethargy, altered mental status. Found to be in septic shock with lactic acid 9.1. Despite appropriate IV fluid resuscitation, patient still required vasopressor support. Central line and arterial line placed by [employer], started on Levophed. Patient is also tachypneic, and tachycardic. UA grossly positive for infection, CTA with extensive right-sided pneumonia. Continue broad-spectrum antibiotic at this time with Zosyn and vancomycin. Blood cultures ordered. Goals of care discussion with daughter at bedsidesoniae is DNR, DNR, but she is okay with full medical management including vasopressor support. (4) Lactic acidosis: Plan: High anion gap metabolic acidosis, as well as lactic acidosis is likely due to hypoperfusion in setting of septic shock. Continue gentle IV fluid rehydration. Per patient's history, she may have a history of heart failure. Continue close monitoring of respiratory status with IV fluids. (5) Acute hypoxic respiratory failure: Plan: Likely multifactorial secondary to pneumonia, as well as fluids in setting of aggressive fluid resuscitation. Currently requiring 10 L of oxygen, continue to wean as tolerated. (6) DMII (diabetes mellitus, type 2): Plan: Contiune low dose sliding scale. (7) Hypothyroidism: Plan: Resume levothyroxine when able to swallow. (8) CHF (congestive heart failure): Plan: Unclear ejection fraction. ECHO ordered, pending. Hold further IVF at this time due to fluid overload. Lab Results Lab results reviewed: Yes 08/04/25 11:33 08/04/25 17:24 Diagnostic Imaging Results Diagnostic Imaging Results: positive Final report reviewed EKG Results EKG Interpreted Independently: Yes Core Measures Anticipated LOS I expect patient to be DC'd or transferred within 96 hours.: Yes Issues Hospital Issues and Management Plan: None anticipated. DVT/VTE - Prophylaxis VTE/DVT Device ordered at admit?: No VTE/DVT Prophylaxis med ordered at admit?: Yes
--- OUTSIDE RECORDS SUMMARY | 2025-08-04 15:23 | EXTERNAL MEDICAL SUMMARY RPT | Continuity of Care Document ---
Author Organization [facility] Address [address] [place] [id number] Phone Allergies and Intolerances date description facility reaction severity 2024-08-23 10:00 [id number]^No Known Drug Allergies^^No Known Drug Allergies^^allergy.id [facility] (no reaction) (no severity) 2025-08-04 10:00 [id number]^No Known Drug Allergies^^No Known Drug Allergies^^allergy.id [facility] (no reaction) (no severity) Problems date description facility 2025-06-16 13:10 Pain in left knee [facility] 2025-06-17 08:02 Pain in left leg [facility] 2025-06-25 12:54 Pain in left leg [facility] Results/Labs test date facility value unit notes Result panel 1 NUCLEATED RED BLOOD CELLS AUTO 2025-06-13 00:41 [facility] 0.0 /100wbc (missing) BASOPHILS # (AUTO) 2025-06-13 00:41 [facility] 0.0 10 3/ul (missing) NRBC ABSOLUTE COUNT (AUTO) 2025-06-13 00:41 [facility] 0.00 x10 3/ul (missing) EOSINOPHILS # (AUTO) 2025-06-13 00:41 [facility] 0.1 10 3/ul (missing) MONOCYTES # (AUTO) 2025-06-13 00:41 [facility] 0.5 10 3/ul (missing) CREATININE 2025-06-13 00:41 [facility] 0.8 mg/dl As of February 2023 testing method has changed, this may include reference ranges. LYMPHOCYTES # (AUTO) 2025-06-13 00:41 [facility] 1.7 10 3/ul (missing) HGB - HEMOGLOBIN 2025-06-13 00:41 [facility] 12.7 g /dl (missing) RED CELL DISTRIBUTION WIDTH 2025-06-13 00:41 [facility] 13.9 % (mi ssing) GLUCOSE 2025-06-13 00:41 [facility] 134 mg/dl As of February 2023 testing method has changed, this may include reference ranges. SODIUM 2025-06-13 00:41 [facility] 134 mmol/l (missing) BUN - BLOOD UREA NITROGEN 2025-06-13 00:41 [facility] 16 mg/dl As of Feb testing method has changed, this may include reference ranges. PLT - PLATELET COUNT 2025-06-13 00:41 [facility] 197 10 3/ul (missing) CARBON DIOXIDE - CO2 2025-06-13 00:41 [facility] 28 mmol/l As of February 2023 testing method has changed, this may include reference ranges. NEUTROPHILS # (AUTO) 2025-06-13 00:41 [facility] 3.0 10 3/ul (missing) MEAN CORPUSCULAR HEMOGLOBIN 2025-06-13 00:41 [facility] 30.2 pg (missing) MEAN CORPUSCULAR HGB CONC 2025-06-13 00:41 [facility] 33.1 g/dl (missing) HCT - HEMATOCRIT 2025-06-13 00:41 [facility] 38.4 % (missing) RED BLOOD COUNT 2025-06-13 00:41 [facility] 4.21 10 6/ul (missing) POTASSIUM 2025-06-13 00:41 [facility] 4.3 mmol/l As of February 2023 testing method has changed, this may include reference ranges. WHITE BLOOD COUNT 2025-06-13 00:41 [facility] 5.4 x10 3/ul (missing) GFR - MDRD 2025-06-13 00:41 [facility] 68 (missin g) The IDMS-traceable MDRD Study [...] updated October 2011. ANION GAP 2025-06-13 00:41 [facility] 7.0 (missing ) (missing) CALCIUM 2025-06-13 00:41 [facility] 8.6 mg/dl As of February 2023 testing method has changed, this may include reference ranges. MEAN PLATELET VOLUME 2025-06-13 00:41 [facility] 8.9 fl (missing) MEAN CORPUSCULAR VOLUME 2025-06-13 00:41 [facility] 91.2 fl (missing) CHLORIDE 2025-06-13 00:41 [facility] 99 mmol/l As of February 2023 testing method has changed, this may include reference ranges. Result panel 2 ABNORMAL LYMPHS % (MANUAL) 2025-08-04 11:33 [facility] 0 % (missing) BASOPHILS # (MANUAL) 2025-08-04 11:33 [facility] 0.0 10 3/ul (missing) EOSINOPHILS # (MANUAL) 2025-08-04 11:33 [facility] 0.0 10 3/ul (missing) MONOCYTES # (MANUAL) 2025-08-04 11:33 [facility] 0.3 10 3/ul (missing) BILIRUBIN,TOTAL 2025-08-04 11:33 [facility] 0.7 mg/dl As of February 2023 testing method has changed, this may include reference ranges. ALBUMIN/GLOBULIN RATIO 2025-08-04 11:33 [facility] 1.0 (roseline ng) (missing) CREATININE 2025-08-04 11:33 [facility] 1.2 mg/dl As of February 2023 testing method has changed, this may include reference ranges. LYMPHOCYTES # (MANUAL) 2025-08-04 11:33 [facility] 1.4 10 3/ul (missing) CARBON DIOXIDE - CO2 2025-08-04 11:33 [facility] 10 mmol/l Critical result CO2 10 mmol/L called to and read back by Madhuri Downs RN/ED at 04-Aug-2025 12:12 by Stefania. As of February 2023 testing method has changed, this may include reference ranges. TOTAL CELLS COUNTED 2025-08-04 11:33 [facility] 100 ([facility]) (missing) MEAN CORPUSCULAR VOLUME 2025-08-04 11:33 [facility] 101.6 fl (missing) HGB - HEMOGLOBIN 2025-08-04 11:33 [facility] 13.4 g/dl (missing) SODIUM 2025-08-04 11:33 [facility] 134 mmol/l (missing) ALT ALANINE AMINOTRANSFERASE 2025-08-04 11:33 [facility] 136 iu/l As of February 2023 testing method has changed, this may include reference ranges. GLUCOSE 2025-08-04 11:33 [facility] 137 mg/dl As of February 2023 testing method has changed, this may include reference ranges. BAND NEUTROPHILS % (MANUAL) 2025-08-04 11:33 [facility] 16 % (missing) METAMYELOCYTES % (MANUAL) 2025-08-04 11:33 [facility] 2 % (missing) GLOBULIN 2025-08-04 11:33 [facility] 2.6 g/dl (missing) ALBUMIN 2025-08-04 11:33 [facility] 2.7 g/dl As of February 2023 testing method has changed, this may include reference ranges. RED CELL DISTRIBUTION WIDTH 2025-08-04 11:33 [facility] 20.1 % (missing) AST ASPARTATE AMINOTRANSFERASE 2025-08-04 11:33 [facility] 267 iu/l As of February 2023 testing method has changed, this may include reference ranges. ANION GAP 2025-08-04 11:33 [facility] 29.0 ([facility]) (missing) PLT - PLATELET COUNT 2025-08-04 11:33 [facility] 293 10 3/ul (missing) MEAN CORPUSCULAR HGB CONC 2025-08-04 11:33 [facility] 30.7 g/dl (missing) MEAN CORPUSCULAR HEMOGLOBIN 2025-08-04 11:33 [facility] 31.2 pg (missing) BUN - BLOOD UREA NITROGEN 2025-08-04 11:33 [facility] 33 mg/dl As of February 2023 testing method has changed, this may include reference ranges. RBC MORPHOLOGY (MULTIPLE) 2025-08-04 11:33 [facility] 4+ ANISOCYTOSIS (roseline ng) (missing) RED BLOOD COUNT 2025-08-04 11:33 [facility] 4.29 10 6/ul (missing) GFR - MDRD 2025-08-04 11:33 [facility] 42 ([facility]) The IDMS-traceable MDRD Study Equation has been [...] caring for patients older than 70. References: http://www.nkde p.nih.gov/lab-e valuation/gfr/c reatinine-stand ardization, last updated October 2011. HCT - HEMATOCRIT 2025-08-04 11:33 [facility] 43.6 % (missing) POTASSIUM 2025-08-04 11:33 [facility] 5.2 mmol/l As of February 2023 testing method has changed, this may include reference ranges. TOTAL PROTEIN 2025-08-04 11:33 [facility] 5.3 g/dl As of February 2023 testing method has changed, this may include reference ranges. REACTIVE LYMPHS % (MANUAL) 2025-08-04 11:33 [facility] 6 % (missing) NEUTROPHILS # (MANUAL) 2025-08-04 11:33 [facility] 6.0 10 3/ul (missing) WHITE BLOOD COUNT 2025-08-04 11:33 [facility] 7.9 x10 3/ul (missing) ALKALINE PHOSPHATASE 2025-08-04 11: [facility] 89 iu/l As of February 2023 testing method has changed, this may include reference ranges. CALCIUM 2025-08-04 11:33 [facility] 9.2 mg/dl As of February 2023 testing method has changed, this may include reference ranges. MEAN PLATELET VOLUME 2025-08-04 11:33 [facility] 9.4 fl (missing) CHLORIDE 2025-08-04 11:33 [facility]/l As of February 2023 testing method has changed, this may include reference ranges. DIFFERENTIAL COMMENT 2025-08-04 11:33 [facility] MANUAL DIFFERENTIAL (roseline ng) (missing) PLATELET ESTIMATE, MANUAL 2025-08-04 11:33 [facility] NORMAL (130-450,000) (roseline ng) (missing) Result panel 3 SARS-CoV-2 -RESP PCR PANEL 2025-08-04 12:00 [facility] NOT DETECTED (missing) A negative test result for this test indicates that SARS-CoV-2 RNA was not present in the specimen above the limit of detection. Testing performed on the [employer] RP2.1 Panel, a multiplexed nucleic acid repiratory panel. Negative results do not preclude infection with SARS-CoV-2 virus and should not be the sole basis of a patient management decision. In some patients repeat testing at various time points may be necessary for virus detection. False-negative results may arise from improper sample collection, degradation of viral RNA during shipping or storage, the presence of PCR inhibitors, and/or mutation in the SARS-CoV-2 virus. INFLUENZA A- RESP PCR PANEL 2025-08-04 12:00 [facility] NOT DETECTED (missing) Influenza A including subtypes H1, H3, and H1-2009 not detected by the [employer] RP2.1 Panel, a multiplexed nucleic acid test intended for the simultaneous qualitative detection and differentiation of nucleic acids from multiple viral and bacterial respiratory organisms. B. PARAPERTUSSIS- RESP PCR CAPUTO 2025-08-04 12:00 [facility] NOT DETECTED (missing) Negative results for this organism do not preclude infection with this organism and may require additional laboratory testing (e.g., bacterial and viral culture, immunofluorescence, and radiography) when evaluating a patient with possible respiratory tract infection. B. PERTUSSIS- RESP PCR PANEL 2025-08-04 12: [facility] NOT DETECTED (missing) Negative results for this organism do not preclude infection with this organism and may require additional laboratory testing (e.g., bacterial and viral culture, immunofluorescence, and radiography) when evaluating a patient with possible respiratory tract infection. C. PNEUMONIAE- RESP PCR PANEL 2025-08-04 12: [facility] NOT DETECTED (missing) Negative results for this organism do not preclude infection with this organism and may require additional laboratory testing (e.g., bacterial and viral culture, immunofluorescence, and radiography) when evaluating a patient with possible respiratory tract infection. M. PNEUMONIAE- RESP PCR PANEL 2025-08-04 12:00 [facility] NOT DETECTED (missing) Negative results for this organism do not preclude infection with this organism and may require additional laboratory testing (e.g., bacterial and viral culture, immunofluorescence, and radiography) when evaluating a patient with possible respiratory tract infection. CORONAVIRUS 229E-RESP PCR 2025-08-04 12:00 [facility] NOT DETECTED (missing) Negative results in the setting ofa respiratory illness may be due to infection with pathogens not detected by this test, or lower respiratory tract infection that may not be detected by nasopharyngeal specimen. CORONAVIRUS HKU1-RESP PCR 2025-08-04 12:00 [facility] NOT DETECTED (missing) Negative results in the setting ofa respiratory illness may be due to infection with pathogens not detected by this test, or lower respiratory tract infection that may not be detected by nasopharyngeal specimen. CORONAVIRUS GY84-WOMK PCR 2025-08-04 12:00 [facility] NOT DETECTED (missing) Negative results in the setting ofa respiratory illness may be due to infection with pathogens not detected by this test, or lower respiratory tract infection that may not be detected by nasopharyngeal specimen. CORONAVIRUS PF00-PNSU PCR 2025-08-04 12:00 [facility] NOT DETECTED (missing) Negative results in the setting ofa respiratory illness may be due to infection with pathogens not detected by this test, or lower respiratory tract infection that may not be detected by nasopharyngeal specimen. HUMAN METAPNEUMOVIRUS 2025-08-04 12:00 [facility] NOT DETECTED (missing) Negative results in the setting ofa respiratory illness may be due to infection with pathogens not detected by this test, or lower respiratory tract infection that may not be detected by nasopharyngeal specimen. INFLUENZA B - RESP PCR PANEL 2025-08-04 12:00 [facility] NOT DETECTED (missing) Negative results in the setting ofa respiratory illness may be due to infection with pathogens not detected by this test, or lower respiratory tract infection that may not be detected by nasopharyngeal specimen. PARAINFLUENZA VIRUS 1 2025-08-04 12:00 [facility] NOT DETECTED (missing) Negative results in the setting ofa respiratory illness may be due to infection with pathogens not detected by this test, or lower respiratory tract infection that may not be detected by nasopharyngeal specimen. PARAINFLUENZA VIRUS 2 2025-08-04 12:00 [facility] NOT DETECTED (missing) Negative results in the setting ofa respiratory illness may be due to infection with pathogens not detected by this test, or lower respiratory tract infection that may not be detected by nasopharyngeal specimen. PARAINFLUENZA VIRUS 3 2025-08-04 12:00 [facility] NOT DETECTED (missing) Negative results in the setting ofa respiratory illness may be due to infection with pathogens not detected by this test, or lower respiratory tract infection that may not be detected by nasopharyngeal specimen. PARAINFLUENZA VIRUS 4 2025-08-04 12:00 [facility] NOT DETECTED (missing) Negative results in the setting ofa respiratory illness may be due to infection with pathogens not detected by this test, or lower respiratory tract infection that may not be detected by nasopharyngeal specimen. RHINOVIRUS/ENTEROVI DIEGO 2025-08-04 12:00 [facility] NOT DETECTED (missing) Negative results in the setting ofa respiratory illness may be due to infection with pathogens not detected by this test, or lower respiratory tract infection that may not be detected by nasopharyngeal specimen. RSV- RESP PCR PANEL 2025-08-04 12:00 [facility] NOT DETECTED (missing) Negative results in the setting ofa respiratory illness may be due to infection with pathogens not detected by this test, or lower respiratory tract infection that may not be detected by nasopharyngeal specimen. ADENOVIRUS - RESP PCR PANEL 2025-08-04 12:00 [facility] NOT DETECTED (missing) YES Negative results in the setting ofa respiratory illness may be due to infection with pathogens not detected by this test, or lower respiratory tract infection that may not be detected by nasopharyngeal specimen. Result panel 4 VBG BASE EXCESS 2025-08-04 12:18 [facility] -20.0 mm ol/l (missing) VBG PCO2 2025-08-04 12:18 [facility] 23.3 mmhg (missing) V[facility] PO2 2025-08-04 12:18 [facility] 43.5 mmhg (missing) [facility] OXYGEN SATURATION 2025-08-04 12:18 [facility] 56.0 % (missing) [facility] PH 2025-08-04 12:18 [facility] 7.173 (missing ) Called to SUMA Cabrales RN/ED by Maria Eugenia Fink M.T.(AAB) at 1237 08/04/25. Read back(Y/N)? Y [facility] HCO3 2025-08-04 12:18 [facility] 8.6 mmol/l (missing) [facility] TOTAL CO2 2025-08-04 12:18 [facility] 9.4 mmol /l (missing) Result panel 5 WBC,URINE 2025-08-04 12:35 [facility] >25 /hpf (missing) UROBILINOGEN,URI NE 2025-08-04 12:35 [facility] 0.2 (NORMAL) e.u./dl (missing) SPECIFIC GRAVITY,URINE 2025-08-04 12:35 [facility] 1.025 (missing) (missing) RBC,URINE 2025-08-04 12:35 [facility] 11-25 /hpf (missing) PROTEIN,URINE 2025-08-04 12:35 [facility] 30 mg/dl (missing) PH,URINE 2025-08-04 12:35 [facility] 6.5 ph (missing) COLOR,URINE 2025-08-04 12:35 [facility] BROWN (missing) URINE CATHETERIZED CLARITY,URINE 2025-08-04 12:35 [facility] CLOUDY (missing) (missing) SQUAMOUS EPITHELIAL CELL,UR 2025-08-04 12:35 [facility] FEW Squamous (missing) (missing) UR CULTURE IF IND 2025-08-04 12:35 [facility] INDICATED (missing) (missing) LEUKOCYTE ESTERASE, URINE 2025-08-04 12:35 [facility] MODERATE (missing) (missing) OCCULT BLOOD,URINE 2025-08-04 12:35 [facility] MODERATE (missing) (missing) BACTERIA,URINE 2025-08-04 12:35 [facility] Many /hpf (missing) NITRITE,URINE 2025-08-04 12:35 [facility] NEGATIVE (missing) (missing) GLUCOSE, URINE (UA) 2025-08-04 12:35 [facility] NEGATIVE mg/dl (missing) KETONES,URINE (UA) 2025-08-04 12:35 [facility] NEGATIVE mg/dl (missing) BILIRUBIN,URINE 2025-08-04 12:35 [facility] SMALL (missing) Bilirubin can be influenced by color interference. Please correlate positive results with clinical presentation Result panel 6 LACTIC ACID, VENOUS 2025-08-04 14:49 [facility] 9.1 mmol/l N Critical result LAC 9.1 mmol/L called to and read back by ANGELICA Gonsalez RN at 04-Aug-2025 15:11 by [email or web address]. As of February 2023 testing method has changed, this may include reference ranges. Social History date description facility
[2025-08-04] MEDS: NOREPINEPHRINE/0.9 % NS 8 MG/250 ML BAG IV SCH (15:26)
[2025-08-04] MEDS ORDERED: ACETAMINOPHEN 325 MG TABLET PO PRN (15:37)
[2025-08-04] MEDS: CEFEPIME 2 GM in SODIUM CHLORIDE 0.9% MINIBAG 100 ML IV STA (15:59)
[2025-08-04] MEDS: PANTOPRAZOLE 40 MG VIAL IVP SCH (16:18)
[2025-08-04] MEDS: LACTATED RINGERS 1,000 ML IV SCH (16:18)
[2025-08-04] MEDS: SODIUM BICARBONATE ABBOJECT 50 MEQ/50 ML SYRINGE IVP ONE (16:32)
[2025-08-04] MEDS: SODIUM CHLORIDE FLUSH 0.9% 10 ML SYRINGE IVP SCH (16:32)
--- NOTE | 2025-08-04 16:48 | PHARMACY PROGRESS NOTE ---
Best Possible Medication History Admit Date and Time: 08/04/25 [id number] Home Medications Medication Instructions Recorded Confirmed Type folic acid 1 mg tablet 1 mg PO DAILY 09/05/1408/04 History metformin 500 mg tablet 500 mg PO BID 09/05/1408/04 History nitroglycerin 0.4 mg sublingual 1 tab sublingual PRN P RN Angina 09/02/17 08/04/25 History tablet pantoprazole 40 mg tablet,delayed 40 mg PO DAILY 09/0208/04/25 History release acetaminophen 650 mg 650 mg PO QID 08/23/2408/04 History tablet,extended release famotidine 20 mg tablet 20 mg PO DAILY 08/23/2407/14 History albuterol sulfate 90 mcg/actuation 2 puff inhalation Q 4H PRN 08/04/25 08/04/25 History aerosol inhaler shortness of breath or wheez ing aspirin 81 mg chewable tablet 81 mg PO DAILY 08/04/25 08/04/25 History atorvastatin 10 mg tablet 10 mg PO DAILY 08/04/2507/14 History calcium 600 mg (as 1 tab PO DAILY 08/04/2507/14 History carbonate)-vitamin D3 5 mcg (200 unit) tablet (Calcium 600 + D(3)) duloxetine 60 mg capsule,delayed 60 mg PO DAILY 08/04/25 History release levothyroxine 112 mcg tablet 112 mcg PO DAILY 08/04/25 08/04/25 History (Synthroid) magnesium 200 mg tablet 200 mg PO DAILY 08/04/25 History metoprolol tartrate 25 mg tablet 25 mg PO BID 08/04/25 08/04/25 History multivitamin (Daily Multi-Vitamin 1 tab PO DAILY 08/0408/04/25 History tablet) ondansetron 4 mg disintegrating 4 mg PO Q6H PRN nausea and vomiting 08/04/25 08/04/25 History tablet vitamin B complex (Vitamins B 1 cap PO DAILY 08/04/25 08/04/25 History Complex capsule) Processed by: Pharmacy (Medication reconciliation completed by Relish BlenderMaura) Medications reviewed in ED?: No Medication History completed: Yes Patient Interview: Completed Secondary Source(s): Written medication list (Medication list from admission to different facility), Other family member and Insurance records [facility] Statement: As the person ultimately responsible for medication therapy, providers are able to order a medication from an existing home medication list in [facility] via the "Reconcile Routine" prior to Confirmation of that medication by presidential support specialist. Such practice is discouraged except when the physician, in their clinical judgment, deems that a medical need exists for a medication without regard to previous use.
--- NOTE | 2025-08-04 17:11 | ANESTHESIA PROCEDURE NOTE ---
Anesth Central Line Template Central Line Procedure Date: 08/04/25 Central Line Preparation: Consent Obtained, Time out completed, Ultrasound used and Sterile prep and drape Central line location: Right IJ Central line type: Triple lumen Central line catheter tip site resides: Superior vena cava (SVC) Central line aftercare: Chlorhexidine disc placed, Secured, Placement confirmed (pending imaging ), No complications and Pt tolerated well
[2025-08-04 17:31] LABS: ABG BASE EXCESS 30.9 mmol/L (-2.0-3.0); ABG HCO3 52.6 mmol/L (22.0-26.0); ABG OXYGEN SATURATION 93 % (95-98); ABG PCO2 53 mmHg (34-45); ABG PO2 63 mmHg (83-108)
[2025-08-04 17:35] LABS: ABG PH 7.60 (7.35-7.45); ABG TCO2 54.3 mmol/L (21.0-29.0)
[2025-08-04 17:46] LABS: BUN - BLOOD UREA NITROGEN 37.0 mg/dL (6-20); CARBON DIOXIDE - CO2 21.0 mmol/L (21-32); CREATININE 1.2 mg/dL (0.6-1.3); GFR - MDRD 42.0 (>89)
[2025-08-04] MEDS ORDERED: COD LIVER OIL/ZINC OXIDE 113 GM TUBE TOP PRN (17:48)
[2025-08-04] MEDS: PIPERACILLIN/TAZOBACTAM 4.5 GM in SODIUM CHLORIDE 0.9% MINIBAG 100 ML IV SCH (18:26)
[2025-08-04] MEDS: INSULIN REGULAR, HUMAN 300 UNIT/3 ML PEN SUBQ SCH (18:26)
[2025-08-04] MEDS: ALBUMIN 25% 12.5 GM/50 ML VIAL IV STA (22:21)
[2025-08-04] MEDS: HYDROCORTISONE SUCCINATE 100 MG/2 ML VIAL IVP SCH (22:21)
[2025-08-04] MEDS: VASOPRESSIN 20 UNIT in DEXTROSE 5% 99 ML IV SCH (22:21)
[2025-08-04] MEDS: SODIUM CHLORIDE FLUSH 0.9% 10 ML SYRINGE IVP PRN (22:24)
[2025-08-05] MEDS: SODIUM BICARBONATE ABBOJECT 50 MEQ/50 ML SYRINGE IVP ONE (00:19)
[2025-08-05] MEDS: DOPamine 400 MG/250 ML 400 MG/250 ML BAG IV SCH (00:19)
[2025-08-05] MEDS: DEXTROSE 50% ABBOJECT 25 GM/50 ML SYRINGE IVP ONE (00:19)
[2025-08-05] MEDS: SODIUM CHLORIDE 0.9% 500 ML IV ONE (00:19)
[2025-08-05] MEDS: CARBOXYMETHYLCELLULOSE OPHTH DROPS EACHEYE PRN (00:59)
[2025-08-05 01:10] VITALS: BP 53/31; TEMP 98.8
[2025-08-05 01:12] VITALS: O2SAT 78
--- NOTE | 2025-08-05 02:09 | PROVIDER PROGRESS NOTE ---
Hospitalist Cross-cover Note Cross-Cover Note Cross-Cover Note: Patient clinically declining spoke with son and later daughter, patient on multiple pressors not improving, family aware no cpr, patient went in to asystole while family at bedside.
--- NOTE | 2025-08-05 07:49 | Discharge Summary ---
"Discharge Summary Admit Date: 08/04/25 Discharge Date: 08/05/25 Discharging Provider: Dr. Oswaldo Cohen Primary Care Provider: Samantha Godfrey Code Status: Do Not Attempt Resuscitation Discharge Facility Name: Patient DIAGNOSES Discharge Diagnoses with Status of Each Condition: Septic shock, pneumonia, urinary tract infectionpatient presented with lethargy, altered mental status. She was found to be in septic shock with a lactic acid of 9.1. She was started on broad spectrum antibiotics with vancomycin and Zosyn. She received appropriate IV fluid resuscitation, and remained hypotensive. She was started on Levophed. Overnight, this was escalated to 2 vasopressin and Levophed, as well as stress dose steroids. CTA showed extensive right-sided pneumonia, and her oxygen requirements steadily increased throughout the night as well. She was placed on high flow nasal cannula. Patient's family, daughter, was at bedside. She did not want any further escalation of care including intubation. Patient was already DNR. Despite the above aggressive medical care, patient passed with daughter at bedside. HPI History of Present Illness: Patient is a 85-year-old female with a history of hypothyroidism, hypertension who has had a progressive decline since a fall about 8 weeks ago. She was recently admitted to [facility] and underwent surgery for angulated displaced comminuted distal femoral fracture. After this, she was admitted to rehab, and then was sent home with home health. Daughter is at bedside, and states that she noticed progressive decline over the last few days. She was unresponsive, not eating or drinking anything. She did not complain of any fevers or chills. She did not complain of any abdominal pain or urinary symptoms either. Patient is responsive to verbal stimuli, and turns towards voice but is unable to respond meaningfully past that. In the ER, patient was hypotensive despite 3 L of IV fluid resuscitation. Central line was placed and she was started on Levophed. She has been tachycardic with heart rate ranging from 90-1 03. She has been afebrile. She is tachypneic with respiratory rate between 20-30. She saturating 94% on 10 L at this time. Lab work was reviewedshe has no leukocytosis, she does have a severe metabolic acidosis with a high anion gap, a lactic acid of 9.1. Urinalysis is positive for infection. Respiratory viral panel is negative. Chest x-ray is reviewed. Abdomen/pelvis CT shows bilateral pneumonia, large on the right and focal on the left. Diffuse bladder wall thickening inflammatory changes are also noted. No pulmonary embolus is noted. Large hiatal hernia is noted with likely reflux. Head CT is negative. CTA does show calcification of right subclavian. She was started on broad-spectrum antibiotics and admitted for septic shock. Past medical history includes GERD, diabetes, hypothyroidism, hypertension. Medications include atorvastatin, aspirin, levothyroxine, metoprolol, Protonix. She has no known drug allergies Surgical history includes recent orthopedic surgery at [facility]. Daughter states he does not drink, smoke, or use any recreational drugs. Prior to the fracture, she was conversive, able to engage in conversation, and largely active. Goals of care were discussed with the daughter, Rey is okay with vasopressors and central line placement, however, she states that patient is a DO NOT RESUSCITATE and DO NOT INTUBATE. She understands that her mother is critically ill at this time. CONSULTS | PROCEDURES Procedures: Central line, arterial line placement Chest x-raybilateral pulmonary opacities. CTA head and neckmoderate to severe calcified stenosis of proximal right subclavian. Head CTno acute intracranial pathology. CTAextensive right-sided pneumonia, focal left-sided pneumonia. Abdomen/pelvis CTbilateral pneumonia, large on the right and focal on the left. HOSPITAL COURSE Hospital Course: Patient is a 85-year-old female with a history of hypothyroidism, hypertension who has had a progressive decline since a fall about 8 weeks ago. She was recently admitted to [place] and underwent surgery for angulated displaced comminuted distal femoral fracture. After this, she was admitted to rehab, and then was sent home with home health. Daughter is at bedside, and states that she noticed progressive decline over the last few days. She was unresponsive, not eating or drinking anything. She did not complain of any fevers or chills. She did not complain of any abdominal pain or urinary symptoms either. She was found to be in septic shock with a lactic acid of 9.1. She was started on broad spectrum antibiotics with vancomycin and Zosyn. She received appropriate IV fluid resuscitation, and remained hypotensive. She was started on Levophed. Overnight, this was escalated to both vasopressin and Levophed, as well as stress dose steroids. CTA showed extensive right-sided pneumonia, and her oxygen requirements steadily increased throughout the night as well. She also had a urinary tract infection with gross pyuria. She was placed on high flow nasal cannula. Patient's family, daughter, was at bedside. She did not want any further escalation of care including intubation. Patient was already DNR. She went into asystole. She was DNR. Patient passed with daughter at bedside. ALLERGIES Allergies Allergy/AdvReac Type Severity Reaction Status Date / Time No Known Drug Allergies Allergy Verified 08/04/25 12:24 MEDICATIONS Ambulatory Orders Medication Instructions Recorded Confirmed folic acid 1 mg tablet 1 mg PO DAILY 09/05/1408/04 metformin 500 mg tablet 500 mg PO BID 09/05/1408/04 nitroglycerin 0.4 mg sublingual 1 tab sublingual PRN P RN Angina 09/02/17 08/04/25 tablet pantoprazole 40 mg tablet,delayed 40 mg PO DAILY 09/0208/04/25 release acetaminophen 650 mg 650 mg PO QID 08/23/2408/04 tablet,extended release famotidine 20 mg tablet 20 mg PO DAILY 08/23/2407/14 albuterol sulfate 90 mcg/actuation 2 puff inhalation Q 4H PRN 08/04/25 08/04/25 aerosol inhaler shortness of breath or wheez ing aspirin 81 mg chewable tablet 81 mg PO DAILY 08/04/25 08/04/25 atorvastatin 10 mg tablet 10 mg PO DAILY 08/04/2507/14 calcium 600 mg (as 1 tab PO DAILY 08/04/2507/14 carbonate)-vitamin D3 5 mcg (200 unit) tablet (Calcium 600 + D(3)) duloxetine 60 mg capsule,delayed 60 mg PO DAILY 08/04/25 release levothyroxine 112 mcg tablet 112 mcg PO DAILY 08/04/25 08/04/25 (Synthroid) magnesium 200 mg tablet 200 mg PO DAILY 08/04/25 metoprolol tartrate 25 mg tablet 25 mg PO BID 08/04/25 08/04/25 multivitamin (Daily Multi-Vitamin 1 tab PO DAILY 08/0408/04/25 tablet) ondansetron 4 mg disintegrating 4 mg PO Q6H PRN nausea and vomiting 08/04/25 08/04/25 tablet vitamin B complex (Vitamins B 1 cap PO DAILY 08/04/25 08/04/25 Complex capsule) PHYSICAL EXAM AT DISCHARGE Vital Signs: Vital Signs x48h Temp Pulse Resp BP Pulse Ox O2 Flow Rate 08/05/25 01:00 98.8 F 78 27 H 53/31 L 78 L 45 08/05/25 00:00 99.3 F 85 49/33 L Patient passed overnight. LABS 08/04/25 11:33 08/05/25 00:04 TIME SPENT Time Spent in Discharge (Minutes): 25 Discharge Plan Discharge Patient Disposition: 20 Print Language: Ukrainian Date/Time: 08/05/25 01:57"
--- NOTE | 2025-08-05 08:35 | XRAY Report ---
PROCEDURE: XR Chest for Line Placement INDICATIONS: Right IJ placement TECHNIQUE: One view of the chest was acquired. COMPARISON: 08/04/2025 FINDINGS: Surgical changes and devices: Right central catheter with tip projecting over the distal SVC. Lungs and pleura: No pneumothorax. Bilateral pulmonary opacities, greater on the right are redemonstrated. Possible small right pleural effusion. Mediastinum: Mediastinal contours appear normal. Heart size is normal. Bones and chest wall: No suspicious bony lesions. Overlying soft tissues appear unremarkable. IMPRESSION: Right central venous catheter with tip projecting over the distal SVC. Redemonstration of bilateral pulmonary opacities. Reviewed by: Suresh Swann MD on 08/05/2025 8:32 AM PST Approved by: Suresh Swann MD on 08/05/2025 8:32 AM PST Station ID: [id number]
[2025-08-05] MEDS ORDERED: VANCOMYCIN INJ 0.75 GM in SODIUM CHLORIDE 0.9% 250 ML IV SCH (12:00)
== END 2025-08-05 01:57 | disposition expired | DRG 871 ==
LOC: ED 11:14 → ICU 15:13
PROVIDERS: ADMIT Internal Medicine; ATTEND Internal Medicine
DX: Z87.81 Personal history of (healed) traumatic fracture; N39.0 Urinary tract infection, site not specified; I48.91 Unspecified atrial fibrillation; Z79.82 Long term (current) use of aspirin; E03.9 Hypothyroidism, unspecified; J96.01 Acute respiratory failure with hypoxia; K21.9 Gastro-esophageal reflux disease without esophagitis; Z11.52 Encounter for screening for COVID-19; Z87.891 Personal history of nicotine dependence; E87.20 Acidosis, unspecified; A41.9 Sepsis, unspecified organism; Z91.81 History of falling; J18.9 Pneumonia, unspecified organism; Z66 Do not resuscitate; I44.7 Left bundle-branch block, unspecified; Z79.890 Hormone replacement therapy; Z79.899 Other long term (current) drug therapy; I95.9 Hypotension, unspecified; I50.9 Heart failure, unspecified; Z79.84 Long term (current) use of oral hypoglycemic drugs; I11.0 Hypertensive heart disease with heart failure; E11.9 Type 2 diabetes mellitus without complications; K44.9 Diaphragmatic hernia without obstruction or gangrene; G93.41 Metabolic encephalopathy; R65.21 Severe sepsis with septic shock; I25.10 Atherosclerotic heart disease of native coronary artery without angina pectoris